=== PATIENT | female | born 1955 | race Caucasian/White ===

== ENCOUNTER 2018-08-19 10:01 | Inpatient (IN) ==
[2018-08-19] MEDS ORDERED: SODIUM CHLORIDE 0.9% 1000ML 1,000 ML IV ONE (10:16)
[2018-08-19] MEDS ORDERED: PIPERACILL/TAZOBAC CONSULT ACTIVE PRN ×2 (10:21→12:38)
[2018-08-19] MEDS ORDERED: PIPERACILLIN/TAZOBACTAM 4.5 GM/120 ML BAG IV ONE (10:21)
--- NOTE | 2018-08-19 10:27 | Emergency Department Note ---
Entered by Kevin Damon acting as a scribe for Gustabo Rajput DO History of Present Illness General Chief complaint: Lethargic Time Seen by Provider: 08/19/18 10:11 Source: patient Limitations: altered mental status History of Present Illness Provider complaint: Fever/Lower abdominal pain Onset (ago): day(s) (today) Location: head (AMS) and abdomen Pain Consistency: + other (persistent AMS) Quality: + other (Fever) Treatments prior to arrival: other (Tylenol) This history is limited secondary to the altered mental status of the patient. The patient is a 63 year old female who presents to the Emergency Room from [facility] for an altered mental status with elevated creatinine and lithium levels as well as a fever. The patient has been in [facility] for 1 week. Today the patient was found to be febrile with abnormal labs as mentioned above. Her fever broke with Tylenol given pre-hospital. She is currently complaining of lower abdominal pain. EMS state that upon her arrival she was tachycardic and slightly hypotensive. The note from [facility] states that her Sodium was 154. Her medical record reveals a history of diabetes, hypertension, CAD, HLD, glaucoma, and major depressive disorder. Home Medications Home Medications Medication Instructions Recorded Confirmed Type acetaminophen 325 mg PO Q4H PRN 08/19/18 08/19/18 History alum-mag hydroxide-simeth [Mag-Al 30 ml PO QID PRN 08/19/18 08/19/18 History Plus] aripiprazole 15 mg PO DAILY 08/19/18 08/19/18 History atorvastatin 40 mg PO HS 08/19/18 08/19/18 History lamotrigine 50 mg PO BID 08/19/18 08/19/18 History lorazepam 0.5 mg PO TID PRN 08/19/18 08/19/18 History magnesium hydroxide [Milk of 30 ml PO DAILY PRN 08/19/18 08/19/18 History Magnesia] montelukast 10 mg PO PM 08/19/18 08/19/18 History omeprazole 20 mg PO DAILY 08/19/18 08/19/18 History trazodone 100 mg PO DAILY 08/19/18 08/19/18 History Allergies Allergy/AdvReac Type Severity Reaction Status Date / Time aspirin Allergy Unknown Unverified 08/19/18 10:50 codeine Allergy Unknown Unverified 08/19/18 10:50 diazepam Allergy Unknown Unverified 08/19/18 10:50 fluoxetine Allergy Unknown Unverified 08/19/18 10:50 paroxetine Allergy Unknown Unverified 08/19/18 10:50 pseudoephedrine Allergy Unknown Unverified 08/19/18 10:50 tramadol Allergy Unknown Unverified 08/19/18 10:50 Past Med/Surg History Medical History Diabetes H/O: hysterectomy HLD (hyperlipidemia) HTN (hypertension) Major depressive disorder Surgical History History of appendectomy History of cholecystectomy Status post creation of urethral sling by suprapubic approach Social History Current Living Situation: Other Current Living Situation Comment: resides at [facility] Other Information That Helps Us Care for You: No Feels Safe at Home: Yes Safety Concerns: Feels Safe At This Time Smoking Status: Never smoker Do You Dip or Chew Tobacco: No Second Hand Exposure: No Tobacco Cessation Education Requested by Patient: No Hx Alcohol Use: No Hx Substance Use: No Beliefs That Will Affect Care: None Preferred Language: Tajik Communication Ability: Effective Realty Specialist Required: No Review of Systems ROS limited secondary to AMS Physical Exam Vital Signs Vital Signs - 24 hr 08/19/18 10:09 08/19/18 10:38 08/19/18 10:51 Temperature 37 C Temperature Source Oral Sepsis Recent Fever Within 48 Hours No Sepsis Action Taken by Nursing No Action Required Pulse Rate 121 H 121 H Pulse Rate [Apical] 122 H Pulse Rhythm Regular Pulse Rhythm [Apical] Regular Pulse Strength [Apical] Normal Respiratory Rate 20 28 H 17 Respiratory Effort / Characteristics Non-Labored Spontaneous Non-Labored Spontaneous Respiratory Depth Normal Normal Respiratory Pattern Regular Blood Pressure 115/72 Blood Pressure [Right Arm] 120/64 Blood Pressure Mean 86 Blood Pressure Mean [Right Arm] 82 Blood Pressure Position Lying Blood Pressure Position [Right Arm] Lying Pulse Oximetry 98 95 95 Oxygen Delivery Method Room Air Room Air Room Air 08/19/18 11:19 08/19/18 12:03 08/19/18 13:00 Temperature Temperature Source Sepsis Recent Fever Within 48 Hours Sepsis Action Taken by Nursing Pulse Rate Pulse Rate [Apical] 91 H 114 H 94 H Pulse Rhythm Pulse Rhythm [Apical] Pulse Strength [Apical] Respiratory Rate 20 24 20 Respiratory Effort / Characteristics Non-Labored Respiratory Depth Normal Respiratory Pattern Blood Pressure Blood Pressure [Right Arm] 117/58 L 114/65 144/64 H Blood Pressure Mean Blood Pressure Mean [Right Arm] 77 81 90 Blood Pressure Position Blood Pressure Position [Right Arm] Pulse Oximetry 95 92 98 Oxygen Delivery Method Room Air Room Air Room Air 08/19/18 13:35 08/19/18 14:30 08/19/18 14:35 Temperature 36.9 C Temperature Source Oral Sepsis Recent Fever Within 48 Hours Sepsis Action Taken by Nursing Pulse Rate 83 Pulse Rate [Apical] 83 Pulse Rhythm Pulse Rhythm [Apical] Regular Pulse Strength [Apical] Normal Respiratory Rate 20 20 Respiratory Effort / Characteristics Non-Labored Spontaneous Non-Labored Spontaneous Respiratory Depth Normal Normal Respiratory Pattern Regular Regular Blood Pressure 135/56 L Blood Pressure [Right Arm] 114/68 Blood Pressure Mean Blood Pressure Mean [Right Arm] 83 Blood Pressure Position Blood Pressure Position [Right Arm] Lying Pulse Oximetry 93 94 Oxygen Delivery Method Room Air Room Air Room Air 08/19/18 15:57 08/19/18 18:45 Temperature 36.8 C 37.1 C Temperature Source Oral Oral Sepsis Recent Fever Within 48 Hours Sepsis Action Taken by Nursing Pulse Rate Pulse Rate [Apical] 94 H 93 H Pulse Rhythm Pulse Rhythm [Apical] Pulse Strength [Apical] Respiratory Rate 18 18 Respiratory Effort / Characteristics Respiratory Depth Respiratory Pattern Blood Pressure Blood Pressure [Right Arm] 132/69 137/77 Blood Pressure Mean Blood Pressure Mean [Right Arm] 90 97 Blood Pressure Position Blood Pressure Position [Right Arm] Lying Lying Pulse Oximetry 95 94 Oxygen Delivery Method Room Air Room Air GENERAL: Patient is awake and alert. She is somewhat anxious appearing. She follows commands intermittently but slowly. EYES: The conjunctivae are clear. The pupils are round and reactive. EARS, NOSE, MOUTH AND THROAT: Mucous members are dry. NECK: The neck is nontender and supple. RESPIRATORY: Normal respiratory effort is noted there is no evidence of wheezing rhonchi or rales CARDIOVASCULAR: Tachycardic rate with regular rhythm was noted. There is no definite murmur noted to auscultation. GASTROINTESTINAL: The abdomen is moderately distended and suprapubic tenderness is noted to palpation. There is no guarding or rigidity. MUSCULOSKELETAL/EXTREMITIES: There is no evidence of gross deformity full range of motion is noted in the hips and shoulders SKIN: There is no obvious evidence of any rash. Trace pedal edema was noted bilaterally. NEUROLOGIC: Patient is awake. She does not answer questions appropriately. I am unable to assess orientation at this time. Patellar tendon reflexes are diminished bilaterally. Patient is tremulous. Course 1017: Past medical records reviewed. The patient was evaluated in room B6, and a complete history and physical examination were performed. 1251: I reviewed the patient's case with Dr. Donny TTAE Hospitalist. He will evaluate the patient for further management. Consultations Consultation #1: 1251: I reviewed the patient's case with Dr. Donny TATE Hospitalist. He will evaluate the patient for further management. Administered Medications Atorvastatin Calcium (Lipitor) 40 mg PO HS CH[facility]O Stop: 09/18/18 20:59 Last Admin: 08/19/18 21:32 Dose: 40 mg Heparin Sodium (Porcine) (Heparin Sodium (Porcine)) 5,000 units SQ Q12 [facility] Stop: 09/18/18 20:59 Last Admin: 08/19/18 21:31 Dose: 5,000 units Piperacillin Sod/Tazobactam (Sod 3.375 gm/ Dextrose) 115 mls @ 28.75 mls/hr IV Q12H CHAYITO; Protocol Stop: 08/21/18 18:59 Last Admin: 08/19/18 19:47 Dose: 28.8 mls/hr Sodium Chloride (Nss 1000ml) 1,000 mls @ 125 mls/hr IV .Q8H [facility] Stop: 09/18/18 15:14 Last Admin: 08/19/18 15:30 Dose: 125 mls/hr Insulin Aspart (Novolog Flexpen) 0 units SC ACHS CH[facility]O; Protocol Stop: 09/18/18 16:29 Last Admin: 08/19/18 21:34 Dose: Not Given Admin: 08/19/18 17:12 Dose: Not Given Lamotrigine (Lamictal) 50 mg PO BID CH[facility]O Stop: 09/18/18 20:59 Last Admin: 08/19/18 21:33 Dose: 50 mg Discontinued Medications Sodium Chloride (Nss 1000ml) 1,000 mls @ 999 mls/hr IV .Q1H1M ONE Stop: 08/19/18 11:16 Last Infusion: 08/19/18 12:01 Dose: 0 mls/hr Admin: 08/19/18 10:43 Dose: 999 mls/hr Piperacillin Sod/Tazobactam Sod (Zosyn) 4.5 gm in 120 mls @ 240 mls/hr IV NOW ONE Stop: 08/19/18 10:50 Last Infusion: 08/19/18 12:01 Dose: 0 mls/hr Admin: 08/19/18 11:20 Dose: 240 mls/hr Sodium Chloride (Nss 1000ml) 2,000 mls @ 999 mls/hr IV .Q2H1M ONE Stop: 08/19/18 12:51 Last Infusion: 08/19/18 15:25 Dose: 0 mls/hr Admin: 08/19/18 12:01 Dose: 999 mls/hr Medical Decision Making Differential Diagnosis Differential diagnosis: Etiologies such as sepsis, UTI, pneumonia, bacteremia, metabolic process, electrolyte abnormalities, cardiac sources, intracerebral event, intra- abdominal process, toxicological process, neurologic process, as well as others were entertained. Medical Records Attestation: I reviewed the patient's medical records. Home Medications Current Medication List: was personally reviewed by me Laboratory Data Attestation: I reviewed the patient's lab results. Result diagrams: 08/19/18 10:40 08/19/18 10:40 Lab Results 08/19/18 08/19/18 08/19/18 Range/Units 10:40 10:40 10:40 WBC 20.10 H (4.8-10.8) K/uL RBC 4.23 (4.2-5.4) M/uL Hgb 13.3 (12.0-16.0) g/dL POC Hgb (12.0-16.0) g/dl Hct 41.8 (37-47) % POC Hct (37-47) % MCV 98.8 (80-100) fL MCH 31.4 (25-34) pg MCHC 31.8 L (32-36) g/dL RDW Std Deviation 50.2 H (36.4-46.3) fL RDW Coeff of Shayy 14.1 (11.5-14.5) % Plt Count 327 (130-400) K/uL MPV 10.1 (7.4-10.4) fL Immature Gran % (Auto) 0.3 % Neut % (Auto) 74.8 % Lymph % (Auto) 19.0 % [place] % (Auto) 5.1 % Eos % (Auto) 0.5 % Baso % (Auto) 0.3 % Immature Gran # (Auto) 0.07 H (0.00-0.02) K/uL Neut # (Auto) 15.02 H (1.4-6.5) K/uL Lymph # (Auto) 3.81 H (1.2-3.4) K/uL [place] # (Auto) 1.02 H (0.11-0.59) K/uL Eos # (Auto) 0.11 (0-0.5) K/uL Baso # (Auto) 0.07 (0-0.2) K/uL ESR (0-21) mm/hr PT 11.8 (9.0-12.0) Seconds INR 1.2 H (0.9-1.1) APTT 24.0 (21.0-31.0) Seconds PTT Ratio 0.9 VBG pH (7.36-7.41) VBG pCO2 (38-50) mmHg VBG pO2 mmHg VBG HCO3 mmol/L VBG O2 Saturation % VBG Base Excess mEq/L Barometric Pressure mm/Hg POC Sodium (135-144) mEq/L Sodium 141 (136-145) mmol/L POC Potassium (3.3-5.0) mEq/L Potassium 4.0 (3.5-5.1) mmol/L POC Chloride (101-112) mEq/L Chloride 110 H (98-107) mmol/L Carbon Dioxide 24 (21-32) mmol/L POC Total CO2 (24-31) mEq/l Anion Gap 7.0 (3-11) POC Anion Gap (16-25) mmol/L POC BUN (7-18) mg/dl BUN 93 H (7-18) mg/dl Creatinine 5.66 H* (0.6-1.2) mg/dl POC Creatinine (0.6-1.3) mg/dl Est Cr Clr Drug Dosing 11.1 ml/min Est GFR ( Amer) 8.6 Est GFR (Non-Af Amer) 7.4 BUN/Creatinine Ratio 16.5 (10-20) Glucose 129 H (70-99) mg/dl POC Glucose (70-99) POC Glucose (other) (70-99) mg/dl Lactate (0.4-2.0) mmol/L Calcium 9.5 (8.5-10.1) mg/dl POC Ioniz Calcium Elaine (1.12-1.32) mmol/l Magnesium 2.5 H (1.8-2.4) mg/dl Total Bilirubin 0.7 (0.2-1) mg/dl AST 81 H (15-37) U/L ALT 49 (12-78) U/L Alkaline Phosphatase 79 (45-117) U/L Total Creatine Kinase (26-192) U/L Troponin I 0.479 H* (0-0.045) ng/ml C-Reactive Protein < 0.29 (0-0.29) mg/dl Total Protein 7.1 (6.4-8.2) gm/dl Albumin 3.7 (3.4-5.0) gm/dl Globulin 3.4 (2.5-4.0) gm/dl Albumin/Globulin Ratio 1.1 (0.9-2) Urine Color Urine Appearance (Clear) Urine pH (4.5-7.5) Ur Specific [place] (1.000-1.030) Urine Protein (Negative) Urine Glucose (UA) (Negative) Urine Ketones (Negative) Urine Blood (Negative) Urine Nitrite (Negative) Urine Bilirubin (Negative) Urine Urobilinogen (Negative) Ur Leukocyte Esterase (Negative) Urine WBC (Auto) (0-5) /hpf Urine RBC (Auto) (0-4) /hpf U Hyaline Cast (Auto) (0-5) /lpf U Epithel Cells (Auto) (0-5) /lpf Urine Bacteria (Auto) (Negative) Ur Renal Epithelial Cell (0-5) /lpf Calcium Oxalate Crystal (None Prsent) Amorphous Sediment (None Prsent) Granular Casts (0) /lpf Urine Mucus (None Prsent) Ur Random Creatinine mg/dl U Random Total Protein (0-11.9) mg/dl Ur Random Sodium mmol/L Protein/Creatinin Ratio (0-0.2) [place] (0.6-1.2) mmol/L 08/19/18 08/19/18 08/19/18 Range/Units 10:40 10:40 10:40 WBC (4.8-10.8) K/uL RBC (4.2-5.4) M/uL Hgb (12.0-16.0) g/dL POC Hgb (12.0-16.0) g/dl Hct (37-47) % POC Hct (37-47) % MCV (80-100) fL MCH (25-34) pg MCHC (32-36) g/dL RDW Std Deviation (36.4-46.3) fL RDW Coeff of Shayy (11.5-14.5) % Plt Count (130-400) K/uL MPV (7.4-10.4) fL Immature Gran % (Auto) % Neut % (Auto) % Lymph % (Auto) % [place] % (Auto) % Eos % (Auto) % Baso % (Auto) % Immature Gran # (Auto) (0.00-0.02) K/uL Neut # (Auto) (1.4-6.5) K/uL Lymph # (Auto) (1.2-3.4) K/uL [place] # (Auto) (0.11-0.59) K/uL Eos # (Auto) (0-0.5) K/uL Baso # (Auto) (0-0.2) K/uL ESR 11 (0-21) mm/hr PT (9.0-12.0) Seconds INR (0.9-1.1) APTT (21.0-31.0) Seconds PTT Ratio VBG pH (7.36-7.41) VBG pCO2 (38-50) mmHg VBG pO2 mmHg VBG HCO3 mmol/L VBG O2 Saturation % VBG Base Excess mEq/L Barometric Pressure mm/Hg POC Sodium (135-144) mEq/L Sodium (136-145) mmol/L POC Potassium (3.3-5.0) mEq/L Potassium (3.5-5.1) mmol/L POC Chloride (101-112) mEq/L Chloride (98-107) mmol/L Carbon Dioxide (21-32) mmol/L POC Total CO2 (24-31) mEq/l Anion Gap (3-11) POC Anion Gap (16-25) mmol/L POC BUN (7-18) mg/dl BUN (7-18) mg/dl Creatinine (0.6-1.2) mg/dl POC Creatinine (0.6-1.3) mg/dl Est Cr Clr Drug Dosing ml/min Est GFR ( Amer) Est GFR (Non-Af Amer) BUN/Creatinine Ratio (10-20) Glucose (70-99) mg/dl POC Glucose (70-99) POC Glucose (other) (70-99) mg/dl Lactate 1.6 (0.4-2.0) mmol/L Calcium (8.5-10.1) mg/dl POC Ioniz Calcium Elaine (1.12-1.32) mmol/l Magnesium (1.8-2.4) mg/dl Total Bilirubin (0.2-1) mg/dl AST (15-37) U/L ALT (12-78) U/L Alkaline Phosphatase (45-117) U/L Total Creatine Kinase (26-192) U/L Troponin I (0-0.045) ng/ml C-Reactive Protein (0-0.29) mg/dl Total Protein (6.4-8.2) gm/dl Albumin (3.4-5.0) gm/dl Globulin (2.5-4.0) gm/dl Albumin/Globulin Ratio (0.9-2) Urine Color Urine Appearance (Clear) Urine pH (4.5-7.5) Ur Specific [place] (1.000-1.030) Urine Protein (Negative) Urine Glucose (UA) (Negative) Urine Ketones (Negative) Urine Blood (Negative) Urine Nitrite (Negative) Urine Bilirubin (Negative) Urine Urobilinogen (Negative) Ur Leukocyte Esterase (Negative) Urine WBC (Auto) (0-5) /hpf Urine RBC (Auto) (0-4) /hpf U Hyaline Cast (Auto) (0-5) /lpf U Epithel Cells (Auto) (0-5) /lpf Urine Bacteria (Auto) (Negative) Ur Renal Epithelial Cell (0-5) /lpf Calcium Oxalate Crystal (None Prsent) Amorphous Sediment (None Prsent) Granular Casts (0) /lpf Urine Mucus (None Prsent) Ur Random Creatinine mg/dl U Random Total Protein (0-11.9) mg/dl Ur Random Sodium mmol/L Protein/Creatinin Ratio (0-0.2) [place] 1.2 (0.6-1.2) mmol/L 08/19/18 08/19/18 08/19/18 Range/Units 10:45 10:49 11:04 WBC (4.8-10.8) K/uL RBC (4.2-5.4) M/uL Hgb (12.0-16.0) g/dL POC Hgb 13.3 (12.0-16.0) g/dl Hct (37-47) % POC Hct 39 (37-47) % MCV (80-100) fL MCH (25-34) pg MCHC (32-36) g/dL RDW Std Deviation (36.4-46.3) fL RDW Coeff of Shayy (11.5-14.5) % Plt Count (130-400) K/uL MPV (7.4-10.4) fL Immature Gran % (Auto) % Neut % (Auto) % Lymph % (Auto) % [place] % (Auto) % Eos % (Auto) % Baso % (Auto) % Immature Gran # (Auto) (0.00-0.02) K/uL Neut # (Auto) (1.4-6.5) K/uL Lymph # (Auto) (1.2-3.4) K/uL [place] # (Auto) (0.11-0.59) K/uL Eos # (Auto) (0-0.5) K/uL Baso # (Auto) (0-0.2) K/uL ESR (0-21) mm/hr PT (9.0-12.0) Seconds INR (0.9-1.1) APTT (21.0-31.0) Seconds PTT Ratio VBG pH 7.41 (7.36-7.41) VBG pCO2 37 L (38-50) mmHg VBG pO2 50 mmHg VBG HCO3 23 mmol/L VBG O2 Saturation 83.8 % VBG Base Excess -1.1 mEq/L Barometric Pressure 739.3 mm/Hg POC Sodium 145 H (135-144) mEq/L Sodium (136-145) mmol/L POC Potassium 4.1 (3.3-5.0) mEq/L Potassium (3.5-5.1) mmol/L POC Chloride 108 (101-112) mEq/L Chloride (98-107) mmol/L Carbon Dioxide (21-32) mmol/L POC Total CO2 22 L (24-31) mEq/l Anion Gap (3-11) POC Anion Gap 20.0 (16-25) mmol/L POC BUN 93 H (7-18) mg/dl BUN (7-18) mg/dl Creatinine (0.6-1.2) mg/dl POC Creatinine 5.6 H* (0.6-1.3) mg/dl Est Cr Clr Drug Dosing ml/min Est GFR ( Amer) Est GFR (Non-Af Amer) BUN/Creatinine Ratio (10-20) Glucose (70-99) mg/dl POC Glucose (70-99) POC Glucose (other) 131 H (70-99) mg/dl Lactate (0.4-2.0) mmol/L Calcium (8.5-10.1) mg/dl POC Ioniz Calcium Elaine 1.19 (1.12-1.32) mmol/l Magnesium (1.8-2.4) mg/dl Total Bilirubin (0.2-1) mg/dl AST (15-37) U/L ALT (12-78) U/L Alkaline Phosphatase (45-117) U/L Total Creatine Kinase (26-192) U/L Troponin I (0-0.045) ng/ml C-Reactive Protein (0-0.29) mg/dl Total Protein (6.4-8.2) gm/dl Albumin (3.4-5.0) gm/dl Globulin (2.5-4.0) gm/dl Albumin/Globulin Ratio (0.9-2) Urine Color Dark Yellow Urine Appearance Cloudy H (Clear) Urine pH 5.0 (4.5-7.5) Ur Specific [place] 1.025 (1.000-1.030) Urine Protein Negative (Negative) Urine Glucose (UA) Negative (Negative) Urine Ketones Trace H (Negative) Urine Blood Negative (Negative) Urine Nitrite Negative (Negative) Urine Bilirubin Negative (Negative) Urine Urobilinogen Negative (Negative) Ur Leukocyte Esterase Negative (Negative) Urine WBC (Auto) 1-5 (0-5) /hpf Urine RBC (Auto) 0-4 (0-4) /hpf U Hyaline Cast (Auto) 5-10 H (0-5) /lpf U Epithel Cells (Auto) >30 H (0-5) /lpf Urine Bacteria (Auto) Negative (Negative) Ur Renal Epithelial Cell (0-5) /lpf Calcium Oxalate Crystal Present H (None Prsent) Amorphous Sediment Present H (None Prsent) Granular Casts (0) /lpf Urine Mucus (None Prsent) Ur Random Creatinine mg/dl U Random Total Protein (0-11.9) mg/dl Ur Random Sodium mmol/L Protein/Creatinin Ratio (0-0.2) [place] (0.6-1.2) mmol/L 08/19/18 08/19/18 08/19/18 Range/Units 15:47 16:27 17:35 WBC (4.8-10.8) K/uL RBC (4.2-5.4) M/uL Hgb (12.0-16.0) g/dL POC Hgb (12.0-16.0) g/dl Hct (37-47) % POC Hct (37-47) % MCV (80-100) fL MCH (25-34) pg MCHC (32-36) g/dL RDW Std Deviation (36.4-46.3) fL RDW Coeff of Shayy (11.5-14.5) % Plt Count (130-400) K/uL MPV (7.4-10.4) fL Immature Gran % (Auto) % Neut % (Auto) % Lymph % (Auto) % [place] % (Auto) % Eos % (Auto) % Baso % (Auto) % Immature Gran # (Auto) (0.00-0.02) K/uL Neut # (Auto) (1.4-6.5) K/uL Lymph # (Auto) (1.2-3.4) K/uL [place] # (Auto) (0.11-0.59) K/uL Eos # (Auto) (0-0.5) K/uL Baso # (Auto) (0-0.2) K/uL ESR 6 (0-21) mm/hr PT (9.0-12.0) Seconds INR (0.9-1.1) APTT (21.0-31.0) Seconds PTT Ratio VBG pH (7.36-7.41) VBG pCO2 (38-50) mmHg VBG pO2 mmHg VBG HCO3 mmol/L VBG O2 Saturation % VBG Base Excess mEq/L Barometric Pressure mm/Hg POC Sodium (135-144) mEq/L Sodium (136-145) mmol/L POC Potassium (3.3-5.0) mEq/L Potassium (3.5-5.1) mmol/L POC Chloride (101-112) mEq/L Chloride (98-107) mmol/L Carbon Dioxide (21-32) mmol/L POC Total CO2 (24-31) mEq/l Anion Gap (3-11) POC Anion Gap (16-25) mmol/L POC BUN (7-18) mg/dl BUN (7-18) mg/dl Creatinine (0.6-1.2) mg/dl POC Creatinine (0.6-1.3) mg/dl Est Cr Clr Drug Dosing ml/min Est GFR ( Amer) Est GFR (Non-Af Amer) BUN/Creatinine Ratio (10-20) Glucose (70-99) mg/dl POC Glucose 121 H (70-99) POC Glucose (other) (70-99) mg/dl Lactate (0.4-2.0) mmol/L Calcium (8.5-10.1) mg/dl POC Ioniz Calcium Elaine (1.12-1.32) mmol/l Magnesium (1.8-2.4) mg/dl Total Bilirubin (0.2-1) mg/dl AST (15-37) U/L ALT (12-78) U/L Alkaline Phosphatase (45-117) U/L Total Creatine Kinase (26-192) U/L Troponin I (0-0.045) ng/ml C-Reactive Protein (0-0.29) mg/dl Total Protein (6.4-8.2) gm/dl Albumin (3.4-5.0) gm/dl Globulin (2.5-4.0) gm/dl Albumin/Globulin Ratio (0.9-2) Urine Color Yellow Urine Appearance Cloudy H (Clear) Urine pH 5.0 (4.5-7.5) Ur Specific [place] 1.020 (1.000-1.030) Urine Protein 1+ H (Negative) Urine Glucose (UA) Negative (Negative) Urine Ketones Trace H (Negative) Urine Blood 3+ H (Negative) Urine Nitrite Negative (Negative) Urine Bilirubin Negative (Negative) Urine Urobilinogen Negative (Negative) Ur Leukocyte Esterase 2+ H (Negative) Urine WBC (Auto) >30 H (0-5) /hpf Urine RBC (Auto) 10-30 H (0-4) /hpf U Hyaline Cast (Auto) 5-10 H (0-5) /lpf U Epithel Cells (Auto) >30 H (0-5) /lpf Urine Bacteria (Auto) Negative (Negative) Ur Renal Epithelial Cell 0-5 (0-5) /lpf Calcium Oxalate Crystal (None Prsent) Amorphous Sediment (None Prsent) Granular Casts 1-5 H (0) /lpf Urine Mucus Present H (None Prsent) Ur Random Creatinine mg/dl U Random Total Protein (0-11.9) mg/dl Ur Random Sodium mmol/L Protein/Creatinin Ratio (0-0.2) [place] (0.6-1.2) mmol/L 08/19/18 08/19/18 08/19/18 Range/Units 17:35 18:30 20:11 WBC (4.8-10.8) K/uL RBC (4.2-5.4) M/uL Hgb (12.0-16.0) g/dL POC Hgb (12.0-16.0) g/dl Hct (37-47) % POC Hct (37-47) % MCV (80-100) fL MCH (25-34) pg MCHC (32-36) g/dL RDW Std Deviation (36.4-46.3) fL RDW Coeff of Shayy (11.5-14.5) % Plt Count (130-400) K/uL MPV (7.4-10.4) fL Immature Gran % (Auto) % Neut % (Auto) % Lymph % (Auto) % [place] % (Auto) % Eos % (Auto) % Baso % (Auto) % Immature Gran # (Auto) (0.00-0.02) K/uL Neut # (Auto) (1.4-6.5) K/uL Lymph # (Auto) (1.2-3.4) K/uL [place] # (Auto) (0.11-0.59) K/uL Eos # (Auto) (0-0.5) K/uL Baso # (Auto) (0-0.2) K/uL ESR (0-21) mm/hr PT (9.0-12.0) Seconds INR (0.9-1.1) APTT (21.0-31.0) Seconds PTT Ratio VBG pH (7.36-7.41) VBG pCO2 (38-50) mmHg VBG pO2 mmHg VBG HCO3 mmol/L VBG O2 Saturation % VBG Base Excess mEq/L Barometric Pressure mm/Hg POC Sodium (135-144) mEq/L Sodium (136-145) mmol/L POC Potassium (3.3-5.0) mEq/L Potassium (3.5-5.1) mmol/L POC Chloride (101-112) mEq/L Chloride (98-107) mmol/L Carbon Dioxide (21-32) mmol/L POC Total CO2 (24-31) mEq/l Anion Gap (3-11) POC Anion Gap (16-25) mmol/L POC BUN (7-18) mg/dl BUN (7-18) mg/dl Creatinine (0.6-1.2) mg/dl POC Creatinine (0.6-1.3) mg/dl Est Cr Clr Drug Dosing ml/min Est GFR ( Amer) Est GFR (Non-Af Amer) BUN/Creatinine Ratio (10-20) Glucose (70-99) mg/dl POC Glucose 100 H (70-99) POC Glucose (other) (70-99) mg/dl Lactate (0.4-2.0) mmol/L Calcium (8.5-10.1) mg/dl POC Ioniz Calcium [place] (1.12-1.32) mmol/l Magnesium (1.8-2.4) mg/dl Total Bilirubin (0.2-1) mg/dl AST (15-37) U/L ALT (12-78) U/L Alkaline Phosphatase (45-117) U/L Total Creatine Kinase 1883 H (26-192) U/L Troponin I 0.348 H* (0-0.045) ng/ml C-Reactive Protein (0-0.29) mg/dl Total Protein (6.4-8.2) gm/dl Albumin (3.4-5.0) gm/dl Globulin (2.5-4.0) gm/dl Albumin/Globulin Ratio (0.9-2) Urine Color Urine Appearance (Clear) Urine pH (4.5-7.5) Ur Specific [place] (1.000-1.030) Urine Protein (Negative) Urine Glucose (UA) (Negative) Urine Ketones (Negative) Urine Blood (Negative) Urine Nitrite (Negative) Urine Bilirubin (Negative) Urine Urobilinogen (Negative) Ur Leukocyte Esterase (Negative) Urine WBC (Auto) (0-5) /hpf Urine RBC (Auto) (0-4) /hpf U Hyaline Cast (Auto) (0-5) /lpf U Epithel Cells (Auto) (0-5) /lpf Urine Bacteria (Auto) (Negative) Ur Renal Epithelial Cell (0-5) /lpf Calcium Oxalate Crystal (None Prsent) Amorphous Sediment (None Prsent) Granular Casts (0) /lpf Urine Mucus (None Prsent) Ur Random Creatinine 134.0 mg/dl U Random Total Protein 76.4 H (0-11.9) mg/dl Ur Random Sodium 53 mmol/L Protein/Creatinin Ratio 0.6 H (0-0.2) [place] (0.6-1.2) mmol/L Imaging Data Attestation: I personally reviewed and interpreted this imaging study as follows : Radiologist's Impression: CT OF THE HEAD WITHOUT CONTRAST CLINICAL HISTORY: Altered mental status. COMPARISON STUDY: No previous studies for comparison. CT DOSE: 638.56 mGycm TECHNIQUE: Helical axial images of the head were obtained without IV contrast. Automated exposure control was utilized for the study. A dose lowering technique was utilized adhering to the principles of ALARA. FINDINGS: No acute intracranial hemorrhage, midline shift or mass effect is present. Ventricular system is normal. Basilar cisterns are patent. There are no extra-axial collections. [place]-white differentiation is maintained. There are no findings to suggest acute dural sinus thrombosis or acute territorial infarct. There are no significant calvarial abnormalities. Visualized portions of the sinuses and mastoid air cells are clear. IMPRESSION: No acute intracranial findings. Electronically signed by: Bradford Hanley M.D. 08/19/2018 11:44 AM XR chest 1V portable CLINICAL HISTORY: Sepsis. COMPARISON STUDY: No previous studies for comparison. FINDINGS: Incidental note is made of cholecystectomy clips. There is no pneumothorax or pleural effusion. No consolidation is present. There is no evidence for pulmonary edema. There is mild cardiomegaly. IMPRESSION: 1. No acute cardiopulmonary findings. 2. Mild cardiomegaly. Electronically signed by: Bradford Hanley M.D. 08/19/2018 10:29 AM ABDOMEN AND PELVIS CT WITHOUT CONTRAST CT DOSE: 1045.41 mGycm HISTORY: Acute renal failure renal issues, new onset TECHNIQUE: Multiaxial CT images of the abdomen and pelvis were performed without contrast. A dose lowering technique was utilized adhering to the principles of ALARA. COMPARISON STUDY: None. FINDINGS: Mild dependent subsegmental bibasilar atelectasis. Mildly limited study secondary to positioning of the patient's upper extremities and lack of IV contrast. Imaged inferior cardiac chambers are mildly enlarged. Prior cholecystectomy. Mild dilation of the common bile duct, likely on a postsurgical basis. The unenhanced liver, spleen, pancreas and adrenal glands are unremarkable. Mild nonspecific bilateral perinephric stranding. No renal calculi or obstructive uropathy. Decompressed urinary bladder lumen with Browne catheter in place. Air within the bladder lumen is likely secondary to instrumentation. Prior hysterectomy. No adnexal mass lesions. No abdominal aortic aneurysm. No adenopathy. Eccentric air noted about the proximal third portion of the duodenum on image 198 series 3 may reflect underlying duodenal diverticulum. No small bowel obstruction. Air-fluid levels are noted throughout the colon, notably within the rectum and sigmoid. Mild gaseous distention about the transverse colon. Prior appendectomy. No ascites or mesenteric inflammatory changes. Soft tissues are within normal limits. Bones appear to be intact. Multilevel facet arthrosis with spondylitic spurring intervertebral disc space narrowing. IMPRESSION: 1. No renal calculi or hydronephrosis. 2. Air-fluid levels throughout the colon may reflect diarrheal illness. No bowel obstruction. 3. Prior cholecystectomy and hysterectomy. 4. Additional findings as above. Electronically signed by: George Dumont M.D. 08/19/2018 11:47 AM ECG Data Attestation: I personally reviewed and interpreted this ECG as follows: Indication: altered mental status and weakness Rate (beats per minute): 122 Rhythm: sinus tachycardia Findings: + other (poor r-wave progression) and + T-wave inversion (inferior and lateral); no ectopy Comparison ECG Date: no prior available MDM Narrative The patient is a 63-year-old female who presented to the emergency department for an evaluation of altered mental status. The patient reportedly had a fever as well as altered mental status. She was also recently noted to be in renal failure on laboratory studies that were done at the [facility]. The patient is currently an inpatient at the [facility] for voluntary mental health treatment. The patient was somewhat confused when she presented to the emergency department. She was treated with IV fluids. A Browne catheter was placed. The patient was given IV antibiotics. She slowly started to improve while she was in the emergency department. The patient denied any specific overdoses. I discussed her case with the on-call [facility] hospitalist. They have agreed to evaluate the patient in the emergency department for further management and disposition. It is unclear if this is related to a medication or an infection. The patient had other laboratory studies done while she was in the emergency department as well as on the floor. She was reevaluated multiple times. I did review the patient's information that was sent from the [facility]. Impression & Plan Sepsis, Acute renal failure Critical Care Time I have personally spent greater than 45 minutes of critical care time in the direct management of this patient. This includes bedside care, interpretation of diagnostic studies, and testing, discussion with consultants, patient, and family members, and other required patient management activities. This 45 minutes is in excess of all separately billable procedures. Critical Care Time: Yes Total Critical Care Time: 45 Discharge Plan Visit Data *Final* Discharge Date/Time: 08/19/18 13:35 Chief Complaint: Lethargic ED Provider: Gustabo Rajput Discharge Problem: Sepsis, Acute renal failure Patient Disposition: Admitted As Inpatient Discharge Instructions Interventions: ED Discharge Assessment Last Done: 08/19/18 13:35 The scribe's documentation has been prepared under my direction and personally reviewed by me in its entirety. I confirm that the note above accurately reflects all work, treatment, procedures, and medical decision making performed by me.
--- NOTE | 2018-08-19 10:30 | XRay Report ---
XR chest 1V portable CLINICAL HISTORY: Sepsis. COMPARISON STUDY: No previous studies for comparison. FINDINGS: Incidental note is made of cholecystectomy clips. There is no pneumothorax or pleural effus ion. No consolidation is present. There is no evidence for pulmonary edema. There is mild cardiomegal y. IMPRESSION: 1. No acute cardiopulmonary findings. 2. Mild cardiomegaly. Electronically signed by: Bradford Hanley M.D. 08/19/2018 10:29 AM
[2018-08-19] MEDS ORDERED: SODIUM CHLORIDE 0.9% 1000ML 2,000 ML IV ONE (10:51)
[2018-08-19 10:58] LABS: iSTAT Hemoglobin 13.3 g/dl (12.0-16.0); iSTAT Ionized Calcium 1.19 mmol/l (1.12-1.32)
[2018-08-19 11:04] LABS: Appearance Urine Cloudy (Clear); Bacteria Urine Automated Negative (Negative); Bilirubin Urine Negative (Negative); Color Urine Dark Yellow; Epithelial Cell Urine Auto >30 /lpf (0-5); Glucose Urine UA Negative (Negative); Ketones Urine Trace (Negative); Leukocyte Esterase Urine Negative (Negative); Nitrite Urine Negative (Negative); Protein Urine Negative (Negative); Specific Gravity Urine 1.025 (1.000-1.030); Urobilinogen Urine Negative (Negative)
[2018-08-19 11:04] LABS: Basophils # (auto) 0.07 K/uL (0-0.2); Basophils % (auto) 0.3 %; Eosinophils # (auto) 0.11 K/uL (0-0.5); Eosinophils % (auto) 0.5 %; Hematocrit (blood only) 41.8 % (37-47); Hemoglobin 13.3 g/dL (12.0-16.0); Immature Granulocytes # (auto) 0.07 K/uL (0.00-0.02); Immature Granulocytes % (auto) 0.3 %; Lymphocytes # (auto) 3.81 K/uL (1.2-3.4); Mean Corpuscular Hgb Conc 31.8 g/dL (32-36); Mean Corpuscular Volume 98.8 fL (80-100); Mean Platelet Volume 10.1 fL (7.4-10.4); Monocytes # (auto) 1.02 K/uL (0.11-0.59); Monocytes % (auto) 5.1 %; Neutrophils # (auto) 15.02 K/uL (1.4-6.5); Neutrophils % (auto) 74.8 %; Platelet Count 327 K/uL (130-400); RDW Coefficient of Variation 14.1 % (11.5-14.5); RDW Standard Deviation 50.2 fL (36.4-46.3); Red Blood Count 4.23 M/uL (4.2-5.4)
[2018-08-19 11:16] LABS: Amorphous Sediment Urine Present (None Prsent)
[2018-08-19 11:16] LABS: INR 1.2 (0.9-1.1); Partial Thromboplastin Ratio 0.9; Prothrombin Time 11.8 Seconds (9.0-12.0)
[2018-08-19 11:17] LABS: Calcium Oxalate Crystals Urine Present (None Prsent)
[2018-08-19 11:21] LABS: Base Excess VBG -1.1 mEq/L; Oxygen Saturation VBG 83.8 %; pH VBG 7.41 (7.36-7.41)
[2018-08-19 11:31] LABS: Alanine Aminotransferase 49 U/L (12-78); Albumin Globulin Ratio 1.1 (0.9-2); Albumin Level 3.7 gm/dl (3.4-5.0); Alkaline Phosphatase 79 U/L (45-117); Aspartate Aminotransferase 81 U/L (15-37); BUN Creatinine Ratio 16.5 (10-20); Bilirubin,Total 0.7 mg/dl (0.2-1); Blood Urea Nitrogen 93 mg/dl (7-18); C Reactive Protein < 0.29 mg/dl (0-0.29); Calcium 9.5 mg/dl (8.5-10.1); Carbon Dioxide 24 mmol/L (21-32); Chloride 110 mmol/L (98-107); Creatinine Clr Calc Pharmacy 11.1 ml/min; Est GFR (African American) 8.6; Est GFR (Non-African American) 7.4; Globulin 3.4 gm/dl (2.5-4.0); Glucose 129 mg/dl (70-99); Magnesium 2.5 mg/dl (1.8-2.4); Sodium 141 mmol/L (136-145); Total Protein 7.1 gm/dl (6.4-8.2); Troponin I 0.479 ng/ml (0-0.045)
--- NOTE | 2018-08-19 11:45 | CT Scan Report ---
CT OF THE HEAD WITHOUT CONTRAST CLINICAL HISTORY: Altered mental status. COMPARISON STUDY: No previous studies for comparison. CT DOSE: 638.56 mGycm TECHNIQUE: Helical axial images of the head were obtained without IV contrast. Automated exposure con trol was utilized for the study. A dose lowering technique was utilized adhering to the principles o f ALARA. FINDINGS: No acute intracranial hemorrhage, midline shift or mass effect is present. Ventricular syst em is normal. Basilar cisterns are patent. There are no extra-axial collections. Rabago-white different iation is maintained. There are no findings to suggest acute dural sinus thrombosis or acute territor ial infarct. There are no significant calvarial abnormalities. Visualized portions of the sinuses and mastoid air cells are clear. IMPRESSION: No acute intracranial findings. Electronically signed by: Bradford Hanley M.D. 08/19/2018 11:44 AM
--- NOTE | 2018-08-19 11:48 | CT Scan Report ---
ABDOMEN AND PELVIS CT WITHOUT CONTRAST CT DOSE: 1045.41 mGycm HISTORY: Acute renal failure renal issues, new onset TECHNIQUE: Multiaxial CT images of the abdomen and pelvis were performed without contrast. A dose lo wering technique was utilized adhering to the principles of ALARA. COMPARISON STUDY: None. FINDINGS: Mild dependent subsegmental bibasilar atelectasis. Mildly limited study secondary to positioning of t he patient's upper extremities and lack of IV contrast. Imaged inferior cardiac chambers are mildly e nlarged. Prior cholecystectomy. Mild dilation of the common bile duct, likely on a postsurgical basis. The une nhanced liver, spleen, pancreas and adrenal glands are unremarkable. Mild nonspecific bilateral perin ephric stranding. No renal calculi or obstructive uropathy. Decompressed urinary bladder lumen with F oley catheter in place. Air within the bladder lumen is likely secondary to instrumentation. Prior hy sterectomy. No adnexal mass lesions. No abdominal aortic aneurysm. No adenopathy. Eccentric air noted about the proximal third portion of the duodenum on image 198 series 3 may reflec t underlying duodenal diverticulum. No small bowel obstruction. Air-fluid levels are noted throughout the colon, notably within the rectum and sigmoid. Mild gaseous distention about the transverse colon . Prior appendectomy. No ascites or mesenteric inflammatory changes. Soft tissues are within normal l imits. Bones appear to be intact. Multilevel facet arthrosis with spondylitic spurring intervertebral disc space narrowing. IMPRESSION: 1. No renal calculi or hydronephrosis. 2. Air-fluid levels throughout the colon may reflect diarrheal illness. No bowel obstruction. 3. Prior cholecystectomy and hysterectomy. 4. Additional findings as above. Electronically signed by: George Dumont M.D. 08/19/2018 11:47 AM
--- NOTE | 2018-08-19 12:28 | History & Physical Report ---
Date of Service August 19, 2018 Assessment & Plan (1) Acute renal failure: Patient patient presents with acute renal failure from the [facility] inpatient psychiatric facility. Apparently the patient was on Lasix and lisinopril as well as metformin and lithium over the last few days she is escalating renal dysfunction as her creatinine on presentation to the medical was 1.4. her lithium level is not toxic CT scan comments on a possible colitis pending C. difficile and stool cultures. But the patient cannot provide any information whether she had a diarrheal illness. She will be hydrated with Browne catheter to evaluate urine output and a renal consult be undertaken. Patient does have stable potassium and bicarbonate at this time (2) Elevated troponin: Patient is elevated troponin on presentation and abnormal EKG with inferior Q waves. We will trend her troponin, start baby aspirin given her renal dysfunction and atorvastatin 40. She will not be formally anticoagulated but will use DVT prevention heparin dosing (3) Diabetes: Reportedly the patient is on Januvia and metformin as an outpatient these are coarse held at this time and will use 20 scale insulin with a carb ratio (4) Hypertension: Patient typically is treated for hypertension with lisinopril this is held at this time will evaluate treatment (5) Severe depression: Notify Lamictal trazodone and Psych consult if need be reportedly she was febrile the repeat might be some concern for serotonin syndrome although her leukocytosis is concern for infectious etiology and given the fact is 20,000 we will pursue C. difficile testing (6) Fever: Given her marked leukocytosis and concern for colitis and CT scan will do infectious etiologies for bowel pathogens specifically C. difficile colitis. At this time she started on Zosyn therapy this will be maintained and will have urine culture. Is no pneumonia blood cultures were also obtained we will check a sed rate to evaluate if this is nephritis however her urine sediment is benign and discussed against that (7) DVT prophylaxis: Heparin will be used History of Present Illness Primary Care Provider: NO PCP This patient presents from the [facility] with reportedly fevers at the [facility], severe acute renal failure, abnormal EKG elevated troponin and altered mental state Patient from [facility] we have very little records on the patient. Reportedly she has a history of diabetes heart disease hypertension dyslipidemia and severe recurrent major depression. While at the [facility] continuing her home medications including diuretics of Lasix and lisinopril metformin and lithium. Her renal function went from a creatinine 1.4 on presentation to now in the 5 range with a BUN 93. Patient cannot provide much history she did have stool incontinence during my evaluation and there is concern on the CT scan of her abdomen for colitis. There is no obstructive uropathy noted. Her white blood cell count is 20,000 he has no pneumonia or other focal signs of infection Perhaps she has C. difficile colitis precipitating dehydration which was urged on by her typical medications she will be admitted aggressively hydrated. The confounding variable is mild elevation of her troponin and abnormal EKG although not a consistent with acute cardiac syndrome Family history is unobtainable the patient's altered mental state Allergies Allergy/AdvReac Type Severity Reaction Status Date / Time aspirin Allergy Unknown Unverified 08/19/18 10:50 codeine Allergy Unknown Unverified 08/19/18 10:50 diazepam Allergy Unknown Unverified 08/19/18 10:50 fluoxetine Allergy Unknown Unverified 08/19/18 10:50 paroxetine Allergy Unknown Unverified 08/19/18 10:50 pseudoephedrine Allergy Unknown Unverified 08/19/18 10:50 tramadol Allergy Unknown Unverified 08/19/18 10:50 Home Medications Home Medications Medication Instructions Recorded Confirmed Type acetaminophen 325 mg PO Q4H PRN 08/19/18 08/19/18 History alum-mag hydroxide-simeth [Mag-Al 30 ml PO QID PRN 08/19/18 08/19/18 History Plus] aripiprazole 15 mg PO DAILY 08/19/18 08/19/18 History atorvastatin 40 mg PO HS 08/19/18 08/19/18 History lamotrigine 50 mg PO BID 08/19/18 08/19/18 History lorazepam 0.5 mg PO TID PRN 08/19/18 08/19/18 History magnesium hydroxide [Milk of 30 ml PO DAILY PRN 08/19/18 08/19/18 History Magnesia] montelukast 10 mg PO PM 08/19/18 08/19/18 History omeprazole 20 mg PO DAILY 08/19/18 08/19/18 History trazodone 100 mg PO DAILY 08/19/18 08/19/18 History Past Med/Surg History Medical History Diabetes H/O: hysterectomy HLD (hyperlipidemia) HTN (hypertension) Major depressive disorder Surgical History History of appendectomy History of cholecystectomy Status post creation of urethral sling by suprapubic approach Social History Current Living Situation: Other Current Living Situation Comment: [place] Feels Safe at Home: Yes Smoking Status: Never smoker Review of Systems Unobtainable due to mental health condition Physical Exam 2 Vital Signs (Past 24 Hours): Last Vital Signs Temp 37 C 08/19/18 10:09 Pulse 114 H 08/19/18 12:03 Resp 24 08/19/18 12:03 BP 114/65 08/19/18 12:03 Pulse Ox 92 08/19/18 12:03 The patient appeared ill she is tremulous shaky and appears agitated Vital signs as documented. No documented fever here with us Head exam is unremarkable. She is edentulous she has a coating on her tongue Neck is without jugular venous distension, thyromegaly, or lymphademopathy Lungs are clear to auscultation and percussion. Cardiac exam reveals Rhythm is regular tachycardia with a systolic murmur Abdominal exam reveals hyperactive bowel sounds, no masses, no organomegaly no focal signs of tenderness or guarding Extremities are nonedematous and both pedal pulses are normal. Neurologic exam is awake she knows she is in the hospital no focal deficits, strength is equal bilateral he is tremulous and agitated Skin is warm Dry without bruises or lesions Results & Data Diagnostic Findings CT scan abdomen pelvis 1. No renal calculi or hydronephrosis. 2. Air-fluid levels throughout the colon may reflect diarrheal illness. No bowel obstruction. 3. Prior cholecystectomy and hysterectomy. CT scan head is unremarkable Chest x-ray shows no pneumonia mild cardiomegaly EKG Inferior infarct , Q waves throughout 3 aVF with poor R wave progression across the precordial leads T wave abnormality, lateral T wave inversion in V4 5 and 6 with flattening
[2018-08-19] MEDS ORDERED: PIPERACILLIN/TAZOBACTAM 3.375 GM/115 ML BAG IV SCH (14:00)
[2018-08-19] MEDS ORDERED: NITROGLYCERIN SL 0.4 MG/TAB TAB SL PRN (15:00)
[2018-08-19] MEDS ORDERED: DEXTROSE 50% 50 ML SYRINGE IV PRN (15:00)
[2018-08-19] MEDS ORDERED: GLUCOSE 10 TABS/TUBE PO PRN (15:00)
[2018-08-19] MEDS ORDERED: ACETAMINOPHEN 325 MG TAB PO PRN (15:00)
[2018-08-19] MEDS ORDERED: CARBOHYDRATES FOR HYPOGLYCEMIA PO PRN (15:00)
[2018-08-19] MEDS ORDERED: GLUCOSE 40% GEL 15 GM TUBE PO PRN (15:00)
[2018-08-19] MEDS ORDERED: GLUCAGON FOR INJ 1 MG VIAL SQ PRN (15:00)
[2018-08-19] MEDS ORDERED: PHARMACY GLYCEMIC MGMT CONSULT PRN (15:30)
[2018-08-19] MEDS: SODIUM CHLORIDE 0.9% 1000ML 1,000 ML IV SCH ×2 (15:30→23:30)
[2018-08-19] MEDS: INSULIN ASPART 100 UNITS/ML 3 ML PEN SC SCH ×2 (17:12→21:34)
--- NOTE | 2018-08-19 17:40 | Nephrology Consultation ---
Date of Consultation August 19, 2018 Assessment & Plan (1) Acute renal failure: GREGORY due to dehydration and febrile illness. Clinical presentation concerning for acute colitis. Patient w/ history of recurrent major depression , AODM and hyperlipidemia -- Agree w/ stopping Lakemoor & Metformin -- [place] level reviewed and not elevated at this time -- Patient appears clinically volume contracted. Start IV hydration w/ 0.9NS -- Urinalysis is without protein or blood. Will order FeNa and renal US -- Electrolyte balance is acceptable. No acute indication for HD at this time -- Monitor serial PRP -- Await results of blood cultures and C. Difficile toxin assay -- Will order CPK level. Consider holding Statin History of Present Illness Reason for Consultation: Acute kidney injury Attending Physician: Joaquin Hines MD History of Present Illness Miss Silverman is a 63 year old white female who is seen at the request of Dr. Hnies for evaluation of GREGORY. Only limited medical records are available from the [facility]. These have been reviewed today and are summarized as follows: Miss Silverman suffers from major depression, AODM, HTN , ASCVD. She has been a resident at the [facility]. Her medical regimen has included Lakemoor and Metformin. Laboratory studies dated show Cr 1.4. Today Miss Silverman was found to be febrile and lethargic. She was transported to [facility] ED. Evaluation has revealed WBC 20K, Na 145, BUN 93, Cr 5.6 and [place]oor level 1.2. Abdominal CT was performed without contrast. No hydronephrosis reported. Air fluid levels were present throughout the colon suggestive of diarrheal illness. There was no bowel obstruction. Miss Silverman is currently awake and alert. She does not appear to be in distress. She is oriented to self but not place or time. She will follow simple one step commands. Miss Silverman denies dyspnea or abdominal pain. Allergies Allergy/AdvReac Type Severity Reaction Status Date / Time aspirin Allergy Unknown Unverified 08/19/18 10:50 codeine Allergy Unknown Unverified 08/19/18 10:50 diazepam Allergy Unknown Unverified 08/19/18 10:50 fluoxetine Allergy Unknown Unverified 08/19/18 10:50 paroxetine Allergy Unknown Unverified 08/19/18 10:50 pseudoephedrine Allergy Unknown Unverified 08/19/18 10:50 tramadol Allergy Unknown Unverified 08/19/18 10:50 Home Medications Home Medications Medication Instructions Recorded Confirmed Type acetaminophen 325 mg PO Q4H PRN 08/19/18 08/19/18 History alum-mag hydroxide-simeth [Mag-Al 30 ml PO QID PRN 08/19/18 08/19/18 History Plus] aripiprazole 15 mg PO DAILY 08/19/18 08/19/18 History atorvastatin 40 mg PO HS 08/19/18 08/19/18 History lamotrigine 50 mg PO BID 08/19/18 08/19/18 History lorazepam 0.5 mg PO TID PRN 08/19/18 08/19/18 History magnesium hydroxide [Milk of 30 ml PO DAILY PRN 08/19/18 08/19/18 History Magnesia] montelukast 10 mg PO PM 08/19/18 08/19/18 History omeprazole 20 mg PO DAILY 08/19/18 08/19/18 History trazodone 100 mg PO DAILY 08/19/18 08/19/18 History Patient History Medical History Diabetes H/O: hysterectomy HLD (hyperlipidemia) HTN (hypertension) Major depressive disorder Surgical History History of appendectomy History of cholecystectomy Status post creation of urethral sling by suprapubic approach Social History Current Living Situation: Other Current Living Situation Comment: resides at [place] Other Information That Helps Us Care for You: No Feels Safe at Home: Yes Safety Concerns: Feels Safe At This Time Smoking Status: Never smoker Do You Dip or Chew Tobacco: No Second Hand Exposure: No Tobacco Cessation Education Requested by Patient: No Hx Alcohol Use: No Hx Substance Use: No Beliefs That Will Affect Care: None Preferred Language: Urdu Communication Ability: Effective Information Support Project Manager Required: No Review of Systems Constitutional: + fever and + malaise Respiratory: no dyspnea Cardiovascular: no chest pain Gastrointestinal: no abdominal pain Physical Exam 2 Vital Signs (Past 24 Hours): Last Vital Signs Temp 36.8 C 08/19/18 15:57 Pulse 94 H 08/19/18 15:57 Resp 18 08/19/18 15:57 BP 132/69 08/19/18 15:57 Pulse Ox 95 08/19/18 15:57 Constitutional: appears chronically ill Eyes: PERRL, conjunctivae normal, anicteric sclerae ENMT: Mouth: + edentulous (dry mucous membranes) Neck: trachea midline, no thyromegaly Respiratory: normal respiratory effort, lungs clear to auscultation Cardiovascular: RRR, no murmur, no edema Gastrointestinal (Abdomen): Inspection/Auscultation: normal bowel sounds Percussion/Palpation: abdomen soft; abdomen nontender and no guarding Results & Data Laboratory Results Laboratory Tests 08/19/18 08/19/18 08/19/18 10:40 10:40 10:40 WBC 20.10 H Hgb 13.3 Hct 41.8 Plt Count 327 VBG pH VBG pCO2 VBG pO2 VBG HCO3 POC Sodium POC Potassium POC Chloride POC Total CO2 BUN 93 H Creatinine 5.66 H* Glucose 129 H Lactate 1.6 Calcium 9.5 Magnesium 2.5 H AST 81 H ALT 49 Troponin I 0.479 H* Albumin 3.7 Urine Color Urine Appearance Urine pH Ur Specific [place] Urine Protein Urine Glucose (UA) Urine Blood Urine Nitrite Ur Leukocyte Esterase Urine RBC (Auto) U Hyaline Cast (Auto) Urine Bacteria (Auto) Calcium Oxalate Crystal Amorphous Sediment Lakemoor 08/19/18 08/19/18 08/19/18 10:40 10:45 10:49 WBC Hgb Hct Plt Count VBG pH VBG pCO2 VBG pO2 VBG HCO3 POC Sodium 145 H POC Potassium 4.1 POC Chloride 108 POC Total CO2 22 L BUN Creatinine Glucose Lactate Calcium Magnesium AST ALT Troponin I Albumin Urine Color Dark Yellow Urine Appearance Cloudy H Urine pH 5.0 Ur Specific [place] 1.025 Urine Protein Negative Urine Glucose (UA) Negative Urine Blood Negative Urine Nitrite Negative Ur Leukocyte Esterase Negative Urine RBC (Auto) 0-4 U Hyaline Cast (Auto) 5-10 H Urine Bacteria (Auto) Negative Calcium Oxalate Crystal Present H Amorphous Sediment Present H [place]oor 1.2 08/19/18 11:04 WBC Hgb Hct Plt Count VBG pH 7.41 VBG pCO2 37 L VBG pO2 50 VBG HCO3 23 POC Sodium POC Potassium POC Chloride POC Total CO2 BUN Creatinine Glucose Lactate Calcium Magnesium AST ALT Troponin I Albumin Urine Color Urine Appearance Urine pH Ur Specific [place] Urine Protein Urine Glucose (UA) Urine Blood Urine Nitrite Ur Leukocyte Esterase Urine RBC (Auto) U Hyaline Cast (Auto) Urine Bacteria (Auto) Calcium Oxalate Crystal Amorphous Sediment Lakemoor 08/19/[address]: 1. No renal calculi or hydronephrosis. 2. Air-fluid levels throughout the colon may reflect diarrheal illness. No bowel obstruction. 3. Prior cholecystectomy and hysterectomy. 4. Additional findings as above. _ (1) Acute renal failure Acute renal failure type: unspecified Qualified Code(s): N17.9 - Acute kidney failure, unspecified
[2018-08-19 18:29] LABS: Appearance Urine Cloudy (Clear); Bacteria Urine Automated Negative (Negative); Bilirubin Urine Negative (Negative); Color Urine Yellow; Epithelial Cell Urine Auto >30 /lpf (0-5); Glucose Urine UA Negative (Negative); Ketones Urine Trace (Negative); Leukocyte Esterase Urine 2+ (Negative); Nitrite Urine Negative (Negative); Protein Urine 1+ (Negative); Urobilinogen Urine Negative (Negative); WBC Urine Automated >30 /hpf (0-5)
[2018-08-19 19:00] LABS: Mucus Urine Present (None Prsent); Renal Epithelial Cells Urine 0-5 /lpf (0-5)
[2018-08-19 19:16] LABS: Total Protein Urine Random 76.4 mg/dl (0-11.9)
[2018-08-19 19:19] LABS: Troponin I 0.348 ng/ml (0-0.045)
[2018-08-19] MEDS: PIPERACILLIN/TAZOBACTAM 3.375 GM in DEXTROSE 5% 100 ML IV SCH (19:47)
[2018-08-19] MEDS: HEPARIN SOD 5,000 UNIT/0.5 ML VIAL SQ SCH (21:31)
[2018-08-19] MEDS: ATORVASTATIN 40 MG TAB PO SCH (21:32)
[2018-08-19] MEDS: lamoTRIgine 25 MG TAB PO SCH (21:33)
[2018-08-20] MEDS: SODIUM CHLORIDE 0.9% 1000ML 1,000 ML IV SCH ×3 (06:00→23:00)
[2018-08-20] MEDS: PIPERACILLIN/TAZOBACTAM 3.375 GM in DEXTROSE 5% 100 ML IV SCH (06:00)
[2018-08-20] MEDS: INSULIN ASPART 100 UNITS/ML 3 ML PEN SC SCH ×4 (07:40→20:10)
[2018-08-20 08:02] LABS: BUN Creatinine Ratio 24.7 (10-20); Calcium 8.4 mg/dl (8.5-10.1); Est GFR (Non-African American) 19.8; Potassium 3.5 mmol/L (3.5-5.1)
[2018-08-20 08:11] LABS: Hematocrit (blood only) 32.4 % (37-47); Hemoglobin 10.2 g/dL (12.0-16.0); Mean Corpuscular Hgb Conc 31.5 g/dL (32-36); Mean Corpuscular Volume 97.9 fL (80-100); Mean Platelet Volume 9.9 fL (7.4-10.4); Platelet Count 191 K/uL (130-400); RDW Coefficient of Variation 13.5 % (11.5-14.5); RDW Standard Deviation 48.4 fL (36.4-46.3); Red Blood Count 3.31 M/uL (4.2-5.4); White Blood Count 11.02 K/uL (4.8-10.8)
[2018-08-20] MEDS: lamoTRIgine 25 MG TAB PO SCH ×2 (08:30→20:06)
[2018-08-20] MEDS: TRAZODONE HCL 100 MG TAB PO SCH (08:30)
[2018-08-20] MEDS: PANTOprazole 40 MG TAB PO SCH (08:30)
[2018-08-20] MEDS: ARIPiprazole 15 MG TAB PO SCH (08:30)
[2018-08-20] MEDS: ACETAMINOPHEN 325 MG TAB PO PRN (08:30)
[2018-08-20] MEDS: ASPIRIN 81 MG ECTAB PO SCH (08:30)
[2018-08-20 08:56] LABS: Estimated Average Glucose 108 mg/dl
--- NOTE | 2018-08-20 09:56 | Family Medicine Progress Note ---
Date of Service August 20, 2018 Assessment & Plan (1) Severe depression: (2) Hypertension: (3) Diabetes: (4) Elevated troponin: (5) Acute renal failure: 63yoF with hx of HTN, HLD, DM and severe recurrent major depression presented from the [facility] on 08/19 with diarrhea and altered mental status. She was found to have severe acute renal failure likely secondary to dehydration. Her troponin also uptrended and she had some EKG changes (unsure if old vs. new given lack of history/medical records) but has now downtrended and likely due to supply demand mismatch. Pt had been taking her home lasix, metformin, lisinopril and lithium. AMS likely secondary to significant dehydration - improving -Head CT no acute abnormalities -Neuro checks ARF likely secondary to dehydration/pre-renal in the setting of diarrhea -BUN/Cr initially 93/5.6 -> 62/2.5 -FeNA 0.7% -Abdominal CT: no renal calculi/hydronephrosis -No electrolyte abnormalities -Received 3L NC + maintainance NS at 125mls/hr -Hold home metformin and lisinopril -Nephrology consulted: likely pre-renal continue rehydration -monitor BMP ?fever, and diarrhea likely viral vs. bacterial -no fever noted on EMR but pt was initially tachycardic -CT abdomen: concerning for colitis, no obstruction -C. diff ordered -WBC initially 20 but likely hemoconcentrated and improved to 11 secondary to rehydration -Blood cultures pending -Received zosyn empiric coverage - discontinued as unlikely to be bacterial given significantly improved WBC, and normal inflammatory markers Elevated troponin - asymptomatic -Troponin 0.47->0.34->0.159 -EKG initially concerning for Q waves in inferior leads, and lateral Twave inversion; repeat: subtle V1, V2 st elevation and inverted T waves in II (no previous comparison EKG in previous or [place] [facility] ) CXR mild cardiomegaly -ECHO: no wall motion abnl, EF 60-65%, grade 1 diastolic dysfunction -started on aspirin and atorvastatin 40mg daily -recommend outpt stress test DM -was on januvia and metformin at home -On SSI here -continue to monitor Severe depression/mood disorder: -Continued home trazodone, lamictal and abilify -holding lithium in the setting of ARF FEN/GI: protonix 40mg daily, low potassium diet, monitor and replete electrolytes as needed DVT prophylaxis: heparin Code: Full Dispo: pending clinical improvement (6) DVT prophylaxis: (7) Colitis: Supervising Physician Co-Signing Physician Notes I personally examined the patient and verified all alvarado points of history and exam, discussed case, and agree with decision making with Dr Fenton. Still having diarrhea, not much meaningful HPI or review of systems. Children at the bedside, updated Vitals noted, in general she is awake but does not interact much she does make eye contact she does not appear in distress although she does appear fatigued. Abdomen is soft nondistended nontender. Dehydration/acute renal failureappears to relate to the diarrhea. Continue hydration, continue to follow Diarrheaseems to be viral versus med related far more likely than any other etiologies. Given that she is clearly improved and is stable, we will hold Zosyn and follow her closely, C. difficile has still been not able to be collected due to liquid stool and incontinence. DVT prophylaxisheparin subcu Subjective This AM pt was somewhat drowsy and not completely alert. Was not sure how long she has been having diarrhea but when asked to approximate she responded about a week. Has had a small episode since being in the hospital but reports passing a lot of gas. Denies any hx of kidney disease, shakes head yes to hx of diabetes , HLD, depression and anxiety. Shakes head no to HTN. Denies any SALGUERO/dizziness, f/c, cp, sob, abdominal pain, n/v, dysuria. Physical Exam 2 Vital Signs (Past 24 Hours): Last Vital Signs Temp 36.7 C 08/20/18 07:43 Pulse 86 08/20/18 07:43 Resp 18 08/20/18 07:43 BP 148/73 H 08/20/18 07:43 Pulse Ox 98 08/20/18 07:43 Physical Exam: General: In NAD, somewhat drowsy this AM CV: RRR, no m/r/g Pulm: CTAB, equal breath sounds bilaterally Abdomen: hyperactive but not high pitched bowel sounds, lower abdominal mild TTP , non-distended LE: No LE edema, no calf tenderness to palpation Results & Data Laboratory Results Abnormal lab results 08/19/18 08/19/18 08/19/18 Range/Units 10:40 10:40 10:40 WBC 20.10 H (4.8-10.8) K/uL RBC (4.2-5.4) M/uL Hgb (12.0-16.0) g/dL Hct (37-47) % MCHC 31.8 L (32-36) g/dL RDW Std Deviation 50.2 H (36.4-46.3) fL Immature Gran # (Auto) 0.07 H (0.00-0.02) K/uL Neut # (Auto) 15.02 H (1.4-6.5) K/uL Lymph # (Auto) 3.81 H (1.2-3.4) K/uL Alcorn # (Auto) 1.02 H (0.11-0.59) K/uL INR 1.2 H (0.9-1.1) VBG pCO2 (38-50) mmHg POC Sodium (135-144) mEq/L Chloride 110 H (98-107) mmol/L Carbon Dioxide (21-32) mmol/L POC Total CO2 (24-31) mEq/l POC BUN (7-18) mg/dl BUN 93 H (7-18) mg/dl Creatinine 5.66 H* (0.6-1.2) mg/dl POC Creatinine (0.6-1.3) mg/dl BUN/Creatinine Ratio (10-20) Glucose 129 H (70-99) mg/dl POC Glucose (70-99) POC Glucose (other) (70-99) mg/dl Calcium (8.5-10.1) mg/dl Magnesium 2.5 H (1.8-2.4) mg/dl AST 81 H (15-37) U/L Total Creatine Kinase (26-192) U/L Troponin I 0.479 H* (0-0.045) ng/ml Urine Appearance (Clear) Urine Protein (Negative) Urine Ketones (Negative) Urine Blood (Negative) Ur Leukocyte Esterase (Negative) Urine WBC (Auto) (0-5) /hpf Urine RBC (Auto) (0-4) /hpf U Hyaline Cast (Auto) (0-5) /lpf U Epithel Cells (Auto) (0-5) /lpf Calcium Oxalate Crystal (None Prsent) Amorphous Sediment (None Prsent) Granular Casts (0) /lpf Urine Mucus (None Prsent) U Random Total Protein (0-11.9) mg/dl Protein/Creatinin Ratio (0-0.2) 08/19/18 08/19/18 08/19/18 Range/Units 10:45 10:49 11:04 WBC (4.8-10.8) K/uL RBC (4.2-5.4) M/uL Hgb (12.0-16.0) g/dL Hct (37-47) % MCHC (32-36) g/dL RDW Std Deviation (36.4-46.3) fL Immature Gran # (Auto) (0.00-0.02) K/uL Neut # (Auto) (1.4-6.5) K/uL Lymph # (Auto) (1.2-3.4) K/uL Alcorn # (Auto) (0.11-0.59) K/uL INR (0.9-1.1) VBG pCO2 37 L (38-50) mmHg POC Sodium 145 H (135-144) mEq/L Chloride (98-107) mmol/L Carbon Dioxide (21-32) mmol/L POC Total CO2 22 L (24-31) mEq/l POC BUN 93 H (7-18) mg/dl BUN (7-18) mg/dl Creatinine (0.6-1.2) mg/dl POC Creatinine 5.6 H* (0.6-1.3) mg/dl BUN/Creatinine Ratio (10-20) Glucose (70-99) mg/dl POC Glucose (70-99) POC Glucose (other) 131 H (70-99) mg/dl Calcium (8.5-10.1) mg/dl Magnesium (1.8-2.4) mg/dl AST (15-37) U/L Total Creatine Kinase (26-192) U/L Troponin I (0-0.045) ng/ml Urine Appearance Cloudy H (Clear) Urine Protein (Negative) Urine Ketones Trace H (Negative) Urine Blood (Negative) Ur Leukocyte Esterase (Negative) Urine WBC (Auto) (0-5) /hpf Urine RBC (Auto) (0-4) /hpf U Hyaline Cast (Auto) 5-10 H (0-5) /lpf U Epithel Cells (Auto) >30 H (0-5) /lpf Calcium Oxalate Crystal Present H (None Prsent) Amorphous Sediment Present H (None Prsent) Granular Casts (0) /lpf Urine Mucus (None Prsent) U Random Total Protein (0-11.9) mg/dl Protein/Creatinin Ratio (0-0.2) 08/19/18 08/19/18 08/19/18 Range/Units 16:27 17:35 17:35 WBC (4.8-10.8) K/uL RBC (4.2-5.4) M/uL Hgb (12.0-16.0) g/dL Hct (37-47) % MCHC (32-36) g/dL RDW Std Deviation (36.4-46.3) fL Immature Gran # (Auto) (0.00-0.02) K/uL Neut # (Auto) (1.4-6.5) K/uL Lymph # (Auto) (1.2-3.4) K/uL Alcorn # (Auto) (0.11-0.59) K/uL INR (0.9-1.1) VBG pCO2 (38-50) mmHg POC Sodium (135-144) mEq/L Chloride (98-107) mmol/L Carbon Dioxide (21-32) mmol/L POC Total CO2 (24-31) mEq/l POC BUN (7-18) mg/dl BUN (7-18) mg/dl Creatinine (0.6-1.2) mg/dl POC Creatinine (0.6-1.3) mg/dl BUN/Creatinine Ratio (10-20) Glucose (70-99) mg/dl POC Glucose 121 H (70-99) POC Glucose (other) (70-99) mg/dl Calcium (8.5-10.1) mg/dl Magnesium (1.8-2.4) mg/dl AST (15-37) U/L Total Creatine Kinase (26-192) U/L Troponin I (0-0.045) ng/ml Urine Appearance Cloudy H (Clear) Urine Protein 1+ H (Negative) Urine Ketones Trace H (Negative) Urine Blood 3+ H (Negative) Ur Leukocyte Esterase 2+ H (Negative) Urine WBC (Auto) >30 H (0-5) /hpf Urine RBC (Auto) 10-30 H (0-4) /hpf U Hyaline Cast (Auto) 5-10 H (0-5) /lpf U Epithel Cells (Auto) >30 H (0-5) /lpf Calcium Oxalate Crystal (None Prsent) Amorphous Sediment (None Prsent) Granular Casts 1-5 H (0) /lpf Urine Mucus Present H (None Prsent) U Random Total Protein 76.4 H (0-11.9) mg/dl Protein/Creatinin Ratio 0.6 H (0-0.2) 08/19/18 08/19/18 08/20/18 Range/Units 18:30 20:11 06:52 WBC 11.02 H (4.8-10.8) K/uL RBC 3.31 L (4.2-5.4) M/uL Hgb 10.2 L D (12.0-16.0) g/dL Hct 32.4 L (37-47) % MCHC 31.5 L (32-36) g/dL RDW Std Deviation 48.4 H (36.4-46.3) fL Immature Gran # (Auto) (0.00-0.02) K/uL Neut # (Auto) (1.4-6.5) K/uL Lymph # (Auto) (1.2-3.4) K/uL Alcorn # (Auto) (0.11-0.59) K/uL INR (0.9-1.1) VBG pCO2 (38-50) mmHg POC Sodium (135-144) mEq/L Chloride (98-107) mmol/L Carbon Dioxide (21-32) mmol/L POC Total CO2 (24-31) mEq/l POC BUN (7-18) mg/dl BUN (7-18) mg/dl Creatinine (0.6-1.2) mg/dl POC Creatinine (0.6-1.3) mg/dl BUN/Creatinine Ratio (10-20) Glucose (70-99) mg/dl POC Glucose 100 H (70-99) POC Glucose (other) (70-99) mg/dl Calcium (8.5-10.1) mg/dl Magnesium (1.8-2.4) mg/dl AST (15-37) U/L Total Creatine Kinase 1883 H (26-192) U/L Troponin I 0.348 H* (0-0.045) ng/ml Urine Appearance (Clear) Urine Protein (Negative) Urine Ketones (Negative) Urine Blood (Negative) Ur Leukocyte Esterase (Negative) Urine WBC (Auto) (0-5) /hpf Urine RBC (Auto) (0-4) /hpf U Hyaline Cast (Auto) (0-5) /lpf U Epithel Cells (Auto) (0-5) /lpf Calcium Oxalate Crystal (None Prsent) Amorphous Sediment (None Prsent) Granular Casts (0) /lpf Urine Mucus (None Prsent) U Random Total Protein (0-11.9) mg/dl Protein/Creatinin Ratio (0-0.2) 08/20/18 08/20/18 08/20/18 Range/Units 06:52 06:52 07:30 WBC (4.8-10.8) K/uL RBC (4.2-5.4) M/uL Hgb (12.0-16.0) g/dL Hct (37-47) % MCHC (32-36) g/dL RDW Std Deviation (36.4-46.3) fL Immature Gran # (Auto) (0.00-0.02) K/uL Neut # (Auto) (1.4-6.5) K/uL Lymph # (Auto) (1.2-3.4) K/uL Alcorn # (Auto) (0.11-0.59) K/uL INR (0.9-1.1) VBG pCO2 (38-50) mmHg POC Sodium (135-144) mEq/L Chloride 115 H (98-107) mmol/L Carbon Dioxide 20 L (21-32) mmol/L POC Total CO2 (24-31) mEq/l POC BUN (7-18) mg/dl BUN 62 H (7-18) mg/dl Creatinine 2.51 H D (0.6-1.2) mg/dl POC Creatinine (0.6-1.3) mg/dl BUN/Creatinine Ratio 24.7 H (10-20) Glucose (70-99) mg/dl POC Glucose 104 H (70-99) POC Glucose (other) (70-99) mg/dl Calcium 8.4 L (8.5-10.1) mg/dl Magnesium (1.8-2.4) mg/dl AST (15-37) U/L Total Creatine Kinase (26-192) U/L Troponin I 0.159 H* (0-0.045) ng/ml Urine Appearance (Clear) Urine Protein (Negative) Urine Ketones (Negative) Urine Blood (Negative) Ur Leukocyte Esterase (Negative) Urine WBC (Auto) (0-5) /hpf Urine RBC (Auto) (0-4) /hpf U Hyaline Cast (Auto) (0-5) /lpf U Epithel Cells (Auto) (0-5) /lpf Calcium Oxalate Crystal (None Prsent) Amorphous Sediment (None Prsent) Granular Casts (0) /lpf Urine Mucus (None Prsent) U Random Total Protein (0-11.9) mg/dl Protein/Creatinin Ratio (0-0.2) Medications Administered Current Inpatient Medications Acetaminophen (Tylenol) 650 mg PO Q4H PRN PRN Reason: Pain or Fever Stop: 09/18/18 14:59 Last Admin: 08/20/18 08:30 Dose: 650 mg Aripiprazole (Abilify) 15 mg PO DAILY [facility] Stop: 09/19/18 08:59 Last Admin: 08/20/18 08:30 Dose: 15 mg Aspirin (Ecotrin Ectab) 81 mg PO QAM [facility] Stop: 09/19/18 08:59 Last Admin: 08/20/18 08:30 Dose: 81 mg Atorvastatin Calcium (Lipitor) 40 mg PO HS [facility] Stop: 09/18/18 20:59 Last Admin: 08/19/18 21:32 Dose: 40 mg Dextrose (Dextrose 50%) 25 - 50 ml IV UD PRN; Protocol PRN Reason: Hypoglycemia Protocol Stop: 09/18/18 14:59 Glucagon (Glucagen) 1 mg SQ UD PRN; Protocol PRN Reason: Hypoglycemia Protocol Stop: 09/18/18 14:59 Glucose (Glucose 40%) 15 - 30 gm PO UD PRN; Protocol PRN Reason: Hypoglycemia Protocol Stop: 09/18/18 14:59 Glucose (Dex4 Glucose) 4 - 8 tabs PO UD PRN; Protocol PRN Reason: Hypoglycemia Protocol Stop: 09/18/18 14:59 Heparin Sodium (Porcine) (Heparin Sodium (Porcine)) 5,000 units SQ Q12 [facility] Stop: 09/18/18 20:59 Last Admin: 08/20/18 09:59 Dose: 5,000 units Piperacillin Sod/Tazobactam (Sod 3.375 gm/ Dextrose) 115 mls @ 28.75 mls/hr IV Q12H [facility]; Protocol Stop: 08/21/18 18:59 Last Infusion: 08/20/18 10:02 Dose: Infused Sodium Chloride (Nss 1000ml) 1,000 mls @ 125 mls/hr IV .Q8H [facility] Stop: 09/18/18 15:14 Last Admin: 08/20/18 06:00 Dose: 125 mls/hr Insulin Aspart (Novolog Flexpen) 0 units SC ACHS [facility]; Protocol Stop: 09/18/18 16:29 Last Admin: 08/20/18 07:40 Dose: Not Given Lamotrigine (Lamictal) 50 mg PO BID [facility] Stop: 09/18/18 20:59 Last Admin: 08/20/18 08:30 Dose: 50 mg Lorazepam (Ativan) 0.5 mg PO TID PRN PRN Reason: Anxiety Stop: 09/18/18 14:59 Miscellaneous (Carbohydrates For Hypoglycemia) 15 - 30 gm PO UD PRN PRN Reason: Hypoglycemia Treatment Stop: 09/18/18 14:59 Miscellaneous Information (Consult) 1 ea N/A UD PRN PRN Reason: Consult Stop: 09/18/18 12:37 Miscellaneous Information (Consult Glycemic Management Pharmacy) 1 ea N/A UD PRN; Protocol PRN Reason: Consult Stop: 09/18/18 15:29 Nitroglycerin (Nitrostat) 0.4 mg SL UD PRN PRN Reason: Chest Pain Stop: 09/18/18 14:59 Pantoprazole Sodium (Protonix) 40 mg PO DAILY [facility] Stop: 09/19/18 08:59 Last Admin: 08/20/18 08:30 Dose: 40 mg Trazodone HCl (Desyrel) 100 mg PO DAILY [facility] Stop: 09/19/18 08:59 Last Admin: 08/20/18 08:30 Dose: 100 mg Resident Activity Tracking Resident Involvement: Resident Care Provided Care Provided: [facility] Medicine _ (1) Acute renal failure Acute renal failure type: unspecified Qualified Code(s): N17.9 - Acute kidney failure, unspecified
[2018-08-20] MEDS: HEPARIN SOD 5,000 UNIT/0.5 ML VIAL SQ SCH ×2 (09:59→20:06)
--- NOTE | 2018-08-20 11:55 | Nephrology Progress Note ---
Date of Service August 20, 2018 Assessment & Plan (1) Acute renal failure: GREGORY due to dehydration and febrile illness. Clinical presentation concerning for acute colitis. Patient w/ history of recurrent major depression , AODM and hyperlipidemia Renal function improve significantly, electrolyte acceptable. Remain non- oliguric. Expect renal function to continue to improve -- okay to continue on IV fluid now however if p.o. intake improved from consider day decrease the IV rate to 75 mL/hour -- Monitor serial PRP Subjective Claudia Seen in room this morning. She denies any symptom it seems lethargic and was easily falling asleep. Blood pressure remained stable. Renal function improve significantly with IV hydration. Electrolyte acceptable. Review of Systems Detail ROS was not possible as patient was sleeping is a volume sleep. Constitutional: + fever and + malaise Physical Exam 2 Vital Signs (Past 24 Hours): Last Vital Signs Temp 36.6 C 08/20/18 11:14 Pulse 60 08/20/18 11:14 Resp 18 08/20/18 11:14 BP 113/69 08/20/18 11:14 Pulse Ox 97 08/20/18 11:14 Physical Exam: GENERAL: sleepy and lethargic, not in any distress. NECK: Supple, no JVD. RESPIRATORY: clear to auscultation bilaterally, no wheezes or rales. CARDIOVASCULAR: S1, S2 normal, rate rhythm regular. EXTREMITY: No lower extremity edema NEURO: speech fluent. PSYCHIATRY: Normal mood and judgment _ (1) Acute renal failure Acute renal failure type: unspecified Qualified Code(s): N17.9 - Acute kidney failure, unspecified
--- NOTE | 2018-08-20 14:26 | Pharmacy Report ---
Glycemic Control Consultation - Date of Service August 20, 2018 - Scope Scope: Glycemic Pharmacist consulted by Dr Hines on 08/19/18 for glycemic control and to write orders per [facility] inpatient glycemic control protocol - Objective Weight: 88.2 kg Accuchecks BSG (last 24hrs): 08/19/18 08/19/18 08/20/18 16:27 20:11 06:52 Glucose 89 POC Glucose 121 H 100 H 08/20/18 08/20/18 07:30 11:17 Glucose POC Glucose 104 H 95 Laboratory Data (last 24hrs): 08/20/18 06:52 Potassium 3.5 Carbon Dioxide 20 L Anion Gap 9.0 Creatinine 2.51 H D Est Cr Clr Drug Dosing 25.0 HbA1c: Hemoglobin A1c 5.4 % (4.5-5.6) 08/20/18 06:52 - Recent Pertinent Medications Outpatient Anti-diabetic Regimen: * metformin and januvia * A1c = 5.4 % 08/20/17 The patient is currently receiving: * Basal insulin: none * Correctional Insulin: Novolog Correction per scale ACHS Goal Range: Low 110 mg/dL - High 140 mg/dL Correction Factor: 25 mg/dL/unit * Prandial insulin: Per carb ratio of 1 unit per 9 grams CHO consumed - Assessment & Plan Assessment & Plan: ASSESSMENT: * 63 yr old female admitted with AMS and GREGORY likely due to dehydration * Fasting BSG is at goal without basal insulin * Post prandial BSGs also at goal - pt has not received any Novolog so far this admission * will loosen carb ratio; pt may not require carb coverage with A1c of 5.4% on oral agents at home PLAN FOR INPATIENT GLYCEMIC CONTROL: * Holding outpatient oral diabetes medications * Basal insulin * none * Bolus insulin - loosen carb ratio * NovoLog per scale ACHS or Q6hrs while NPO * Goal Range: Low 110 mg/dL - High 140 mg/dL * Correction Factor: 25 mg/dL/unit * Nutritional / Prandial insulin per carb ratio of 1 unit per 15 grams CHO consumed Thank you.
[2018-08-20] MEDS ORDERED: PIPERACILLIN/TAZOBACTAM 3.375 GM in DEXTROSE 5% 100 ML IV SCH (15:00)
[2018-08-20] MEDS: ATORVASTATIN 40 MG TAB PO SCH (20:07)
[2018-08-20] MEDS: LORazepam 0.5 MG TAB PO PRN (21:34)
[2018-08-21] MEDS: ACETAMINOPHEN 325 MG TAB PO PRN (05:45)
[2018-08-21 05:54] LABS: Mean Corpuscular Hgb Conc 33.3 g/dL (32-36); Mean Platelet Volume 9.5 fL (7.4-10.4); Platelet Count 180 K/uL (130-400); RDW Standard Deviation 44.6 fL (36.4-46.3); Red Blood Count 3.51 M/uL (4.2-5.4); White Blood Count 8.92 K/uL (4.8-10.8)
[2018-08-21 06:43] LABS: BUN Creatinine Ratio 24.9 (10-20); Blood Urea Nitrogen 31 mg/dl (7-18); C Reactive Protein < 0.29 mg/dl (0-0.29); Calcium 8.3 mg/dl (8.5-10.1); Carbon Dioxide 21 mmol/L (21-32); Chloride 114 mmol/L (98-107); Creatinine Clr Calc Pharmacy 50.6 ml/min; Est GFR (African American) 53.9; Est GFR (Non-African American) 46.5; Glucose 94 mg/dl (70-99); Potassium 3.8 mmol/L (3.5-5.1); Sodium 140 mmol/L (136-145)
[2018-08-21] MEDS: SODIUM CHLORIDE 0.9% 1000ML 1,000 ML IV SCH ×3 (07:21→23:09)
[2018-08-21] MEDS: PANTOprazole 40 MG TAB PO SCH (07:22)
[2018-08-21] MEDS: ARIPiprazole 15 MG TAB PO SCH (07:22)
[2018-08-21] MEDS: ASPIRIN 81 MG ECTAB PO SCH (07:22)
[2018-08-21] MEDS: TRAZODONE HCL 100 MG TAB PO SCH (07:22)
[2018-08-21] MEDS: lamoTRIgine 25 MG TAB PO SCH ×2 (07:22→20:45)
[2018-08-21] MEDS: HEPARIN SOD 5,000 UNIT/0.5 ML VIAL SQ SCH ×2 (07:23→20:45)
[2018-08-21] MEDS: INSULIN ASPART 100 UNITS/ML 3 ML PEN SC SCH ×4 (08:32→20:46)
--- NOTE | 2018-08-21 11:58 | Nephrology Progress Note ---
Date of Service August 21, 2018 Assessment & Plan (1) Acute renal failure: GREGORY due to dehydration and febrile illness. Clinical presentation concerning for acute colitis. Patient w/ history of recurrent major depression , AODM and hyperlipidemia Renal function improve significantly, electrolyte acceptable. Remain non- oliguric. Expect renal function to continue to improve -- okay to continue on IV fluid now however if p.o. intake improved from consider day decrease the IV rate to 75 mL/hour -- Monitor serial PRP While in hospital. -- Since renal function improved and now close to normal, electrolyte acceptable, blood pressure acceptable, remain non-oliguric, No further nephrology follow-up needed at this time. Will sign off. Please do not hesitate to contact if any further assistance needed. Subjective Claudia Seen in room this morning. She denies any symptom. Blood pressure remained stable. Renal function improve significantly with IV hydration, creatinine now close to baseline, 1.2.. Electrolyte acceptable. Constitutional: + fever and + malaise Physical Exam 2 Vital Signs (Past 24 Hours): Last Vital Signs Temp 36.9 C 08/21/18 07:14 Pulse 67 08/21/18 07:14 Resp 18 08/21/18 07:14 BP 127/73 08/21/18 07:14 Pulse Ox 100 08/21/18 07:14 Physical Exam: GENERAL: Middle-aged female, AAA x 3, , not in any distress. NECK: Supple, no JVD. RESPIRATORY: clear to auscultation bilaterally, no wheezes or rales. CARDIOVASCULAR: S1, S2 normal, rate rhythm regular. EXTREMITY: No lower extremity edema NEURO: speech fluent. PSYCHIATRY: Normal mood and judgment _ (1) Acute renal failure Acute renal failure type: unspecified Qualified Code(s): N17.9 - Acute kidney failure, unspecified
[2018-08-21] MEDS: LORazepam 0.5 MG TAB PO PRN ×2 (15:39→20:45)
--- NOTE | 2018-08-21 16:31 | Family Medicine Progress Note ---
Date of Service August 21, 2018 Assessment & Plan (1) Severe depression: (2) Hypertension: (3) Diabetes: (4) Elevated troponin: (5) Acute renal failure: 63yoF with hx of HTN, HLD, DM and severe recurrent major depression presented from the [facility] on 08/19 with diarrhea and altered mental status. She was found to have severe acute renal failure likely secondary to dehydration. Her troponin also uptrended and she had some EKG changes (unsure if old vs. new given lack of history/medical records) but has now downtrended and EKG changes improved likely due to supply demand mismatch in the setting of significant CAD given she had dynamic EKG changes. Pt had been taking her home lasix, metformin , lisinopril and lithium as well AMS likely secondary to significant dehydration - improved, pt at baseline this AM -Head CT no acute abnormalities -Neuro checks ARF likely secondary to dehydration/pre-renal in the setting of diarrhea -BUN/Cr initially 93/5.6 -> 62/2.5 --> 1.24/31 -FeNA 0.7% -Abdominal CT: no renal calculi/hydronephrosis -No electrolyte abnormalities -Received 3L bolus initially + maintainance NS at 75mls/hr now -Hold home metformin and lisinopril -Nephrology consulted: likely pre-renal continue rehydration - given improvement signed off -monitor BMP ?fever, and diarrhea likely viral vs. bacterial - resolved -no fever noted on EMR but pt was initially tachycardic -CT abdomen: concerning for diarrheal illness, no obstruction -C. diff negative -WBC initially 20 but likely hemoconcentrated and normalized to 8 secondary to rehydration -Blood cultures NGTD -Received zosyn empiric coverage initially - discontinued on 08/20 as unlikely to be bacterial given significantly improved WBC, and normal inflammatory markers Elevated troponin - asymptomatic -Troponin 0.47->0.34->0.159 -EKG initially concerning for Q waves in inferior leads, and lateral Twave inversion; repeat: subtle V1, V2 st elevation and inverted T waves in II (no previous comparison EKG in previous or new [facility] ) --> normalized this AM CXR mild cardiomegaly -ECHO: no wall motion abnl, EF 60-65%, grade 1 diastolic dysfunction -started on aspirin and atorvastatin 40mg daily -Cardiology consulted for concern of significant CAD given dynamic EKG changes DM -was on januvia and metformin at home -On SSI here -continue to monitor Severe depression/mood disorder: -Continued home trazodone, lamictal and abilify -holding lithium in the setting of ARF FEN/GI: protonix 40mg daily, low potassium diet, monitor and replete electrolytes as needed DVT prophylaxis: heparin Code: Full Dispo: pending clinical improvement likely back to the [facility] tomorrow (6) DVT prophylaxis: (7) Colitis: Subjective This AM pt was more alert. Reports resolved diarrhea. Denies any f/c, SALGUERO/dizziness, cp, sob, abdominal pain, n/v, dysuria. Physical Exam 2 Vital Signs (Past 24 Hours): Last Vital Signs Temp 37.1 C 08/21/18 14:58 Pulse 97 H 08/21/18 14:58 Resp 16 08/21/18 14:58 BP 170/77 H 08/21/18 14:58 Pulse Ox 98 08/21/18 14:58 Physical Exam: General: In NAD, alert this AM CV: RRR, no m/r/g Pulm: CTAB, equal breath sounds bilaterally Abdomen: +BS, diffusely non TTP, non-distended LE: No LE edema, no calf tenderness to palpation Results & Data Laboratory Results Abnormal lab results 08/21/18 08/21/18 08/21/18 Range/Units 05:42 05:42 07:25 RBC 3.51 L (4.2-5.4) M/uL Hgb 11.0 L (12.0-16.0) g/dL Hct 33.0 L (37-47) % Chloride 114 H (98-107) mmol/L BUN 31 H (7-18) mg/dl Creatinine 1.24 H D (0.6-1.2) mg/dl BUN/Creatinine Ratio 24.9 H (10-20) POC Glucose 126 H (70-99) Calcium 8.3 L (8.5-10.1) mg/dl Medications Administered Current Inpatient Medications Acetaminophen (Tylenol) 650 mg PO Q4H PRN PRN Reason: Pain or Fever Stop: 09/18/18 14:59 Last Admin: 08/21/18 05:45 Dose: 650 mg Aripiprazole (Abilify) 15 mg PO DAILY [facility] Stop: 09/19/18 08:59 Last Admin: 08/21/18 07:22 Dose: 15 mg Aspirin (Ecotrin Ectab) 81 mg PO QAM [facility] Stop: 09/19/18 08:59 Last Admin: 08/21/18 07:22 Dose: 81 mg Atorvastatin Calcium (Lipitor) 40 mg PO HS [facility] Stop: 09/18/18 20:59 Last Admin: 08/20/18 20:07 Dose: 40 mg Dextrose (Dextrose 50%) 25 - 50 ml IV UD PRN; Protocol PRN Reason: Hypoglycemia Protocol Stop: 09/18/18 14:59 Glucagon (Glucagen) 1 mg SQ UD PRN; Protocol PRN Reason: Hypoglycemia Protocol Stop: 09/18/18 14:59 Glucose (Glucose 40%) 15 - 30 gm PO UD PRN; Protocol PRN Reason: Hypoglycemia Protocol Stop: 09/18/18 14:59 Glucose (Dex4 Glucose) 4 - 8 tabs PO UD PRN; Protocol PRN Reason: Hypoglycemia Protocol Stop: 09/18/18 14:59 Heparin Sodium (Porcine) (Heparin Sodium (Porcine)) 5,000 units SQ Q12 [facility] Stop: 09/18/18 20:59 Last Admin: 08/21/18 07:23 Dose: 5,000 units Sodium Chloride (Nss 1000ml) 1,000 mls @ 75 mls/hr IV .[id number] [facility] Stop: 09/18/18 15:14 Last Admin: 08/21/18 15:36 Dose: 125 mls/hr Insulin Aspart (Novolog Flexpen) 0 units SC ACHS [facility]; Protocol Stop: 09/18/18 16:29 Last Admin: 08/21/18 12:06 Dose: Not Given Lamotrigine (Lamictal) 50 mg PO BID [facility] Stop: 09/18/18 20:59 Last Admin: 08/21/18 07:22 Dose: 50 mg Lorazepam (Ativan) 0.5 mg PO TID PRN PRN Reason: Anxiety Stop: 09/18/18 14:59 Last Admin: 08/21/18 15:39 Dose: 0.5 mg Miscellaneous (Carbohydrates For Hypoglycemia) 15 - 30 gm PO UD PRN PRN Reason: Hypoglycemia Treatment Stop: 09/18/18 14:59 Miscellaneous Information (Consult Glycemic Management Pharmacy) 1 ea N/A UD PRN; Protocol PRN Reason: Consult Stop: 09/18/18 15:29 Nitroglycerin (Nitrostat) 0.4 mg SL UD PRN PRN Reason: Chest Pain Stop: 09/18/18 14:59 Pantoprazole Sodium (Protonix) 40 mg PO DAILY [facility] Stop: 09/19/18 08:59 Last Admin: 08/21/18 07:22 Dose: 40 mg Trazodone HCl (Desyrel) 100 mg PO DAILY [facility] Stop: 09/19/18 08:59 Last Admin: 08/21/18 07:22 Dose: 100 mg Resident Activity Tracking Resident Involvement: Resident Care Provided Care Provided: [facility] Medicine _ (1) Acute renal failure Acute renal failure type: unspecified Qualified Code(s): N17.9 - Acute kidney failure, unspecified
[2018-08-21] MEDS: ATORVASTATIN 40 MG TAB PO SCH (20:45)
[2018-08-22] MEDS: ACETAMINOPHEN 325 MG TAB PO PRN ×2 (00:39→04:23)
[2018-08-22 06:42] LABS: BUN Creatinine Ratio 18.1 (10-20); Creatinine Clr Calc Pharmacy 68.9 ml/min; Est GFR (African American) 78.4; Est GFR (Non-African American) 67.6; Potassium 3.4 mmol/L (3.5-5.1)
[2018-08-22] MEDS: INSULIN ASPART 100 UNITS/ML 3 ML PEN SC SCH ×4 (08:16→20:47)
[2018-08-22] MEDS: HEPARIN SOD 5,000 UNIT/0.5 ML VIAL SQ SCH ×2 (08:17→20:46)
[2018-08-22] MEDS: lamoTRIgine 25 MG TAB PO SCH ×2 (08:18→20:47)
[2018-08-22] MEDS: ARIPiprazole 15 MG TAB PO SCH (08:18)
[2018-08-22] MEDS: TRAZODONE HCL 100 MG TAB PO SCH (08:18)
[2018-08-22] MEDS: ASPIRIN 81 MG ECTAB PO SCH (08:18)
[2018-08-22] MEDS: POTASSIUM CHLORIDE PWD 20 MEQ PACK PO SCH (08:18)
[2018-08-22] MEDS: PANTOprazole 40 MG TAB PO SCH (08:18)
--- NOTE | 2018-08-22 11:45 | Pharmacy Report ---
Pharmacy Glycemic Sign Off Nt - Date of Service August 22, 2018 - Assessment & Plan ASSESSMENT: * Pharmacy was consulted by Dr Hines on 08/19/18 for glycemic control and to write orders per [facility] inpatient glycemic control protocol. * Major changes made by pharmacy to antidiabetic regimen include: * slight adjustment of Novolog parameters * Patient has been receiving no insulin, as BSGs have been well-controlled without any. * BSGs ranging from 95-135 mg/dl * Do not anticipate further changes in patient status that would quickly deteriorate glycemic control (i.e. patient to be NPO for upcoming procedure, steroids tapering, starting tube feedings, etc). * Please see recommendations for outpatient antidiabetic regimen below. PLAN FOR INPATIENT GLYCEMIC CONTROL: No changes needed to current regimen. * Basal insulin -- none * Continue NovoLog per scale ACHS/Q6hrs while NPO * Goal range = 110 140 mg/dl * CF = 25 mg/dl/unit * CR = removed -- it does not appear that patient requires coverage * Pharmacy is signing off of glycemic consult and will no longer be making adjustments to inpatient regimen. Please feel free to re-consult if needed. Thank you. DISCHARGE RECOMMENDATIONS: * A1c 5.4 % on 08/20/18 * In H&P, it is stated that patient takes Metformin/Januvia, however these medications are not listed on patient's MedRec. * A1c indicates that patient may resume prior regimen after discharge.
[2018-08-22] MEDS: SODIUM CHLORIDE 0.9% 1000ML 1,000 ML IV SCH (12:15)
--- NOTE | 2018-08-22 13:54 | Cardiology Consultation ---
Date of Consultation August 22, 2018 Assessment & Plan (1) Elevated troponin: She presented with a very slightly elevated troponin in the descending pattern. This is consistent with demand ischemia, I believe she has underlying coronary artery disease although I do not have records. There does not appear to be any acute component to it, either by symptoms, electrocardiographic or echocardiographic criteria. I would not pursue further evaluation. (2) CAD (coronary artery disease): By history she tells me that she has coronary artery disease (she actually use that term), she does have what looks like to get an anteroseptal myocardial infarction on electrocardiography although no wall motion abnormality on echocardiography. I do not know if her diagnosis was made on the basis of her electrocardiogram or by an event, but neither case she has risk factors and probably should be treated for coronary artery disease. I would not pursue further evaluation at this time however unless symptoms would occur. History of Present Illness Reason for Consultation: Elevated troponin, coronary artery disease Attending Physician: Audrey Jimenez History of Present Illness This is a 63-year-old male who has a history of diabetes, hypertension, coronary disease and depression. Her prior care was in [facility], she presents here from [place]. On arrival she was febrile and minimally responsive, at the time of my evaluation now she responds appropriately although somewhat slowly and appears to have a reasonable understanding of her history. She reports that she has "coronary artery disease" and thinks she had a cardiac catheterization although I am not sure since she is not very specific about it. She also reports that she had a heart murmur. She does follow with a bookkeeper in [place]. She is quite clear that she has not had chest discomfort recently, occluding in the hospital or from what she recalls before hospitalization. She is not short of breath and has no lightheadedness, dizziness or palpitations. Allergies Allergy/AdvReac Type Severity Reaction Status Date / Time aspirin Allergy Unknown Unverified 08/19/18 10:50 codeine Allergy Unknown Unverified 08/19/18 10:50 diazepam Allergy Unknown Unverified 08/19/18 10:50 fluoxetine Allergy Unknown Unverified 08/19/18 10:50 paroxetine Allergy Unknown Unverified 08/19/18 10:50 pseudoephedrine Allergy Unknown Unverified 08/19/18 10:50 tramadol Allergy Unknown Unverified 08/19/18 10:50 Home Medications Home Medications Medication Instructions Recorded Confirmed Type acetaminophen 325 mg PO Q4H PRN 08/19/18 08/19/18 History alum-mag hydroxide-simeth [Mag-Al 30 ml PO QID PRN 08/19/18 08/19/18 History Plus] aripiprazole 15 mg PO DAILY 08/19/18 08/19/18 History atorvastatin 40 mg PO HS 08/19/18 08/19/18 History lamotrigine 50 mg PO BID 08/19/18 08/19/18 History lorazepam 0.5 mg PO TID PRN 08/19/18 08/19/18 History magnesium hydroxide [Milk of 30 ml PO DAILY PRN 08/19/18 08/19/18 History Magnesia] montelukast 10 mg PO PM 08/19/18 08/19/18 History omeprazole 20 mg PO DAILY 08/19/18 08/19/18 History trazodone 100 mg PO DAILY 08/19/18 08/19/18 History Patient History Medical History Diabetes H/O: hysterectomy HLD (hyperlipidemia) HTN (hypertension) Major depressive disorder Surgical History History of appendectomy History of cholecystectomy Status post creation of urethral sling by suprapubic approach Social History marital status: Current Living Situation: Other Current Living Situation Comment: resides at [facility] Other Information That Helps Us Care for You: No Feels Safe at Home: Yes Safety Concerns: Feels Safe At This Time Smoking Status: Never smoker Do You Dip or Chew Tobacco: No Second Hand Exposure: No Tobacco Cessation Education Requested by Patient: No Hx Alcohol Use: No Hx Substance Use: No Beliefs That Will Affect Care: None Communication Ability: Impaired Review of Systems Negative for lightheadedness, dizziness, palpitations, presyncope or syncope. No exertional symptoms, no dyspnea on exertion or exertional chest pain. No orthopnea or PND or peripheral edema. No GI complaints, no bleeding. No neurologic complaints such as TIA or stroke symptoms. Other systems negative. Physical Exam 2 Vital Signs (Past 24 Hours): Last Vital Signs Temp 36.5 C 08/22/18 08:04 Pulse 70 08/22/18 08:04 Resp 18 08/22/18 08:04 BP 154/82 H 08/22/18 08:04 Pulse Ox 97 08/22/18 08:04 Physical Exam: Constitutional: Alert, cooperative and in no distress. HEENT: Unremarkable Neck: No jugular venous distention, carotid pulses are normal and equal bilaterally without bruits. Pulmonary: Clear to auscultation bilaterally. Cardiac: Regular rhythm with no murmur, gallop or rub. Abdomen: Soft, nontender with normal bowel sounds. Extremities: No edema. Distal pulses intact. Neurologic: No focal findings. Gait is steady. Skin: No rash, ecchymoses or petechiae. Results & Data Diagnostic Findings An electrocardiogram from August 18, 2018 prior to hospitalization shows sinus tachycardia with inferolateral ST-T abnormalities. Here subsequent electrocardiograms have shown sinus rhythm with a probable old anteroseptal myocardial infarction. No acute changes. An echocardiogram done on August 19, 2018 shows normal left ventricular size and function with no regional wall motion abnormalities Telemetry: Sinus rhythm, no significant arrhythmia
--- NOTE | 2018-08-22 16:57 | Family Medicine Progress Note ---
Date of Service August 22, 2018 Assessment & Plan (1) Severe depression: (2) Hypertension: (3) Diabetes: (4) Elevated troponin: (5) Acute renal failure: (6) DVT prophylaxis: (7) Colitis: 63yoF with hx of HTN, HLD, DM and severe recurrent major depression presented from the [facility] on 08/19 with diarrhea and altered mental status. She was found to have severe acute renal failure likely secondary to dehydration from diarrhea. Her troponin also uptrended and she had some EKG changes (unsure if old vs. new given lack of history/medical records) but likely due to supply demand mismatch in the setting of significant CAD changes. Leg weakness/?fatigue/?tremors -Patient very tearful today regarding inability to ambulate. -Refused to participate with PT today. Required 2 person assist with OT. -?Related to antipsychotic (EPSE?). -Need to see her walk, preferably with PT present. Consider evaluation by neurology Severe depression/mood disorder: -Continued home trazodone, lamictal and abilify -Apparently only dose change made at [facility] cut lamictal to 50mg BID, unknown previous dose -Trazodone switched to HS instead of AM -holding lithium in the setting of ARF likely caused by diarrhea -Need to ensure close outpatient f/u with psych to manage restarting and monitoring of lithium. ARF in the setting of diarrhea, RESOLVED -BUN/Cr initially 93/5.6 -->now normal -FeNA 0.7% -Abdominal CT: no renal calculi/hydronephrosis -No electrolyte abnormalities -Discontinued IVF 08/22/18 -Hold home metformin and lisinopril -monitor BMP Diarrhea, RESOLVED -no fever noted on EMR but pt was initially tachycardic -CT abdomen: concerning for diarrheal illness, no obstruction, C. diff negative -Blood cultures NGTD -Received zosyn empiric coverage initially - discontinued on 08/20 HTN -lisinopril d/aleena while at [facility] due to hypotension -monitor BP here and resume med once BP goes up. On lasix at home- ? leg edema/diastolic dysfunction -Euvolemic here. Follow for sign of any fluid overload. IVF d/aleena. Elevated troponin - asymptomatic -Troponin 0.47->0.34->0.159 -EKG initially concerning, has since resolved. Has h/o CAD. -ECHO: no wall motion abnl, EF 60-65%, grade 1 diastolic dysfunction -started on aspirin and atorvastatin 40mg daily -Cardiology consulted, appreciate recs. No further workup needed at this time. DM -was on januvia and metformin at home -On ISS here, well controlled -continue to monitor FEN/GI: protonix 40mg daily, low potassium diet, monitor and replete electrolytes as needed DVT prophylaxis: heparin Code: Full Dispo: Will need at minimum SNF/inpatient rehab for strength Supervising Physician Co-Signing Physician Notes Resident Physician Supervision Note: I independently interviewed and examined the patient and verified the alvarado history and physical, reviewed labs and image studies, discussed the case with the resident Dr. Ge and agree with the findings and care plan. Subjective Patient continues to report no diarrhea. She expresses that she would like to go home. She is teary and states that she is tired of not being able to walk. Denies chest pain, dyspnea, abdo pain, peripheral edema. Physical Exam 2 Vital Signs (Past 24 Hours): Last Vital Signs Temp 36.9 C 08/22/18 15:22 Pulse 88 08/22/18 15:22 Resp 20 08/22/18 15:22 BP 156/78 H 08/22/18 15:22 Pulse Ox 96 08/22/18 15:22 Constitutional: WD/WN, vitals as above + obese and + behavioral limitations Eyes: PERRL, conjunctivae normal, anicteric sclerae ENMT: external ear and nose normal, oropharynx normal Neck: normal visual inspection Respiratory: normal respiratory effort, lungs clear to auscultation Cardiovascular: RRR, no murmur, no edema Gastrointestinal (Abdomen): normal bowel sounds, soft, nontender, no hepatosplenomegaly Musculoskeletal: Extremities: extremities normal to inspection and + abnormal muscle tone (patient will move legs while distracted, but does not participate when asked to perform ROM/strength exercises citing fatigue.) Psychiatric: Orientation: alert Affect: + depressed affect and + flat affect Mood: + depressed mood Insight: + limited insight Judgement: + limited judgement Results & Data Laboratory Results 08/22/18 08/22/18 08/22/18 Range/Units 16:34 11:33 07:36 Sodium (136-145) mmol/L Potassium (3.5-5.1) mmol/L Chloride (98-107) mmol/L Carbon Dioxide (21-32) mmol/L Anion Gap (3-11) BUN (7-18) mg/dl Creatinine (0.6-1.2) mg/dl Est Cr Clr Drug Dosing ml/min Est GFR ( Amer) Est GFR (Non-Af Amer) BUN/Creatinine Ratio (10-20) Glucose (70-99) mg/dl POC Glucose 128 H 122 H 109 H (70-99) Calcium (8.5-10.1) mg/dl 08/22/18 08/21/18 Range/Units 05:30 20:17 Sodium 140 (136-145) mmol/L Potassium 3.4 L (3.5-5.1) mmol/L Chloride 115 H (98-107) mmol/L Carbon Dioxide 18 L (21-32) mmol/L Anion Gap 7.0 (3-11) BUN 17 (7-18) mg/dl Creatinine 0.91 D (0.6-1.2) mg/dl Est Cr Clr Drug Dosing 68.9 ml/min Est GFR ( Amer) 78.4 Est GFR (Non-Af Amer) 67.6 BUN/Creatinine Ratio 18.1 (10-20) Glucose 106 H (70-99) mg/dl POC Glucose 128 H (70-99) Calcium 8.0 L (8.5-10.1) mg/dl Medications Administered Current Inpatient Medications Acetaminophen (Tylenol) 650 mg PO Q4H PRN PRN Reason: Pain or Fever Stop: 09/18/18 14:59 Last Admin: 08/22/18 04:23 Dose: 650 mg Aripiprazole (Abilify) 15 mg PO DAILY [facility] Stop: 09/19/18 08:59 Last Admin: 08/22/18 08:18 Dose: 15 mg Aspirin (Ecotrin Ectab) 81 mg PO QAM [facility] Stop: 09/19/18 08:59 Last Admin: 08/22/18 08:18 Dose: 81 mg Atorvastatin Calcium (Lipitor) 40 mg PO HS [facility] Stop: 09/18/18 20:59 Last Admin: 08/21/18 20:45 Dose: 40 mg Dextrose (Dextrose 50%) 25 - 50 ml IV UD PRN; Protocol PRN Reason: Hypoglycemia Protocol Stop: 09/18/18 14:59 Glucagon (Glucagen) 1 mg SQ UD PRN; Protocol PRN Reason: Hypoglycemia Protocol Stop: 09/18/18 14:59 Glucose (Glucose 40%) 15 - 30 gm PO UD PRN; Protocol PRN Reason: Hypoglycemia Protocol Stop: 09/18/18 14:59 Glucose (Dex4 Glucose) 4 - 8 tabs PO UD PRN; Protocol PRN Reason: Hypoglycemia Protocol Stop: 09/18/18 14:59 Heparin Sodium (Porcine) (Heparin Sodium (Porcine)) 5,000 units SQ Q12 [facility] Stop: 09/18/18 20:59 Last Admin: 08/22/18 08:17 Dose: 5,000 units Insulin Aspart (Novolog Flexpen) 0 units SC ACHS [facility] Stop: 09/18/18 16:29 Last Admin: 08/22/18 12:03 Dose: Not Given Lamotrigine (Lamictal) 50 mg PO BID [facility] Stop: 09/18/18 20:59 Last Admin: 08/22/18 08:18 Dose: 50 mg Lorazepam (Ativan) 0.5 mg PO TID PRN PRN Reason: Anxiety Stop: 09/18/18 14:59 Last Admin: 08/21/18 20:45 Dose: 0.5 mg Miscellaneous (Carbohydrates For Hypoglycemia) 15 - 30 gm PO UD PRN PRN Reason: Hypoglycemia Treatment Stop: 09/18/18 14:59 Nitroglycerin (Nitrostat) 0.4 mg SL UD PRN PRN Reason: Chest Pain Stop: 09/18/18 14:59 Pantoprazole Sodium (Protonix) 40 mg PO DAILY [facility] Stop: 09/19/18 08:59 Last Admin: 08/22/18 08:18 Dose: 40 mg Potassium Chloride (Klor-Con Pwd) 40 meq PO ONE [facility] Stop: 09/21/18 07:14 Last Admin: 08/22/18 08:18 Dose: 40 meq Trazodone HCl (Desyrel) 100 mg PO DAILY [facility] Stop: 09/19/18 08:59 Last Admin: 08/22/18 08:18 Dose: 100 mg Resident Activity Tracking Resident Involvement: Resident Care Provided Care Provided: [facility] Medicine _ (1) Acute renal failure Acute renal failure type: unspecified Qualified Code(s): N17.9 - Acute kidney failure, unspecified
[2018-08-22] MEDS: ATORVASTATIN 40 MG TAB PO SCH (20:47)
[2018-08-22] MEDS: LORazepam 0.5 MG TAB PO PRN (20:52)
[2018-08-23] MEDS: ACETAMINOPHEN 325 MG TAB PO PRN (02:44)
[2018-08-23 07:21] LABS: BUN Creatinine Ratio 12.1 (10-20); Calcium 8.3 mg/dl (8.5-10.1); Creatinine Clr Calc Pharmacy 74.7 ml/min; Est GFR (African American) 86.3; Est GFR (Non-African American) 74.5; Potassium 3.3 mmol/L (3.5-5.1)
[2018-08-23] MEDS ORDERED: POTASSIUM CHLORIDE 20 MEQ/15 ML UDC PO STA (07:23)
[2018-08-23] MEDS: INSULIN ASPART 100 UNITS/ML 3 ML PEN SC SCH ×4 (08:02→20:50)
[2018-08-23] MEDS: PANTOprazole 40 MG TAB PO SCH (08:03)
[2018-08-23] MEDS: HEPARIN SOD 5,000 UNIT/0.5 ML VIAL SQ SCH ×2 (08:03→21:58)
[2018-08-23] MEDS: ARIPiprazole 15 MG TAB PO SCH (08:03)
[2018-08-23] MEDS: ASPIRIN 81 MG ECTAB PO SCH (08:03)
[2018-08-23] MEDS: TRAZODONE HCL 100 MG TAB PO SCH (08:03)
[2018-08-23] MEDS: lamoTRIgine 25 MG TAB PO SCH ×2 (08:03→21:57)
[2018-08-23] MEDS: POTASSIUM CHLORIDE PWD 20 MEQ PACK PO SCH (08:11)
--- NOTE | 2018-08-23 11:33 | Family Medicine Progress Note ---
Date of Service August 23, 2018 Assessment & Plan (1) Severe depression: (2) Hypertension: (3) Diabetes: (4) Elevated troponin: (5) Acute renal failure: (6) DVT prophylaxis: (7) Colitis: 63yoF with hx of HTN, HLD, DM and severe recurrent major depression presented from the [facility] on 08/19 with diarrhea and altered mental status. She was found to have severe acute renal failure likely secondary to dehydration from diarrhea. Her troponin also uptrended and she had some EKG changes (unsure if old vs. new given lack of history/medical records) but likely due to supply demand mismatch in the setting of significant CAD changes. Leg weakness -Patient very tearful today regarding inability to ambulate. -Good hip flexion and knee extension, but was unable to stand without becoming dizzy. Unstable on feet, wobbled and fell back into bed -?Related to antipsychotic (EPS). -Ordered evaluation by neurology Severe depression/mood disorder: -Continued home trazodone, lamictal and abilify -Apparently only dose change made at [facility] cut lamictal to 50mg BID, unknown previous dose -Trazodone switched to HS instead of AM -holding lithium in the setting of ARF likely caused by diarrhea -Need to ensure close outpatient f/u with psych to manage restarting and monitoring of lithium. ARF in the setting of diarrhea, RESOLVED -BUN/Cr initially 93/5.6 -->now normal -FeNA 0.7% -Abdominal CT: no renal calculi/hydronephrosis -No electrolyte abnormalities -Discontinued IVF 08/22/18 -Hold home metformin and lisinopril -monitor BMP Diarrhea, RESOLVED -no fever noted on EMR but pt was initially tachycardic -CT abdomen: concerning for diarrheal illness, no obstruction, C. diff negative -Blood cultures NGTD -Received zosyn empiric coverage initially - discontinued on 08/20 Elevated troponin - asymptomatic -Troponin 0.47->0.34->0.159 -EKG initially concerning, has since resolved. Has h/o CAD. -ECHO: no wall motion abnl, EF 60-65%, grade 1 diastolic dysfunction -started on aspirin and atorvastatin 40mg daily -Cardiology consulted, appreciate recs. No further workup needed at this time. DM -was on januvia and metformin at home -On ISS here, well controlled -continue to monitor FEN/GI: protonix 40mg daily, low potassium diet, monitor and replete electrolytes as needed DVT prophylaxis: heparin Code: Full Dispo: Will need at minimum SNF/inpatient rehab for strength. Patient reluctantly amenable. CM unable to reach family by phone today. Supervising Physician Co-Signing Physician Notes Resident Physician Supervision Note: I independently interviewed and examined the patient and verified the alvarado history and physical, reviewed labs and image studies, discussed the case with the resident Dr. Ge and agree with the findings and care plan. Subjective Reports some lightheadedness this morning, no other complaints.Patient continues to report no diarrhea. She expresses that she would like to go home. Denies chest pain, dyspnea, abdo pain, peripheral edema. Physical Exam 2 Vital Signs (Past 24 Hours): Last Vital Signs Temp 36.6 C 08/23/18 07:48 Pulse 110 H 08/23/18 07:48 Resp 18 08/23/18 07:48 BP 168/99 H 08/23/18 07:48 Pulse Ox 95 08/23/18 07:48 Constitutional: WD/WN, vitals as above + obese and + behavioral limitations Eyes: PERRL, conjunctivae normal, anicteric sclerae ENMT: external ear and nose normal, oropharynx normal Neck: normal visual inspection Respiratory: normal respiratory effort, lungs clear to auscultation Cardiovascular: RRR, no murmur, no edema Gastrointestinal (Abdomen): normal bowel sounds, soft, nontender, no hepatosplenomegaly Musculoskeletal: Extremities: extremities normal to inspection and + abnormal muscle tone (patient will move legs while distracted, but does not participate when asked to perform ROM/strength exercises citing fatigue.) Psychiatric: Orientation: alert Affect: + depressed affect and + flat affect Mood: + depressed mood Insight: + limited insight Judgement: + limited judgement Results & Data Laboratory Results 08/23/18 08/23/18 08/22/18 Range/Units 07:30 06:07 20:41 Sodium 140 (136-145) mmol/L Potassium 3.3 L (3.5-5.1) mmol/L Chloride 112 H (98-107) mmol/L Carbon Dioxide 20 L (21-32) mmol/L Anion Gap 8.0 (3-11) BUN 10 D (7-18) mg/dl Creatinine 0.84 (0.6-1.2) mg/dl Est Cr Clr Drug Dosing 74.7 ml/min Est GFR ( Amer) 86.3 Est GFR (Non-Af Amer) 74.5 BUN/Creatinine Ratio 12.1 (10-20) Glucose 144 H (70-99) mg/dl POC Glucose 136 H 171 H (70-99) Calcium 8.3 L (8.5-10.1) mg/dl 08/22/18 08/22/18 Range/Units 16:34 11:33 Sodium (136-145) mmol/L Potassium (3.5-5.1) mmol/L Chloride (98-107) mmol/L Carbon Dioxide (21-32) mmol/L Anion Gap (3-11) BUN (7-18) mg/dl Creatinine (0.6-1.2) mg/dl Est Cr Clr Drug Dosing ml/min Est GFR ( Amer) Est GFR (Non-Af Amer) BUN/Creatinine Ratio (10-20) Glucose (70-99) mg/dl POC Glucose 128 H 122 H (70-99) Calcium (8.5-10.1) mg/dl Medications Administered Current Inpatient Medications Acetaminophen (Tylenol) 650 mg PO Q4H PRN PRN Reason: Pain or Fever Stop: 09/18/18 14:59 Last Admin: 08/23/18 02:44 Dose: 650 mg Aripiprazole (Abilify) 15 mg PO DAILY [facility] Stop: 09/19/18 08:59 Last Admin: 08/23/18 08:03 Dose: 15 mg Aspirin (Ecotrin Ectab) 81 mg PO QAM [facility] Stop: 09/19/18 08:59 Last Admin: 08/23/18 08:03 Dose: 81 mg Atorvastatin Calcium (Lipitor) 40 mg PO HS [facility] Stop: 09/18/18 20:59 Last Admin: 08/22/18 20:47 Dose: 40 mg Dextrose (Dextrose 50%) 25 - 50 ml IV UD PRN; Protocol PRN Reason: Hypoglycemia Protocol Stop: 09/18/18 14:59 Glucagon (Glucagen) 1 mg SQ UD PRN; Protocol PRN Reason: Hypoglycemia Protocol Stop: 09/18/18 14:59 Glucose (Glucose 40%) 15 - 30 gm PO UD PRN; Protocol PRN Reason: Hypoglycemia Protocol Stop: 09/18/18 14:59 Glucose (Dex4 Glucose) 4 - 8 tabs PO UD PRN; Protocol PRN Reason: Hypoglycemia Protocol Stop: 09/18/18 14:59 Heparin Sodium (Porcine) (Heparin Sodium (Porcine)) 5,000 units SQ Q12 [facility] Stop: 09/18/18 20:59 Last Admin: 08/23/18 08:03 Dose: 5,000 units Insulin Aspart (Novolog Flexpen) 0 units SC ACHS [facility] Stop: 09/18/18 16:29 Last Admin: 08/23/18 08:02 Dose: Not Given Lamotrigine (Lamictal) 50 mg PO BID [facility] Stop: 09/18/18 20:59 Last Admin: 08/23/18 08:03 Dose: 50 mg Lorazepam (Ativan) 0.5 mg PO TID PRN PRN Reason: Anxiety Stop: 09/18/18 14:59 Last Admin: 08/22/18 20:52 Dose: 0.5 mg Miscellaneous (Carbohydrates For Hypoglycemia) 15 - 30 gm PO UD PRN PRN Reason: Hypoglycemia Treatment Stop: 09/18/18 14:59 Nitroglycerin (Nitrostat) 0.4 mg SL UD PRN PRN Reason: Chest Pain Stop: 09/18/18 14:59 Pantoprazole Sodium (Protonix) 40 mg PO DAILY [facility] Stop: 09/19/18 08:59 Last Admin: 08/23/18 08:03 Dose: 40 mg Trazodone HCl (Desyrel) 100 mg PO DAILY [facility] Stop: 09/19/18 08:59 Last Admin: 08/23/18 08:03 Dose: 100 mg Resident Activity Tracking Resident Involvement: Resident Care Provided Care Provided: [facility] Medicine _ (1) Acute renal failure Acute renal failure type: unspecified Qualified Code(s): N17.9 - Acute kidney failure, unspecified
[2018-08-23] MEDS: LORazepam 0.5 MG TAB PO PRN (19:44)
[2018-08-23] MEDS: ATORVASTATIN 40 MG TAB PO SCH (22:49)
[2018-08-24] MEDS: LORazepam 0.5 MG TAB PO PRN ×2 (04:18→16:10)
[2018-08-24] MEDS: ACETAMINOPHEN 325 MG TAB PO PRN ×2 (04:18→20:19)
[2018-08-24 07:09] LABS: Basophils # (auto) 0.03 K/uL (0-0.2); Basophils % (auto) 0.3 %; Eosinophils # (auto) 0.29 K/uL (0-0.5); Eosinophils % (auto) 2.8 %; Hematocrit (blood only) 33.9 % (37-47); Hemoglobin 11.4 g/dL (12.0-16.0); Immature Granulocytes # (auto) 0.06 K/uL (0.00-0.02); Immature Granulocytes % (auto) 0.6 %; Lymphocytes # (auto) 1.47 K/uL (1.2-3.4); Lymphocytes % (auto) 14.2 %; Mean Corpuscular Hgb Conc 33.6 g/dL (32-36); Mean Corpuscular Volume 92.6 fL (80-100); Mean Platelet Volume 9.7 fL (7.4-10.4); Monocytes # (auto) 0.43 K/uL (0.11-0.59); Monocytes % (auto) 4.2 %; Neutrophils # (auto) 8.06 K/uL (1.4-6.5); Neutrophils % (auto) 77.9 %; Platelet Count 187 K/uL (130-400); RDW Coefficient of Variation 13.7 % (11.5-14.5); RDW Standard Deviation 46.3 fL (36.4-46.3); Red Blood Count 3.66 M/uL (4.2-5.4); White Blood Count 10.34 K/uL (4.8-10.8)
[2018-08-24 07:41] LABS: BUN Creatinine Ratio 10.4 (10-20); Calcium 8.3 mg/dl (8.5-10.1); Creatinine Clr Calc Pharmacy 68.9 ml/min; Est GFR (African American) 78.4; Est GFR (Non-African American) 67.6; Potassium 3.3 mmol/L (3.5-5.1)
[2018-08-24] MEDS: HEPARIN SOD 5,000 UNIT/0.5 ML VIAL SQ SCH ×2 (08:11→21:38)
[2018-08-24] MEDS: ARIPiprazole 15 MG TAB PO SCH (08:11)
[2018-08-24] MEDS: INSULIN ASPART 100 UNITS/ML 3 ML PEN SC SCH ×4 (08:11→21:39)
[2018-08-24] MEDS: ASPIRIN 81 MG ECTAB PO SCH (08:11)
[2018-08-24] MEDS: lamoTRIgine 25 MG TAB PO SCH ×2 (08:11→20:20)
[2018-08-24] MEDS ORDERED: POTASSIUM CHLORIDE 20 MEQ/15 ML UDC PO STA (08:14)
[2018-08-24] MEDS: TRAZODONE HCL 100 MG TAB PO SCH (08:55)
[2018-08-24] MEDS: PANTOprazole 40 MG TAB PO SCH (08:55)
--- NOTE | 2018-08-24 09:55 | Neurology Consultation ---
Date of Consultation August 24, 2018 Assessment & Plan (1) Ambulatory dysfunction: This is a 63-year-old female who initially presented with low-grade fevers , diarrhea, signs of acute colitis, and acute renal failure secondary to dehydration. These initial medical problems improved over the last several days but patient now has complaints of dizziness and trouble standing and walking. Overall I think her ambulatory dysfunction is likely multifactorial including being bedbound for several days with acute illness and ongoing dizziness. It is unclear to me if the patient is at her normal baseline mental status as she does appear to have some cognitive dysfunction. Considering that her formal strength examination is good I think this is less likely to indicate a critical care myopathy. There is nothing on exam or presentation to suggest that there is any spinal lesions or major problems with the peripheral nerves in her lower extremities. Recommendations: Recommend checking LFTs, magnesium, Phos, CK (was initially high on admission, so want to make sure that it comes down), ammonia, and Lamictal level (Lamictal dose is low, but potentially with her recent kidney dysfunction, potentially could have had toxic levels causing dizziness) to look for other secondary causes of encephalopathy, dizziness or ambulatory dysfunction. Could also consider checking TSH and B12 level. If patient is not at her baseline mental status, would recommend checking an MRI and make sure that there is no mass, stroke, or signs of inflammation causing cognitive dysfunction and dizziness Thank you for allowing me to participate in this patient's care. If there is any questions or concerns, feel free to call/page me. History of Present Illness Reason for Consultation: Consultation for ambulatory dysfunction Attending Physician: Audrey Jimenez History of Present Illness This is a 63-year-old female who initially presented on the for altered mental status with increased creatinine and fevers. She was also having abdominal pain and diarrhea and had signs of acute colitis. Patient had acute kidney failure likely secondary to dehydration. Initially her WBCs were 20 and did correct to 10. ESR and CRP were within normal limits. Her initial CK on the was 1883. [place] level was within normal limits of 1.2 on the . Patient's mental status reportedly has improved the last several days and fevers have stopped. Diarrhea is also stopped. Kidney function has improved. Unclear what the patient's mental status is. She does have a psychiatric history and was at the [facility]. Patient denies any significant ambulatory dysfunction at home, although the patient is a fairly poor historian. She reports that she fell once in the bathtub but cannot adequately tell me if that was related to what she is experiencing now. It does appear that her ambulatory dysfunction symptoms are new since this admission. Despite her other symptoms improving has been noted for the last couple of days that she is having trouble standing or walking and is a 1 assist. Patient tells me that she tends to get dizzy when standing. She reports she has been dizzy in the past with certain medications. This dizziness or lightheadedness does appear to be new per this admission. She reports that that is what prevents her from standing or walking. She does feel generally fatigued or weak all over. Nothing focal. She denies any numbness. Denies any pain in her legs or back. CT of the head report and images from initial admission was reviewed and unremarkable. Past medical history significant for diabetes, hypertension, CAD, depression on Lamictal, Abilify and trazodone Family history: Denies any family history of neuropathy or muscle disease Social history: Patient reports that she typically walks unassisted. No tobacco or regular alcohol use Allergies Allergy/AdvReac Type Severity Reaction Status Date / Time aspirin Allergy Unknown Unverified 08/19/18 10:50 codeine Allergy Unknown Unverified 08/19/18 10:50 diazepam Allergy Unknown Unverified 08/19/18 10:50 fluoxetine Allergy Unknown Unverified 08/19/18 10:50 paroxetine Allergy Unknown Unverified 08/19/18 10:50 pseudoephedrine Allergy Unknown Unverified 08/19/18 10:50 tramadol Allergy Unknown Unverified 08/19/18 10:50 Home Medications Home Medications Medication Instructions Recorded Confirmed Type acetaminophen 325 mg PO Q4H PRN 08/19/18 08/19/18 History alum-mag hydroxide-simeth [Mag-Al 30 ml PO QID PRN 08/19/18 08/19/18 History Plus] aripiprazole 15 mg PO DAILY 08/19/18 08/19/18 History atorvastatin 40 mg PO HS 08/19/18 08/19/18 History lamotrigine 50 mg PO BID 08/19/18 08/19/18 History lorazepam 0.5 mg PO TID PRN 08/19/18 08/19/18 History magnesium hydroxide [Milk of 30 ml PO DAILY PRN 08/19/18 08/19/18 History Magnesia] montelukast 10 mg PO PM 08/19/18 08/19/18 History omeprazole 20 mg PO DAILY 08/19/18 08/19/18 History trazodone 100 mg PO DAILY 08/19/18 08/19/18 History Patient History Medical History Diabetes H/O: hysterectomy HLD (hyperlipidemia) HTN (hypertension) Major depressive disorder Surgical History History of appendectomy History of cholecystectomy Status post creation of urethral sling by suprapubic approach Social History marital status: Current Living Situation: Other Current Living Situation Comment: resides at [facility] Other Information That Helps Us Care for You: No Feels Safe at Home: Yes Safety Concerns: Feels Safe At This Time Smoking Status: Never smoker Do You Dip or Chew Tobacco: No Second Hand Exposure: No Tobacco Cessation Education Requested by Patient: No Hx Alcohol Use: No Hx Substance Use: No Beliefs That Will Affect Care: None Communication Ability: Impaired Review of Systems Complete review of systems otherwise negative except for the above-noted in HPI Physical Exam 2 Vital Signs (Past 24 Hours): Last Vital Signs Temp 36.9 C 08/24/18 07:20 Pulse 105 H 08/24/18 07:20 Resp 18 08/24/18 07:20 BP 173/97 H 08/24/18 07:20 Pulse Ox 96 08/24/18 07:20 Physical Exam: Gen.: Patient is alert and oriented in no acute distress lying in bed Heart: Regular rate and rhythm Extremities: No gross deformities or rashes noted Neurological examination: Mental status: Patient is alert and oriented to person and place. Patient is a poor historian. Poor attention and concentration. Often does not answer the question that was posed to her or follow commands correctly. Impaired recent and remote memory. May also has some delusions as she report that she needs to go home because the "girls are mean to me here." Speech is fluent without any dysarthria or aphasia noted Cranial nerves: Visual self intact. Funduscopic examination was unremarkable with no signs of papilledema. Pupils equally round and reactive to light. Extraocular muscles intact without nystagmus. No facial asymmetry noted. Facial sensation intact. Tongue midline. Good palatal elevation. Good shoulder shrug bilaterally. Hearing grossly intact voice. Strength: 5/5 both proximal and distal in all extremities (this initially took a lot of effort at this patient did not give full effort with formal strength examination initially). Tone is normal. Sensation: Grossly intact to light touch in all extremities Deep tendon reflexes: +1 in bilateral biceps and patellar. Toes are equivocal to plantar stimulation bilaterally Coordination: Patient has good finger to nose without dysmetria. Patient would not perform heel to crenshaw for me. Station within the bed is normal. When I set the patient up she started to get tremulous. I did not appreciate any truncal ataxia or cerebellar ataxia, but it did take considerable effort to get the patient to sit up. Patient would not stand for me as she reported that she felt significantly dizzy. With sitting the patient was diffusely tremulous but I do not think that there is any neurological or pathological tremors seen.
--- NOTE | 2018-08-24 15:18 | Psychiatric Consultation ---
Date of Consultation August 24, 2018 Impression / Recommendations Impression 63 yo F with h/o bipolar depression, DM, HTN, HLD admitted for ARF, abnormal EKG and fever. Psychiatry consulted for evaluation for fdc placement. Upon evaluation, patient does not seem to have any acute mental health concerns related to her bipolar disorder nor any safety concerns and denied SI/HI/aVH. Patient has no behavioral concerns reported by primary team and she would be a candidate for fdc placement. Recommendations: -Continue outpatient medications regimen -No acute safety concerns at this time -No Psychiatric concerns related to fdc placement at this time Inventory Assets Strengths: access to care, help seeking Needs: meds, fdc, follow up Risk Factors Assessment Male: No : Yes Health Problems: Yes Mental Health Diagnoses: Yes Substance Use Disorders: No Hopelessness: No Protective Factors Assessment : Yes Responsible for Young Children: No Employed: No Stable Relationships: Yes Supportive Family: Yes CPT Code 40144 Psych History Chief Complaint "I'm fine" History of Present Illness 63 yo F with h/o bipolar depression, DM, HTN, HLD admitted for ARF, abnormal EKG and fever. Psychiatry consulted for evaluation for fdc placement. Patient reports she is doing fine and states that she has been diagnosed with bipolar and depression. Denies depressive symptoms at this time and also denies psychotic or manic symptoms. She states she has a whom she loves and have been 35 years, and denies SI, intent or plan and denies HI/aVH. She was difficult of hearing at times but did answer all questions. Below auto-populated from chart: This patient presents from the [facility] with reportedly fevers at the [facility], severe acute renal failure, abnormal EKG elevated troponin and altered mental state Patient from [facility] we have very little records on the patient. Reportedly she has a history of diabetes heart disease hypertension dyslipidemia and severe recurrent major depression. While at the [facility] continuing her home medications including diuretics of Lasix and lisinopril metformin and lithium. Her renal function went from a creatinine 1.4 on presentation to now in the 5 range with a BUN 93. Patient cannot provide much history she did have stool incontinence during my evaluation and there is concern on the CT scan of her abdomen for colitis. There is no obstructive uropathy noted. Her white blood cell count is 20,000 he has no pneumonia or other focal signs of infection Perhaps she has C. difficile colitis precipitating dehydration which was urged on by her typical medications she will be admitted aggressively hydrated. The confounding variable is mild elevation of her troponin and abnormal EKG although not a consistent with acute cardiac syndrome Family history is unobtainable the patient's altered mental state Past Psychiatric History Previous Psych History: bipolar and depression Allergies Allergy/AdvReac Type Severity Reaction Status Date / Time aspirin Allergy Unknown Unverified 08/19/18 10:50 codeine Allergy Unknown Unverified 08/19/18 10:50 diazepam Allergy Unknown Unverified 08/19/18 10:50 fluoxetine Allergy Unknown Unverified 08/19/18 10:50 paroxetine Allergy Unknown Unverified 08/19/18 10:50 pseudoephedrine Allergy Unknown Unverified 08/19/18 10:50 tramadol Allergy Unknown Unverified 08/19/18 10:50 Home Medications Home Medications Medication Instructions Recorded Confirmed Type acetaminophen 325 mg PO Q4H PRN 08/19/18 08/19/18 History alum-mag hydroxide-simeth [Mag-Al 30 ml PO QID PRN 08/19/18 08/19/18 History Plus] aripiprazole 15 mg PO DAILY 08/19/18 08/19/18 History atorvastatin 40 mg PO HS 08/19/18 08/19/18 History lamotrigine 50 mg PO BID 08/19/18 08/19/18 History lorazepam 0.5 mg PO TID PRN 08/19/18 08/19/18 History magnesium hydroxide [Milk of 30 ml PO DAILY PRN 08/19/18 08/19/18 History Magnesia] montelukast 10 mg PO PM 08/19/18 08/19/18 History omeprazole 20 mg PO DAILY 08/19/18 08/19/18 History trazodone 100 mg PO DAILY 08/19/18 08/19/18 History Personal History Beliefs That Will Affect Care: None Patient History Medical History Diabetes H/O: hysterectomy HLD (hyperlipidemia) HTN (hypertension) Major depressive disorder Surgical History History of appendectomy History of cholecystectomy Status post creation of urethral sling by suprapubic approach Social History marital status: Current Living Situation: Other Current Living Situation Comment: resides at [place] Other Information That Helps Us Care for You: No Feels Safe at Home: Yes Safety Concerns: Feels Safe At This Time Smoking Status: Never smoker Do You Dip or Chew Tobacco: No Second Hand Exposure: No Tobacco Cessation Education Requested by Patient: No Hx Alcohol Use: No Hx Substance Use: No Beliefs That Will Affect Care: None Communication Ability: Impaired Physical Exam Psychiatric A+Ox3, euthymic affect Apperance: appropriately dressed Eye Contact: + fair eye contact Motor Behavior: no abnormal motor movements Speech: normal rate/rhythm/volume of speech Affect: euthymic affect and mood congruent with affect Thought Process: goal directed thought process Thought Content: not paranoid and no delusions Suicidal Thoughts: denies suicidal thoughts Homicidal Thoughts: denies homicidal thoughts Hallucinations: no auditory hallucinations and no visual hallucinations Cognition: attention grossly intact Estimated Intelligence: average estimated intelligence Insight: + fair insight Judgement: + fair judgement Vital Signs (Past 24 Hours) Last Vital Signs Temp 36.9 C 08/24/18 07:20 Pulse 105 H 08/24/18 07:20 Resp 18 08/24/18 07:20 BP 173/97 H 08/24/18 07:20 Pulse Ox 96 08/24/18 07:20 Results & Data Medications Administered Acetaminophen (Tylenol) 650 mg PO Q4H PRN PRN Reason: Pain or Fever Stop: 09/18/18 14:59 Last Admin: 08/24/18 04:18 Dose: 650 mg Admin: 08/23/18 02:44 Dose: 650 mg Admin: 08/22/18 04:23 Dose: 650 mg Admin: 08/22/18 00:39 Dose: 650 mg Admin: 08/21/18 05:45 Dose: 650 mg Admin: 08/20/18 08:30 Dose: 650 mg Aripiprazole (Abilify) 15 mg PO DAILY [facility] Stop: 09/19/18 08:59 Last Admin: 08/24/18 08:11 Dose: 15 mg Admin: 08/23/18 08:03 Dose: 15 mg Admin: 08/22/18 08:18 Dose: 15 mg Admin: 08/21/18 07:22 Dose: 15 mg Admin: 08/20/18 08:30 Dose: 15 mg Aspirin (Ecotrin Ectab) 81 mg PO QAM [facility] Stop: 09/19/18 08:59 Last Admin: 08/24/18 08:11 Dose: 81 mg Admin: 08/23/18 08:03 Dose: 81 mg Admin: 08/22/18 08:18 Dose: 81 mg Admin: 08/21/18 07:22 Dose: 81 mg Admin: 08/20/18 08:30 Dose: 81 mg Atorvastatin Calcium (Lipitor) 40 mg PO HS [facility] Stop: 09/18/18 20:59 Last Admin: 08/23/18 22:49 Dose: 40 mg Admin: 08/22/18 20:47 Dose: 40 mg Admin: 08/21/18 20:45 Dose: 40 mg Admin: 08/20/18 20:07 Dose: 40 mg Admin: 08/19/18 21:32 Dose: 40 mg Heparin Sodium (Porcine) (Heparin Sodium (Porcine)) 5,000 units SQ Q12 [facility] Stop: 09/18/18 20:59 Last Admin: 08/24/18 08:11 Dose: 5,000 units Admin: 08/23/18 21:58 Dose: 5,000 units Admin: 08/23/18 08:03 Dose: 5,000 units Admin: 08/22/18 20:46 Dose: 5,000 units Admin: 08/22/18 08:17 Dose: 5,000 units Admin: 08/21/18 20:45 Dose: 5,000 units Admin: 08/21/18 07:23 Dose: 5,000 units Admin: 08/20/18 20:06 Dose: 5,000 units Admin: 08/20/18 09:59 Dose: 5,000 units Admin: 08/19/18 21:31 Dose: 5,000 units Insulin Aspart (Novolog Flexpen) 0 units SC ACHS [facility] Stop: 09/18/18 16:29 Last Admin: 08/24/18 12:42 Dose: 3 units Admin: 08/24/18 08:11 Dose: Not Given Admin: 08/23/18 20:50 Dose: Not Given Admin: 08/23/18 17:03 Dose: Not Given Admin: 08/23/18 12:32 Dose: 1 units Admin: 08/23/18 08:02 Dose: Not Given Admin: 08/22/18 20:47 Dose: 2 units Admin: 08/22/18 17:42 Dose: Not Given Admin: 08/22/18 12:03 Dose: Not Given Admin: 08/22/18 08:16 Dose: Not Given Admin: 08/21/18 20:46 Dose: Not Given Admin: 08/21/18 17:52 Dose: Not Given Admin: 08/21/18 12:06 Dose: Not Given Admin: 08/21/18 08:32 Dose: Not Given Admin: 08/20/18 20:10 Dose: Not Given Admin: 08/20/18 17:05 Dose: Not Given Admin: 08/20/18 12:14 Dose: Not Given Admin: 08/20/18 07:40 Dose: Not Given Admin: 08/19/18 21:34 Dose: Not Given Admin: 08/19/18 17:12 Dose: Not Given Lamotrigine (Lamictal) 50 mg PO BID [facility] Stop: 09/18/18 20:59 Last Admin: 08/24/18 08:11 Dose: 50 mg Admin: 08/23/18 21:57 Dose: 50 mg Admin: 08/23/18 08:03 Dose: 50 mg Admin: 08/22/18 20:47 Dose: 50 mg Admin: 08/22/18 08:18 Dose: 50 mg Admin: 08/21/18 20:45 Dose: 50 mg Admin: 08/21/18 07:22 Dose: 50 mg Admin: 08/20/18 20:06 Dose: 50 mg Admin: 08/20/18 08:30 Dose: 50 mg Admin: 08/19/18 21:33 Dose: 50 mg Lorazepam (Ativan) 0.5 mg PO TID PRN PRN Reason: Anxiety Stop: 09/18/18 14:59 Last Admin: 08/24/18 04:18 Dose: 0.5 mg Admin: 08/23/18 19:44 Dose: 0.5 mg Admin: 08/22/18 20:52 Dose: 0.5 mg Admin: 08/21/18 20:45 Dose: 0.5 mg Admin: 08/21/18 15:39 Dose: 0.5 mg Admin: 08/20/18 21:34 Dose: 0.5 mg Pantoprazole Sodium (Protonix) 40 mg PO DAILY [facility] Stop: 09/19/18 08:59 Last Admin: 08/24/18 08:55 Dose: 40 mg Admin: 08/23/18 08:03 Dose: 40 mg Admin: 08/22/18 08:18 Dose: 40 mg Admin: 08/21/18 07:22 Dose: 40 mg Admin: 08/20/18 08:30 Dose: 40 mg Trazodone HCl (Desyrel) 100 mg PO DAILY [facility] Stop: 09/19/18 08:59 Last Admin: 08/24/18 08:55 Dose: 100 mg Admin: 08/23/18 08:03 Dose: 100 mg Admin: 08/22/18 08:18 Dose: 100 mg Admin: 08/21/18 07:22 Dose: 100 mg Admin: 08/20/18 08:30 Dose: 100 mg
--- NOTE | 2018-08-24 16:56 | Family Medicine Progress Note ---
Date of Service August 24, 2018 Assessment & Plan (1) Severe depression: (2) Hypertension: (3) Diabetes: (4) Elevated troponin: (5) Acute renal failure: (6) DVT prophylaxis: (7) Colitis: 63yoF with hx of HTN, HLD, DM and severe recurrent major depression presented from the [facility] on 08/19 with diarrhea and altered mental status. She was found to have severe acute renal failure likely secondary to dehydration from diarrhea. Her troponin also uptrended and she had some EKG changes (unsure if old vs. new given lack of history/medical records) but likely due to supply demand mismatch in the setting of significant CAD changes. Recurrent falls/ambulatory dysfunction and Leg weakness -Unable to participate with PT due to weakness -?Related to antipsychotic (EPS). -Neurology consulted, appreciate recs: measure LFTs, Mg, Phos, CKk, ammonia, lamictal level, TSH, B12, and check MRI if concern for brain mass, stroke, etc. -patient unable to participate in MRI due to metal in her ear. -PT/OT - SNF placement once cleared by psych. ARF in the setting of diarrhea, RESOLVED -BUN/Cr initially 93/5.6 -->now normal -FeNA 0.7% -Abdominal CT: no renal calculi/hydronephrosis -No electrolyte abnormalities -Discontinued IVF 08/22/18 -Hold home metformin and lisinopril. resume in am -monitor BMP Diarrhea, RESOLVED -no fever noted on EMR but pt was initially tachycardic -CT abdomen: concerning for diarrheal illness, no obstruction, C. diff negative -Blood cultures NGTD -Received zosyn empiric coverage initially - discontinued on 08/20 Elevated troponin - asymptomatic -Troponin 0.47->0.34->0.159 -EKG initially concerning, has since resolved. Has h/o CAD. -ECHO: no wall motion abnl, EF 60-65%, grade 1 diastolic dysfunction -started on aspirin and atorvastatin 40mg daily -Cardiology consulted, appreciate recs. No further workup needed at this time. Severe depression/mood disorder: -Continued home trazodone, lamictal and abilify. Abilify is new medication for patient in past month. -Apparently only dose change made at [facility] cut lamictal to 50mg BID, unknown previous dose -Trazodone switched to HS instead of AM -holding lithium in the setting of ARF likely caused by diarrhea -Need to ensure close outpatient f/u with psych to manage restarting and monitoring of lithium. DM -was on januvia and metformin at home -On ISS here, well controlled -continue to monitor FEN/GI: protonix 40mg daily, low potassium diet, monitor and replete electrolytes as needed DVT prophylaxis: heparin Code: Full Dispo: Will need at minimum SNF/inpatient rehab for strength. Patient reluctantly amenable. Spoke with family today in room, they are amenable to rehab prior to home. Psych consult for target clearance Supervising Physician Co-Signing Physician Notes Resident Physician Supervision Note: I independently interviewed and examined the patient and verified the alvarado history and physical, reviewed labs and image studies, discussed the case with the resident Dr. Ge and agree with the findings and care plan. Subjective Reports some lightheadedness this morning, weakness, no other complaints.Patient continues to report no diarrhea. She expresses that she would like to go home. Denies chest pain, dyspnea, abdo pain, peripheral edema. Physical Exam 2 Vital Signs (Past 24 Hours): Last Vital Signs Temp 36.9 C 08/24/18 15:00 Pulse 119 H 08/24/18 15:00 Resp 21 08/24/18 15:00 BP 145/91 H 08/24/18 15:00 Pulse Ox 98 08/24/18 15:00 Constitutional: WD/WN, vitals as above + obese and + behavioral limitations Eyes: PERRL, conjunctivae normal, anicteric sclerae ENMT: external ear and nose normal, oropharynx normal Neck: normal visual inspection Respiratory: normal respiratory effort, lungs clear to auscultation Cardiovascular: RRR, no murmur, no edema Gastrointestinal (Abdomen): normal bowel sounds, soft, nontender, no hepatosplenomegaly Musculoskeletal: Extremities: extremities normal to inspection and + abnormal muscle tone (patient will move legs while distracted, but does not participate when asked to perform ROM/strength exercises citing fatigue.) Psychiatric: Orientation: alert Affect: + depressed affect and + flat affect Mood: + depressed mood Insight: + limited insight Judgement: + limited judgement Results & Data Laboratory Results 08/24/18 08/24/18 08/24/18 Range/Units 16:35 11:34 09:40 WBC (4.8-10.8) K/uL RBC (4.2-5.4) M/uL Hgb (12.0-16.0) g/dL Hct (37-47) % MCV (80-100) fL MCH (25-34) pg MCHC (32-36) g/dL RDW Std Deviation (36.4-46.3) fL RDW Coeff of Shayy (11.5-14.5) % Plt Count (130-400) K/uL MPV (7.4-10.4) fL Immature Gran % (Auto) % Neut % (Auto) % Lymph % (Auto) % [place] % (Auto) % Eos % (Auto) % Baso % (Auto) % Immature Gran # (Auto) (0.00-0.02) K/uL Neut # (Auto) (1.4-6.5) K/uL Lymph # (Auto) (1.2-3.4) K/uL [place] # (Auto) (0.11-0.59) K/uL Eos # (Auto) (0-0.5) K/uL Baso # (Auto) (0-0.2) K/uL Sodium (136-145) mmol/L Potassium (3.5-5.1) mmol/L Chloride (98-107) mmol/L Carbon Dioxide (21-32) mmol/L Anion Gap (3-11) BUN (7-18) mg/dl Creatinine (0.6-1.2) mg/dl Est Cr Clr Drug Dosing ml/min Est GFR ( Amer) Est GFR (Non-Af Amer) BUN/Creatinine Ratio (10-20) Glucose (70-99) mg/dl POC Glucose 293 H 202 H (70-99) Calcium (8.5-10.1) mg/dl Total Creatine Kinase (26-192) U/L Lamotrigine Pending 08/24/18 08/24/18 08/24/18 Range/Units 09:40 07:33 06:57 WBC (4.8-10.8) K/uL RBC (4.2-5.4) M/uL Hgb (12.0-16.0) g/dL Hct (37-47) % MCV (80-100) fL MCH (25-34) pg MCHC (32-36) g/dL RDW Std Deviation (36.4-46.3) fL RDW Coeff of Shayy (11.5-14.5) % Plt Count (130-400) K/uL MPV (7.4-10.4) fL Immature Gran % (Auto) % Neut % (Auto) % Lymph % (Auto) % [place] % (Auto) % Eos % (Auto) % Baso % (Auto) % Immature Gran # (Auto) (0.00-0.02) K/uL Neut # (Auto) (1.4-6.5) K/uL Lymph # (Auto) (1.2-3.4) K/uL [place] # (Auto) (0.11-0.59) K/uL Eos # (Auto) (0-0.5) K/uL Baso # (Auto) (0-0.2) K/uL Sodium 140 (136-145) mmol/L Potassium 3.3 L (3.5-5.1) mmol/L Chloride 110 H (98-107) mmol/L Carbon Dioxide 18 L (21-32) mmol/L Anion Gap 12.0 H (3-11) BUN 9 (7-18) mg/dl Creatinine 0.91 (0.6-1.2) mg/dl Est Cr Clr Drug Dosing 68.9 ml/min Est GFR ( Amer) 78.4 Est GFR (Non-Af Amer) 67.6 BUN/Creatinine Ratio 10.4 (10-20) Glucose 147 H (70-99) mg/dl POC Glucose 131 H (70-99) Calcium 8.3 L (8.5-10.1) mg/dl Total Creatine Kinase 115 (26-192) U/L Lamotrigine 08/24/18 08/23/18 Range/Units 06:57 20:17 WBC 10.34 (4.8-10.8) K/uL RBC 3.66 L (4.2-5.4) M/uL Hgb 11.4 L (12.0-16.0) g/dL Hct 33.9 L (37-47) % MCV 92.6 (80-100) fL MCH 31.1 (25-34) pg MCHC 33.6 (32-36) g/dL RDW Std Deviation 46.3 (36.4-46.3) fL RDW Coeff of Shayy 13.7 (11.5-14.5) % Plt Count 187 (130-400) K/uL MPV 9.7 (7.4-10.4) fL Immature Gran % (Auto) 0.6 % Neut % (Auto) 77.9 % Lymph % (Auto) 14.2 % [place] % (Auto) 4.2 % Eos % (Auto) 2.8 % Baso % (Auto) 0.3 % Immature Gran # (Auto) 0.06 H (0.00-0.02) K/uL Neut # (Auto) 8.06 H (1.4-6.5) K/uL Lymph # (Auto) 1.47 (1.2-3.4) K/uL [place] # (Auto) 0.43 (0.11-0.59) K/uL Eos # (Auto) 0.29 (0-0.5) K/uL Baso # (Auto) 0.03 (0-0.2) K/uL Sodium (136-145) mmol/L Potassium (3.5-5.1) mmol/L Chloride (98-107) mmol/L Carbon Dioxide (21-32) mmol/L Anion Gap (3-11) BUN (7-18) mg/dl Creatinine (0.6-1.2) mg/dl Est Cr Clr Drug Dosing ml/min Est GFR ( Amer) Est GFR (Non-Af Amer) BUN/Creatinine Ratio (10-20) Glucose (70-99) mg/dl POC Glucose 132 H (70-99) Calcium (8.5-10.1) mg/dl Total Creatine Kinase (26-192) U/L Lamotrigine Medications Administered Current Inpatient Medications Acetaminophen (Tylenol) 650 mg PO Q4H PRN PRN Reason: Pain or Fever Stop: 09/18/18 14:59 Last Admin: 08/24/18 04:18 Dose: 650 mg Aripiprazole (Abilify) 15 mg PO DAILY [facility] Stop: 09/19/18 08:59 Last Admin: 08/24/18 08:11 Dose: 15 mg Aspirin (Ecotrin Ectab) 81 mg PO QAM [facility] Stop: 09/19/18 08:59 Last Admin: 08/24/18 08:11 Dose: 81 mg Atorvastatin Calcium (Lipitor) 40 mg PO HS [facility] Stop: 09/18/18 20:59 Last Admin: 08/23/18 22:49 Dose: 40 mg Dextrose (Dextrose 50%) 25 - 50 ml IV UD PRN; Protocol PRN Reason: Hypoglycemia Protocol Stop: 09/18/18 14:59 Glucagon (Glucagen) 1 mg SQ UD PRN; Protocol PRN Reason: Hypoglycemia Protocol Stop: 09/18/18 14:59 Glucose (Glucose 40%) 15 - 30 gm PO UD PRN; Protocol PRN Reason: Hypoglycemia Protocol Stop: 09/18/18 14:59 Glucose (Dex4 Glucose) 4 - 8 tabs PO UD PRN; Protocol PRN Reason: Hypoglycemia Protocol Stop: 09/18/18 14:59 Heparin Sodium (Porcine) (Heparin Sodium (Porcine)) 5,000 units SQ Q12 [facility] Stop: 09/18/18 20:59 Last Admin: 08/24/18 08:11 Dose: 5,000 units Insulin Aspart (Novolog Flexpen) 0 units SC ACHS [facility] Stop: 09/18/18 16:29 Last Admin: 08/24/18 12:42 Dose: 3 units Lamotrigine (Lamictal) 50 mg PO BID [facility] Stop: 09/18/18 20:59 Last Admin: 08/24/18 08:11 Dose: 50 mg Lorazepam (Ativan) 0.5 mg PO TID PRN PRN Reason: Anxiety Stop: 09/18/18 14:59 Last Admin: 08/24/18 16:10 Dose: 0.5 mg Miscellaneous (Carbohydrates For Hypoglycemia) 15 - 30 gm PO UD PRN PRN Reason: Hypoglycemia Treatment Stop: 09/18/18 14:59 Nitroglycerin (Nitrostat) 0.4 mg SL UD PRN PRN Reason: Chest Pain Stop: 09/18/18 14:59 Pantoprazole Sodium (Protonix) 40 mg PO DAILY [facility] Stop: 09/19/18 08:59 Last Admin: 08/24/18 08:55 Dose: 40 mg Trazodone HCl (Desyrel) 100 mg PO DAILY [facility] Stop: 09/19/18 08:59 Last Admin: 08/24/18 08:55 Dose: 100 mg Resident Activity Tracking Resident Involvement: Resident Care Provided Care Provided: Adult Hospital Medicine _ (1) Acute renal failure Acute renal failure type: unspecified Qualified Code(s): N17.9 - Acute kidney failure, unspecified
[2018-08-24] MEDS: ATORVASTATIN 40 MG TAB PO SCH (20:19)
[2018-08-25] MEDS: LORazepam 0.5 MG TAB PO PRN ×3 (00:56→18:25)
[2018-08-25] MEDS: ACETAMINOPHEN 325 MG TAB PO PRN ×2 (00:56→06:44)
[2018-08-25 06:28] LABS: Albumin Level 3.2 gm/dl (3.4-5.0); BUN Creatinine Ratio 9.9 (10-20); Bilirubin Direct 0.1 mg/dl (0-0.2); Calcium 8.5 mg/dl (8.5-10.1); Creatinine Clr Calc Pharmacy 70.5 ml/min; Est GFR (African American) 80.5; Est GFR (Non-African American) 69.5; Magnesium 1.6 mg/dl (1.8-2.4); Potassium 3.4 mmol/L (3.5-5.1)
[2018-08-25 06:40] LABS: Bilirubin,Total 0.6 mg/dl (0.2-1); Total Protein 6.2 gm/dl (6.4-8.2)
[2018-08-25] MEDS ORDERED: POTASSIUM PHOS 3 MMOL/1 ML INFUSION IV STA (06:50)
[2018-08-25] MEDS ORDERED: POTASSIUM PHOSPHATE 15 MMOL in SODIUM CHLORIDE 0.9% 250 ML IV ONE (07:30)
[2018-08-25] MEDS ORDERED: MAGNESIUM OXIDE 400 MG TAB PO ONE (07:30)
[2018-08-25] MEDS: lamoTRIgine 25 MG TAB PO SCH ×2 (08:31→21:35)
[2018-08-25] MEDS: TRAZODONE HCL 100 MG TAB PO SCH (08:31)
[2018-08-25] MEDS: PANTOprazole 40 MG TAB PO SCH (08:31)
[2018-08-25] MEDS: ASPIRIN 81 MG ECTAB PO SCH (08:32)
[2018-08-25] MEDS: ARIPiprazole 15 MG TAB PO SCH (08:32)
[2018-08-25] MEDS: HEPARIN SOD 5,000 UNIT/0.5 ML VIAL SQ SCH ×2 (08:39→21:36)
[2018-08-25] MEDS: INSULIN ASPART 100 UNITS/ML 3 ML PEN SC SCH ×4 (08:41→20:55)
--- NOTE | 2018-08-25 16:32 | Family Medicine Progress Note ---
Date of Service August 25, 2018 Assessment & Plan (1) Severe depression: (2) Hypertension: (3) Diabetes: (4) Elevated troponin: (5) Acute renal failure: (6) DVT prophylaxis: (7) Colitis: 63yoF with hx of HTN, HLD, DM and severe recurrent major depression presented from the [facility] on 08/19 with diarrhea and altered mental status. She was found to have severe acute renal failure likely secondary to dehydration from diarrhea. Her troponin also uptrended and she had some EKG changes (unsure if old vs. new given lack of history/medical records) but likely due to supply demand mismatch in the setting of significant CAD changes. Recurrent fall/Ambulatory dysfunction/Leg weakness -Patient very frustrated regarding inability to ambulate. -Unable to participate with PT due to weakness -?Related to antipsychotic (EPSE). -Neurology consulted, appreciate recs: measure LFTs, Mg, Phos, CKk, ammonia, lamictal level, TSH, B12, and check MRI if concern for brain mass, stroke, etc. -Electrolytes repleted, normal ammonia, nl TSH, B12 pending, LFTs overall normal (mild elevation of AST/ALT) -Unfortunately patient unable to participate in MRI due to metal in her ear. ARF in the setting of diarrhea, RESOLVED -BUN/Cr initially 93/5.6 -->now normal -FeNA 0.7% -Abdominal CT: no renal calculi/hydronephrosis -No electrolyte abnormalities -Discontinued IVF 08/22/18 -Hold home metformin and lisinopril -monitor BMP Diarrhea, RESOLVED -no fever noted on EMR but pt was initially tachycardic -CT abdomen: concerning for diarrheal illness, no obstruction, C. diff negative -Blood cultures NG -Received zosyn empiric coverage initially - discontinued on 08/20 Elevated troponin - asymptomatic -Troponin 0.47->0.34->0.159 -EKG initially concerning, has since resolved. Has h/o CAD. -ECHO: no wall motion abnl, EF 60-65%, grade 1 diastolic dysfunction -started on aspirin and atorvastatin 40mg daily -Cardiology consulted, appreciate recs. No further workup needed at this time. Severe depression/mood disorder: -Continued home trazodone, lamictal and abilify. Abilify is new medication for patient in past few months. -Patient spent 30 days at [facility] in June 2018 where abilify was purportedly started at 30 mg daily. -Per outside records it appear she felt she was overmedicated, at one point stopping abilify and presenting to [facility] with insomnia, where she was referred back to psychiatrist who decreased dose to 15mg. She has then since been seen at [facility] for anxiety when she was 201'd and sent to the [facility]. -Apparently only dose change made at [facility] cut lamictal to 50mg BID, unknown previous dose but will review records -Trazodone switched to HS instead of AM -holding lithium in the setting of ARF likely caused by diarrhea -Need to ensure close outpatient f/u with psych to manage restarting and monitoring of lithium. -Will call [facility] and [facility] in [facility](sp?) for records tomorrow DM -was on januvia and metformin at home -On ISS here, well controlled -continue to monitor FEN/GI: protonix 40mg daily, low potassium diet, monitor and replete electrolytes as needed DVT prophylaxis: heparin Code: Full Dispo: Will need at minimum SNF/inpatient rehab for strength. Patient reluctantly amenable. Family are amenable to rehab prior to home. Supervising Physician Co-Signing Physician Notes Resident Physician Supervision Note: I independently interviewed and examined the patient and verified the alvarado history and physical, reviewed labs and image studies, discussed the case with the resident Dr. Ge and agree with the findings and care plan. Subjective Patient started interview by stating she was feeling much better today. She denies lightheadedness or dizziness. She remains weak. Denies diarrhea. No other complaints. She expresses that she would like to go home. Denies chest pain, dyspnea, abdo pain, peripheral edema. By end of interview she states she did not sleep well and feels very "foggy", frequently falling asleep during our interview Physical Exam 2 Vital Signs (Past 24 Hours): Last Vital Signs Temp 36.9 C 08/25/18 14:51 Pulse 85 08/25/18 14:51 Resp 18 08/25/18 14:51 BP 143/81 H 08/25/18 14:51 Pulse Ox 94 08/25/18 14:51 Constitutional: WD/WN, vitals as above + obese and + behavioral limitations Eyes: PERRL, conjunctivae normal, anicteric sclerae ENMT: external ear and nose normal, oropharynx normal Neck: normal visual inspection Respiratory: normal respiratory effort, lungs clear to auscultation Cardiovascular: RRR, no murmur, no edema Gastrointestinal (Abdomen): normal bowel sounds, soft, nontender, no hepatosplenomegaly Musculoskeletal: Extremities: extremities normal to inspection Psychiatric: Orientation: alert Affect: + depressed affect and + flat affect Mood: + depressed mood Insight: + limited insight Judgement: + limited judgement Results & Data Laboratory Results 08/25/18 08/25/18 08/25/18 Range/Units 11:27 07:37 05:54 Sodium (136-145) mmol/L Potassium (3.5-5.1) mmol/L Chloride (98-107) mmol/L Carbon Dioxide (21-32) mmol/L Anion Gap (3-11) BUN (7-18) mg/dl Creatinine (0.6-1.2) mg/dl Est Cr Clr Drug Dosing ml/min Est GFR ( Amer) Est GFR (Non-Af Amer) BUN/Creatinine Ratio (10-20) Glucose (70-99) mg/dl POC Glucose 137 H 131 H (70-99) Calcium (8.5-10.1) mg/dl Phosphorus (2.5-4.9) mg/dl Magnesium (1.8-2.4) mg/dl Total Bilirubin (0.2-1) mg/dl Direct Bilirubin (0-0.2) mg/dl AST (15-37) U/L ALT (12-78) U/L Alkaline Phosphatase (45-117) U/L Ammonia 26.0 (11-32) umol/L Total Protein (6.4-8.2) gm/dl Albumin (3.4-5.0) gm/dl Vitamin B12 (211-911) pg/ml TSH (0.300-4.500) uIu/ml 08/25/18 08/25/18 08/24/18 Range/Units 05:54 05:53 20:42 Sodium 139 (136-145) mmol/L Potassium 3.4 L (3.5-5.1) mmol/L Chloride 110 H (98-107) mmol/L Carbon Dioxide 24 (21-32) mmol/L Anion Gap 5.0 (3-11) BUN 9 (7-18) mg/dl Creatinine 0.89 (0.6-1.2) mg/dl Est Cr Clr Drug Dosing 70.5 ml/min Est GFR ( Amer) 80.5 Est GFR (Non-Af Amer) 69.5 BUN/Creatinine Ratio 9.9 L (10-20) Glucose 170 H (70-99) mg/dl POC Glucose 174 H (70-99) Calcium 8.5 (8.5-10.1) mg/dl Phosphorus 2.0 L (2.5-4.9) mg/dl Magnesium 1.6 L (1.8-2.4) mg/dl Total Bilirubin 0.6 (0.2-1) mg/dl Direct Bilirubin 0.1 (0-0.2) mg/dl AST 73 H (15-37) U/L ALT 82 H (12-78) U/L Alkaline Phosphatase 94 (45-117) U/L Ammonia (11-32) umol/L Total Protein 6.2 L (6.4-8.2) gm/dl Albumin 3.2 L (3.4-5.0) gm/dl Vitamin B12 619 (211-911) pg/ml TSH 3.120 (0.300-4.500) uIu/ml Medications Administered Current Inpatient Medications Acetaminophen (Tylenol) 650 mg PO Q4H PRN PRN Reason: Pain or Fever Stop: 09/18/18 14:59 Last Admin: 08/25/18 06:44 Dose: 650 mg Aripiprazole (Abilify) 15 mg PO DAILY [facility] Stop: 09/19/18 08:59 Last Admin: 08/25/18 08:32 Dose: 15 mg Aspirin (Ecotrin Ectab) 81 mg PO QAM [facility] Stop: 09/19/18 08:59 Last Admin: 08/25/18 08:32 Dose: 81 mg Atorvastatin Calcium (Lipitor) 40 mg PO HS [facility] Stop: 09/18/18 20:59 Last Admin: 08/24/18 20:19 Dose: 40 mg Dextrose (Dextrose 50%) 25 - 50 ml IV UD PRN; Protocol PRN Reason: Hypoglycemia Protocol Stop: 09/18/18 14:59 Glucagon (Glucagen) 1 mg SQ UD PRN; Protocol PRN Reason: Hypoglycemia Protocol Stop: 09/18/18 14:59 Glucose (Glucose 40%) 15 - 30 gm PO UD PRN; Protocol PRN Reason: Hypoglycemia Protocol Stop: 09/18/18 14:59 Glucose (Dex4 Glucose) 4 - 8 tabs PO UD PRN; Protocol PRN Reason: Hypoglycemia Protocol Stop: 09/18/18 14:59 Heparin Sodium (Porcine) (Heparin Sodium (Porcine)) 5,000 units SQ Q12 [facility] Stop: 09/18/18 20:59 Last Admin: 08/25/18 08:39 Dose: 5,000 units Insulin Aspart (Novolog Flexpen) 0 units SC ACHS [facility] Stop: 09/18/18 16:29 Last Admin: 08/25/18 17:47 Dose: Not Given Lamotrigine (Lamictal) 50 mg PO BID [facility] Stop: 09/18/18 20:59 Last Admin: 08/25/18 08:31 Dose: 50 mg Lorazepam (Ativan) 0.5 mg PO TID PRN PRN Reason: Anxiety Stop: 09/18/18 14:59 Last Admin: 08/25/18 08:52 Dose: 0.5 mg Miscellaneous (Carbohydrates For Hypoglycemia) 15 - 30 gm PO UD PRN PRN Reason: Hypoglycemia Treatment Stop: 09/18/18 14:59 Nitroglycerin (Nitrostat) 0.4 mg SL UD PRN PRN Reason: Chest Pain Stop: 09/18/18 14:59 Pantoprazole Sodium (Protonix) 40 mg PO DAILY [facility] Stop: 09/19/18 08:59 Last Admin: 08/25/18 08:31 Dose: 40 mg Trazodone HCl (Desyrel) 100 mg PO DAILY [facility] Stop: 09/19/18 08:59 Last Admin: 08/25/18 08:31 Dose: 100 mg Resident Activity Tracking Resident Involvement: Resident Care Provided Care Provided: [facility] Medicine _ (1) Acute renal failure Acute renal failure type: unspecified Qualified Code(s): N17.9 - Acute kidney failure, unspecified
[2018-08-25] MEDS: ATORVASTATIN 40 MG TAB PO SCH (21:35)
[2018-08-26] MEDS: ACETAMINOPHEN 325 MG TAB PO PRN (02:05)
[2018-08-26] MEDS: LORazepam 0.5 MG TAB PO PRN (02:05)
[2018-08-26 07:12] LABS: BUN Creatinine Ratio 12.3 (10-20); Calcium 8.5 mg/dl (8.5-10.1); Creatinine Clr Calc Pharmacy 68.2 ml/min; Est GFR (African American) 77.3; Est GFR (Non-African American) 66.7; Potassium 3.5 mmol/L (3.5-5.1)
--- NOTE | 2018-08-26 08:38 | Neurology Progress Note ---
Date of Service August 26, 2018 Assessment & Plan (1) Ambulatory dysfunction: The patient has significant gait dysfunction and cannot ambulate on her own. Although she does have a little bit of proximal leg weakness left greater than right side I am more struck with her significant bradykinesia, rigidity, and gait disturbance all typical of parkinsonism. Her Abilify dose is quite high and this typically leads to parkinsonism. This is a significant parkinsonism. Unfortunately, we cannot get an MRI of the brain because of metal in her ear. She does not have any other focal neurologic findings and she really does not have any significant encephalopathy/delirium. Her mood is stable. (2) Severe depression: Patient has a history of depression and bipolar disorder. She seems to be doing fairly well in the hospital and just wants to go home. She is on lamotrigine as a mood stabilizer and trazodone. Recommendations: 1. Strongly recommend discontinuing Abilify. 2. Continue physical therapy and gait training. 3. I would defer to Psychiatry for any additional psychiatric medicines or changes off Abilify. Avoid lithium. 4. Otherwise, I have no further neurologic testing or treatment recommendations to make at this time. She could be followed as an outpatient by Dr. Gilliam. Otherwise, please contact me if I can be of further assistance on this case. Overall, I spent a total of 40 minutes with this case including review of records, direct evaluation the patient at bedside, and discussion of the case with the patient, clinical staff, and Dr. Jimenez including differential diagnosis and treatment options. Subjective End has some complaint of discomfort with her neck and low back and finds it difficult sometimes to be comfortable in bed in certain positions. She says that her dizziness is markedly improved particularly with standing up. She was getting vertiginous. Patient could not get an MRI of the brain because apparent metal in her left ear. Nursing reports no unusual activity overnight. Patient is afebrile and vital signs are stable. Chem profile yesterday was largely unremarkable and her calcium and magnesium were normal. Additional history reveals that she has been on high dose of Abilify for about a month at 30 milligrams daily. More recently she was cut back to 15 milligrams daily Physical Exam 2 Vital Signs (Past 24 Hours): Last Vital Signs Temp 36.6 C 08/26/18 06:28 Pulse 86 08/26/18 06:28 Resp 18 08/26/18 06:28 BP 143/84 H 08/26/18 06:28 Pulse Ox 95 08/26/18 06:28 Physical Exam: She is awake and alert. Her speech is soft and she mumbles. She is very hard of hearing and needs to be spoken to quite loudly for her to understand. She does not seem confused. She knew her name and the year. She followed one-step commands well and was cooperative. She had a masklike face with decreased blink rate. She had a mildly positive glabellar sign. There is no facial droop. Extraocular eye muscles were intact without nystagmus. Her neck was stiff in all directions. Patient had a mild resting tremor of the left foot. This dampened with activity. She had some generalized shaking intermittently of the arms but was not true resting tremor. With outstretched arm she had no drift and no ataxia with [id number] testing. She had no significant postural or action tremor bilaterally. Motor strength was 5/5 in the upper extremities bilaterally both proximally and distally. In the lower extremities, strength was 4/5 proximally on the left and 4+/5 proximally on the right and closer to 5/5 distally bilaterally. Toes were downgoing to plantar stimulation bilaterally. Reflexes seem 2/4 in all 4 limbs. She had considerable bradykinesia and rigidity of all 4 limbs, left greater than right side. The patient was very slow in getting up to a sitting position on her own very difficult for her to get to a standing position. She needs the assistance of 2 people. She could walk but she had slow shuffling steps and slow turns. There were no truncal titubations.
[2018-08-26] MEDS: TRAZODONE HCL 100 MG TAB PO SCH (09:02)
[2018-08-26] MEDS: ASPIRIN 81 MG ECTAB PO SCH (09:02)
[2018-08-26] MEDS: PANTOprazole 40 MG TAB PO SCH (09:02)
[2018-08-26] MEDS: lamoTRIgine 25 MG TAB PO SCH ×2 (09:02→20:04)
[2018-08-26] MEDS: ARIPiprazole 15 MG TAB PO SCH (09:03)
[2018-08-26] MEDS: INSULIN ASPART 100 UNITS/ML 3 ML PEN SC SCH ×4 (09:03→20:16)
[2018-08-26] MEDS: HEPARIN SOD 5,000 UNIT/0.5 ML VIAL SQ SCH ×2 (09:03→20:08)
--- NOTE | 2018-08-26 16:00 | Family Medicine Progress Note ---
Date of Service August 26, 2018 Assessment & Plan (1) Ambulatory dysfunction: 63yoF with hx of HTN, HLD, DM and severe recurrent major depression presented from the [facility] on 08/19 with diarrhea and altered mental status. She was found to have severe acute renal failure likely secondary to dehydration from diarrhea. Her troponin also uptrended and she had some EKG changes (unsure if old vs. new given lack of history/medical records) but likely due to supply demand mismatch in the setting of significant CAD changes. Recurrent fall/ambulatory dysfunction/weakness Patient very frustrated regarding inability to ambulate. Unable to participate with PT due to weakness. ?Related to antipsychotic (EPSE). Neurology consulted, appreciate recs: measure LFTs, Mg, Phos, CKk, ammonia, lamictal level, TSH, B12, MRI if concern for brain mass, stroke, etc. -- Electrolytes repleted, normal ammonia, nl TSH, B12 pending, LFTs overall normal (mild elevation of AST/ALT). Unfortunately patient unable to participate in MRI due to metal in her ear. - Continue PT/OT - Adjustments made to psych meds (see below) Severe depression/mood disorder: Home meds: lithium, trazodone, lamotrogine, aripiprazole (a new medication for patient in past few months), and lorazepam PRN Patient spent 30 days at [facility] in June 2018 where aripiprazole was purportedly started at 30 mg daily. Per outside records it appear she felt she was overmedicated, at one point stopping aripiprazole and presenting to [facility] with insomnia, where she was referred back to psychiatrist who decreased dose to 15mg. She has then since been seen at [facility] for anxiety when she was voluntarily 201'd and sent to the [facility]. Per records from the [facility], only medication change made while there was a reduction of lamotrigine to 50mg BID, from 100mg BID and d/c of lithium for ARF. Psych consulted, recs appreciated. - Continue holding lithium in the setting of ARF likely caused by diarrhea. May choose to resume in outpatient setting during outpatient psych f/up. - Trazodone switched to 100mg HS instead of 100mg qAM - Per discussion with psych Karen MCLAUGHLIN, PRN lorazepam held for possible contributor to lethargy/weakness - ordered 12.5mg hydroxyzine q4h PRN anxiety instead - Per discussion with psychiatrist, Dr. Best, aripiprazole reduced from 15mg to 10mg daily to help with improvement in movenent - Record release forms faxed to [facility] ( [place] [phone]) and [employer] (fax: [phone])f - awaiting outside facility records to direct further med adjustments Elevated troponin on bkgd of CAD + HLD + HTN Elevated troponin 0.47->0.34->0.159, EKG initially concerning, has since resolved. Has h/o CAD. ECHO: no wall motion abnl, EF 60-65%, grade 1 diastolic dysfunction Cardiology consulted, appreciate recs. No further workup needed at this time. - Started on aspirin and continue atorvastatin 40mg daily - Restart lisiniopril 08/27. Furosemide held for now, no evidence of fluid overload. Continue to monitor BP DMII - Hold home Januvia and metformin at home - Continue ISS here, BSG well controlled, continue to monitor GERD - Continue pantoprazole ARF in the setting of diarrhea, RESOLVED - BUN/Cr initially 93/5.6 with FeNA 0.7% --> now Cr normal. Abdominal CT: no renal calculi/hydronephrosis. No electrolyte abnormalities. Discontinued IVF - Hold home metformin, lisinopril, and furosemide - Trend BMP Diarrhea, RESOLVED No fever noted on EMR but pt was initially tachycardic. CT abdomen: concerning for diarrheal illness, no obstruction, C. diff negative. Blood cultures NG. Received zosyn empiric coverage initially - discontinued on 08/20. Discontinued IVF 08/22/18 FEN: heart health, DMII diet. No IVF. DVT prophylaxis: heparin Code: Full Dispo: Will need at minimum SNF/inpatient rehab for strength. Patient reluctantly amenable. Family are amenable to rehab prior to home. (2) Severe depression: (3) Diabetes: (4) CAD (coronary artery disease): (5) Hypertension: (6) Acute renal failure: (7) Elevated troponin: (8) Fever: (9) Colitis: (10) DVT prophylaxis: Supervising Physician Co-Signing Physician Notes Resident Physician Supervision Note: I independently interviewed and examined the patient and verified the alvarado history and physical, reviewed labs and image studies, discussed the case with the resident Dr. Mcknight and agree with the findings and care plan. Subjective Patient feels ok this morning. She is upset for being made to sit out of bed, and has been paging the nurse every 5 min to request being back in bed because she is tired. She states she is not sleeping well. She states she is not eating well because she does not like the food. She states she is too weak to walk. She denies CP, SOB, abdo pain. When asked why she is requiring Tylenol, she is unable to provide an answer. She denies any pain at present. She denies issues with voiding or stooling. Review of Systems All systems reviewed & are unremarkable except as noted in HPI & below Physical Exam 2 Vital Signs (Past 24 Hours): Last Vital Signs Temp 36.6 C 08/26/18 06:28 Pulse 86 08/26/18 06:28 Resp 18 08/26/18 06:28 BP 143/84 H 08/26/18 06:28 Pulse Ox 95 08/26/18 06:28 Physical Exam: Constitutional: WD/WN, vitals as above, NAD, + behavioral limitations Eyes: conjunctivae normal, anicteric sclerae ENMT: external ear and nose normal, oropharynx normal Neck: normal visual inspection Respiratory: normal respiratory effort, lungs clear to auscultation Cardiovascular: RRR, no murmur, no edema Gastrointestinal (Abdomen): normal bowel sounds, soft, nontender, no hepatosplenomegaly Musculoskeletal: Extremities: extremities normal to inspection Psychiatric: Orientation: alert Affect: + depressed affect, + flat affect, + depressed mood, + limited insight, + limited judgement Results & Data Laboratory Results Laboratory Results - last 24 hr 08/24/18 08/25/18 08/25/18 09:40 16:38 20:04 Sodium Potassium Chloride Carbon Dioxide Anion Gap BUN Creatinine Est Cr Clr Drug Dosing Est GFR ( Amer) Est GFR (Non-Af Amer) BUN/Creatinine Ratio Glucose POC Glucose 140 H 138 H Calcium Magnesium Lamotrigine 2.2 L 08/26/18 08/26/18 08/26/18 06:18 06:18 07:23 Sodium 140 Potassium 3.5 Chloride 110 H Carbon Dioxide 26 Anion Gap 4.0 BUN 11 Creatinine 0.92 Est Cr Clr Drug Dosing 68.2 Est GFR ( Amer) 77.3 Est GFR (Non-Af Amer) 66.7 BUN/Creatinine Ratio 12.3 Glucose 104 H POC Glucose 115 H Calcium 8.5 Magnesium 1.8 Lamotrigine 08/26/18 08/26/18 11:38 16:29 Sodium Potassium Chloride Carbon Dioxide Anion Gap BUN Creatinine Est Cr Clr Drug Dosing Est GFR ( Amer) Est GFR (Non-Af Amer) BUN/Creatinine Ratio Glucose POC Glucose 171 H 148 H Calcium Magnesium Lamotrigine Resident Activity Tracking Resident Involvement: Resident Care Provided Care Provided: [facility] Medicine _ (1) Acute renal failure Acute renal failure type: unspecified Qualified Code(s): N17.9 - Acute kidney failure, unspecified
[2018-08-26] MEDS: hydrOXYzine HCl 10 MG TAB PO PRN (20:03)
[2018-08-26] MEDS: ATORVASTATIN 40 MG TAB PO SCH (20:03)
[2018-08-27] MEDS: hydrOXYzine HCl 10 MG TAB PO PRN (00:26)
[2018-08-27] MEDS: ACETAMINOPHEN 325 MG TAB PO PRN (00:26)
[2018-08-27] MEDS: ASPIRIN 81 MG ECTAB PO SCH (09:39)
[2018-08-27] MEDS: LISINOPRIL 10 MG TAB PO SCH (09:39)
[2018-08-27] MEDS: ARIPiprazole 10 MG TAB PO SCH (09:39)
[2018-08-27] MEDS: HEPARIN SOD 5,000 UNIT/0.5 ML VIAL SQ SCH ×2 (09:40→20:18)
[2018-08-27] MEDS: PANTOprazole 40 MG TAB PO SCH (09:40)
[2018-08-27] MEDS: INSULIN ASPART 100 UNITS/ML 3 ML PEN SC SCH ×4 (09:40→20:19)
[2018-08-27] MEDS: lamoTRIgine 25 MG TAB PO SCH ×2 (09:40→20:17)
--- NOTE | 2018-08-27 11:16 | Family Medicine Progress Note ---
Date of Service August 27, 2018 Assessment & Plan (1) Ambulatory dysfunction: 63yoF with hx of HTN, HLD, DM and severe recurrent major depression presented from the [facility] on 08/19 with diarrhea and altered mental status. She was found to have severe acute renal failure likely secondary to dehydration from diarrhea. Her troponin also uptrended and she had some EKG changes (unsure if old vs. new given lack of history/medical records) but likely due to supply demand mismatch in the setting of significant CAD changes. Recurrent fall/ambulatory dysfunction/weakness Patient very frustrated regarding inability to ambulate. Unable to participate with PT due to weakness. ?Related to antipsychotic (EPSE). Neurology consulted, appreciate recs: measure LFTs, Mg, Phos, CKk, ammonia, lamictal level, TSH, B12, MRI if concern for brain mass, stroke, etc. -- Electrolytes repleted, normal ammonia, nl TSH, B12 pending, LFTs overall normal (mild elevation of AST/ALT). Unfortunately patient unable to participate in MRI due to metal in her ear. - Continue PT/OT - Adjustments made to psych meds (see below) Severe depression/mood disorder: Home meds: lithium, trazodone, lamotrogine, aripiprazole (a new medication for patient in past few months), and lorazepam PRN Patient spent 30 days at [facility] in June 2018 where aripiprazole was purportedly started at 30 mg daily. Per outside records it appear she felt she was overmedicated, at one point stopping aripiprazole and presenting to [facility] with insomnia, where she was referred back to psychiatrist who decreased dose to 15mg. She has then since been seen at [facility] for anxiety when she was voluntarily 201'd and sent to the [facility]. Per records from the [facility], only medication change made while there was a reduction of lamotrigine to 50mg BID, from 100mg BID and d/c of lithium for ARF. Psych consulted, recs appreciated. - Continue holding lithium in the setting of ARF likely caused by diarrhea. May choose to resume in outpatient setting during outpatient psych f/up. - Trazodone switched to 100mg HS instead of 100mg qAM - Per discussion with psych Karen MCLAUGHLIN, PRN lorazepam held for possible contributor to lethargy/weakness - ordered 12.5mg hydroxyzine q4h PRN anxiety instead - Per discussion with psychiatrist, Dr. Best, aripiprazole reduced from 15mg to 10mg daily - Record release forms faxed to [facility] ( [place] [phone]) and [employer] (fax: [phone])f - awaiting outside facility records to direct further med adjustments Elevated troponin on bkgd of CAD + HLD + HTN Elevated troponin 0.47->0.34->0.159, EKG initially concerning, has since resolved. Has h/o CAD. ECHO: no wall motion abnl, EF 60-65%, grade 1 diastolic dysfunction Cardiology consulted, appreciate recs. No further workup needed at this time. - Started on aspirin and continue atorvastatin 40mg daily - Restart lisiniopril 08/27. Furosemide held for now, no evidence of fluid overload. Continue to monitor BP DMII - Hold home Januvia and metformin at home - Continue ISS here, BSG well controlled, continue to monitor GERD - Continue pantoprazole ARF in the setting of diarrhea, RESOLVED - BUN/Cr initially 93/5.6 with FeNA 0.7% --> now Cr normal. Abdominal CT: no renal calculi/hydronephrosis. No electrolyte abnormalities. Discontinued IVF - Hold home metformin, lisinopril, and furosemide - Trend BMP Diarrhea, RESOLVED No fever noted on EMR but pt was initially tachycardic. CT abdomen: concerning for diarrheal illness, no obstruction, C. diff negative. Blood cultures NG. Received zosyn empiric coverage initially - discontinued on 08/20. Discontinued IVF 08/22/18 FEN: heart health, DMII diet. No IVF. DVT prophylaxis: heparin Code: Full Dispo: Will need at minimum SNF/inpatient rehab for strength. Patient reluctantly amenable. Family are amenable to rehab prior to home. (2) Severe depression: (3) Diabetes: (4) CAD (coronary artery disease): (5) Hypertension: (6) Acute renal failure: 63yoF with hx of HTN, HLD, DM and severe recurrent major depression presented from the [facility] on 08/19 with diarrhea and altered mental status. She was found to have severe acute renal failure likely secondary to dehydration. Her troponin also uptrended and she had some EKG changes (unsure if old vs. new given lack of history/medical records) but has now downtrended and EKG changes improved likely due to supply demand mismatch in the setting of significant CAD given she had dynamic EKG changes. Pt had been taking her home lasix, metformin , lisinopril and lithium as well AMS likely secondary to significant dehydration - improved, pt at baseline this AM -Head CT no acute abnormalities -Neuro checks ARF likely secondary to dehydration/pre-renal in the setting of diarrhea -BUN/Cr initially 93/5.6 -> 62/2.5 --> 1.24/31 -FeNA 0.7% -Abdominal CT: no renal calculi/hydronephrosis -No electrolyte abnormalities -Received 3L bolus initially + maintainance NS at 75mls/hr now -Hold home metformin and lisinopril -Nephrology consulted: likely pre-renal continue rehydration - given improvement signed off -monitor BMP ?fever, and diarrhea likely viral vs. bacterial - resolved -no fever noted on EMR but pt was initially tachycardic -CT abdomen: concerning for diarrheal illness, no obstruction -C. diff negative -WBC initially 20 but likely hemoconcentrated and normalized to 8 secondary to rehydration -Blood cultures NGTD -Received zosyn empiric coverage initially - discontinued on 08/20 as unlikely to be bacterial given significantly improved WBC, and normal inflammatory markers Elevated troponin - asymptomatic -Troponin 0.47->0.34->0.159 -EKG initially concerning for Q waves in inferior leads, and lateral Twave inversion; repeat: subtle V1, V2 st elevation and inverted T waves in II (no previous comparison EKG in previous or new [facility] ) --> normalized this AM CXR mild cardiomegaly -ECHO: no wall motion abnl, EF 60-65%, grade 1 diastolic dysfunction -Started on aspirin and atorvastatin 40mg daily -Cardiology consulted for concern of significant CAD given dynamic EKG changes DM -was on januvia and metformin at home -On SSI here -continue to monitor Severe depression/mood disorder: -Continued home trazodone, lamictal and abilify -holding lithium in the setting of ARF FEN/GI: protonix 40mg daily, low potassium diet, monitor and replete electrolytes as needed DVT prophylaxis: heparin Code: Full Dispo: pending clinical improvement likely back to the [facility] tomorrow - Patient would like to be discharged to [facility] (7) Elevated troponin: (8) Fever: (9) Colitis: 63yoF with hx of HTN, HLD, DM and severe recurrent major depression presented from the [facility] on 08/19 with diarrhea and altered mental status. She was found to have severe acute renal failure likely secondary to dehydration from diarrhea. Her troponin also uptrended and she had some EKG changes (unsure if old vs. new given lack of history/medical records) but likely due to supply demand mismatch in the setting of significant CAD changes. Severe depression/mood disorder: -Continued home trazodone, lamictal and abilify. Abilify is new medication for patient in past few months. -Patient spent 30 days at [facility] in June 2018 where abilify was purportedly started at 30 mg daily. -Per outside records it appear she felt she was overmedicated, at one point stopping abilify and presenting to [facility] with insomnia, where she was referred back to psychiatrist who decreased dose to 15mg. She has then since been seen at [facility] for anxiety when she was 201'd and sent to the [facility]. -Apparently only dose change made at [facility] cut lamictal to 50mg BID, unknown previous dose but will review records -Trazodone switched to HS instead of AM -holding lithium in the setting of ARF likely caused by diarrhea -Need to ensure close outpatient f/u with psych to manage restarting and monitoring of lithium. -Will call [facility] and [facility] in [facility](sp?) for records tomorrow Leg weakness -Patient very tfrustrated regarding inability to ambulate. -Unable to participate with PT due to weakness -?Related to antipsychotic (EPSE). -Neurology consulted, appreciate recs: measure LFTs, Mg, Phos, CKk, ammonia, lamictal level, TSH, B12, and check MRI if concern for brain mass, stroke, etc. -Electrolytes repleted, normal ammonia, nl TSH, B12 pending, LFTs overall normal (mild elevation of AST/ALT) -Unfortunately patient unable to participate in MRI due to metal in her ear. ARF in the setting of diarrhea, RESOLVED -BUN/Cr initially 93/5.6 -->now normal -FeNA 0.7% -Abdominal CT: no renal calculi/hydronephrosis -No electrolyte abnormalities -Discontinued IVF 08/22/18 -Hold home metformin and lisinopril -monitor BMP Diarrhea, RESOLVED -no fever noted on EMR but pt was initially tachycardic -CT abdomen: concerning for diarrheal illness, no obstruction, C. diff negative -Blood cultures NG -Received zosyn empiric coverage initially - discontinued on 08/20 Elevated troponin - asymptomatic -Troponin 0.47->0.34->0.159 -EKG initially concerning, has since resolved. Has h/o CAD. -ECHO: no wall motion abnl, EF 60-65%, grade 1 diastolic dysfunction -started on aspirin and atorvastatin 40mg daily -Cardiology consulted, appreciate recs. No further workup needed at this time. DM -was on januvia and metformin at home -On ISS here, well controlled -continue to monitor FEN/GI: protonix 40mg daily, low potassium diet, monitor and replete electrolytes as needed DVT prophylaxis: heparin Code: Full Dispo: Will need at minimum SNF/inpatient rehab for strength. Patient reluctantly amenable. Family are amenable to rehab prior to home. (10) DVT prophylaxis: Subjective Patient resting comfortably in bed this morning in no acute distress. Patient with flat affect, tremor, and minimally responsive. States she feels more fatigued than yesterday after med changes and cannot acknowledge any specific improvement. Denies any acute complaints. Review of Systems See HPI for pertinent positives and negatives. A total of ten systems were reviewed and were otherwise negative. Physical Exam 2 Vital Signs (Past 24 Hours): Last Vital Signs Temp 36.8 C 08/27/18 06:53 Pulse 104 H 08/27/18 06:53 Resp 18 08/27/18 06:53 BP 169/84 H 08/27/18 06:53 Pulse Ox 95 08/27/18 06:53 GENERAL: Awake, al ert, flat affect, in no distress HEN T: Normocephalic, atraumatic. EYES: Normal conjunctiv a. Sclera non-icte richard. NECK: Supple. RESPIRATORY: Manisha r to auscultation. CARDIAC: Regular rate, normal rhyth m. Extremities war m and well perfuse d. Pulses equal. A BDOMEN: Soft, non- distended. No tend erness to palpatio n. RECTAL: Deferr ed. MUSCULOSKELETA L: Chest examinati on reveals no tend erness. LOWER EXT REMITIES: Calves a re equal size bila terally and non-te nder. No edema. No discoloration. N EURO: Tremor in up per and lower extr emities SKIN: No r luz or jaundice no shreya. Resident Activity Tracking Resident Involvement: Resident Care Provided Care Provided: [facility] Medicine _ (1) Acute renal failure Acute renal failure type: unspecified Qualified Code(s): N17.9 - Acute kidney failure, unspecified
[2018-08-27] MEDS: TRAZODONE HCL 100 MG TAB PO SCH (20:17)
[2018-08-27] MEDS: ATORVASTATIN 40 MG TAB PO SCH (20:17)
[2018-08-28] MEDS: ACETAMINOPHEN 325 MG TAB PO PRN ×2 (05:14→20:18)
[2018-08-28] MEDS: ASPIRIN 81 MG ECTAB PO SCH (09:02)
[2018-08-28] MEDS: ARIPiprazole 10 MG TAB PO SCH (09:02)
[2018-08-28] MEDS: lamoTRIgine 25 MG TAB PO SCH ×2 (09:03→20:19)
[2018-08-28] MEDS: HEPARIN SOD 5,000 UNIT/0.5 ML VIAL SQ SCH ×2 (09:03→20:21)
[2018-08-28] MEDS: PANTOprazole 40 MG TAB PO SCH (09:03)
[2018-08-28] MEDS: INSULIN ASPART 100 UNITS/ML 3 ML PEN SC SCH ×4 (09:04→20:20)
[2018-08-28] MEDS: LISINOPRIL 10 MG TAB PO SCH (09:04)
--- NOTE | 2018-08-28 09:46 | Family Medicine Progress Note ---
Date of Service August 28, 2018 Assessment & Plan (1) Ambulatory dysfunction: 63yoF with hx of HTN, HLD, DM and severe recurrent major depression presented from the [facility] on 08/19 with diarrhea and altered mental status. She was found to have severe acute renal failure likely secondary to dehydration from diarrhea. Her troponin also uptrended and she had some EKG changes (unsure if old vs. new given lack of history/medical records) but likely due to supply demand mismatch in the setting of significant CAD changes. Recurrent fall/ambulatory dysfunction/weakness Patient very frustrated regarding inability to ambulate. Unable to participate with PT due to weakness. ?Related to antipsychotic (EPSE). Neurology consulted, appreciate recs: measure LFTs, Mg, Phos, CKk, ammonia, lamictal level, TSH, B12, MRI if concern for brain mass, stroke, etc. -- Electrolytes repleted, normal ammonia, nl TSH, B12 pending, LFTs overall normal (mild elevation of AST/ALT). Unfortunately patient unable to participate in MRI due to metal in her ear. - Continue PT/OT - Adjustments made to psych meds (see below) Severe depression/mood disorder: Home meds: lithium, trazodone, lamotrogine, aripiprazole (a new medication for patient in past few months), and lorazepam PRN Patient spent 30 days at [facility] in June 2018 where aripiprazole was purportedly started at 30 mg daily. Per outside records it appear she felt she was overmedicated, at one point stopping aripiprazole and presenting to [facility] with insomnia, where she was referred back to psychiatrist who decreased dose to 15mg. She has then since been seen at [facility] for anxiety when she was voluntarily 201'd and sent to the [facility]. Per records from the [facility], only medication change made while there was a reduction of lamotrigine to 50mg BID, from 100mg BID and d/c of lithium for ARF. Psych consulted, recs appreciated. - Continue holding lithium in the setting of ARF likely caused by diarrhea. May choose to resume in outpatient setting during outpatient psych f/up. - Trazodone switched to 100mg HS instead of 100mg qAM - Per discussion with psych Karen MCLAUGHLIN, PRN lorazepam held for possible contributor to lethargy/weakness - ordered 12.5mg hydroxyzine q4h PRN anxiety instead - Per discussion with psychiatrist, Dr. Best, aripiprazole reduced from 15mg to 10mg daily --> Further decrease to 5mg daily on 08/28/18 - Record release forms faxed to [facility] ( [place] [phone]) and [employer] (fax: [phone])f - awaiting outside facility records to direct further med adjustments Elevated troponin on bkgd of CAD + HLD + HTN Elevated troponin 0.47->0.34->0.159, EKG initially concerning, has since resolved. Has h/o CAD. ECHO: no wall motion abnl, EF 60-65%, grade 1 diastolic dysfunction Cardiology consulted, appreciate recs. No further workup needed at this time. - Started on aspirin and continue atorvastatin 40mg daily - Restart lisiniopril 08/27. Furosemide held for now, no evidence of fluid overload. Continue to monitor BP DMII - Hold home Januvia and metformin at home - Continue ISS here, BSG well controlled, continue to monitor GERD - Continue pantoprazole ARF in the setting of diarrhea, RESOLVED - BUN/Cr initially 93/5.6 with FeNA 0.7% --> now Cr normal. Abdominal CT: no renal calculi/hydronephrosis. No electrolyte abnormalities. Discontinued IVF - Hold home metformin, lisinopril, and furosemide - Trend BMP Diarrhea, RESOLVED No fever noted on EMR but pt was initially tachycardic. CT abdomen: concerning for diarrheal illness, no obstruction, C. diff negative. Blood cultures NG. Received zosyn empiric coverage initially - discontinued on 08/20. Discontinued IVF 08/22/18 FEN: heart health, DMII diet. No IVF. DVT prophylaxis: heparin Code: Full Dispo: Will need at minimum SNF/inpatient rehab for strength. Patient reluctantly amenable. Family are amenable to rehab prior to home. (2) Severe depression: (3) Diabetes: (4) CAD (coronary artery disease): (5) Hypertension: (6) Acute renal failure: 63yoF with hx of HTN, HLD, DM and severe recurrent major depression presented from the [facility] on 08/19 with diarrhea and altered mental status. She was found to have severe acute renal failure likely secondary to dehydration. Her troponin also uptrended and she had some EKG changes (unsure if old vs. new given lack of history/medical records) but has now downtrended and EKG changes improved likely due to supply demand mismatch in the setting of significant CAD given she had dynamic EKG changes. Pt had been taking her home lasix, metformin , lisinopril and lithium as well AMS likely secondary to significant dehydration - improved, pt at baseline this AM -Head CT no acute abnormalities -Neuro checks ARF likely secondary to dehydration/pre-renal in the setting of diarrhea -BUN/Cr initially 93/5.6 -> 62/2.5 --> 1.24/31 -FeNA 0.7% -Abdominal CT: no renal calculi/hydronephrosis -No electrolyte abnormalities -Received 3L bolus initially + maintainance NS at 75mls/hr now -Hold home metformin and lisinopril -Nephrology consulted: likely pre-renal continue rehydration - given improvement signed off -monitor BMP ?fever, and diarrhea likely viral vs. bacterial - resolved -no fever noted on EMR but pt was initially tachycardic -CT abdomen: concerning for diarrheal illness, no obstruction -C. diff negative -WBC initially 20 but likely hemoconcentrated and normalized to 8 secondary to rehydration -Blood cultures NGTD -Received zosyn empiric coverage initially - discontinued on 08/20 as unlikely to be bacterial given significantly improved WBC, and normal inflammatory markers Elevated troponin - asymptomatic -Troponin 0.47->0.34->0.159 -EKG initially concerning for Q waves in inferior leads, and lateral Twave inversion; repeat: subtle V1, V2 st elevation and inverted T waves in II (no previous comparison EKG in previous or new [facility] ) --> normalized this AM CXR mild cardiomegaly -ECHO: no wall motion abnl, EF 60-65%, grade 1 diastolic dysfunction -Started on aspirin and atorvastatin 40mg daily -Cardiology consulted for concern of significant CAD given dynamic EKG changes DM -was on januvia and metformin at home -On SSI here -continue to monitor Severe depression/mood disorder: -Continued home trazodone, lamictal and abilify -holding lithium in the setting of ARF FEN/GI: protonix 40mg daily, low potassium diet, monitor and replete electrolytes as needed DVT prophylaxis: heparin Code: Full Dispo: pending clinical improvement likely back to the [facility] tomorrow - Patient would like to be discharged to [facility] (7) Elevated troponin: (8) Fever: (9) Colitis: 63yoF with hx of HTN, HLD, DM and severe recurrent major depression presented from the [facility] on 08/19 with diarrhea and altered mental status. She was found to have severe acute renal failure likely secondary to dehydration from diarrhea. Her troponin also uptrended and she had some EKG changes (unsure if old vs. new given lack of history/medical records) but likely due to supply demand mismatch in the setting of significant CAD changes. Severe depression/mood disorder: -Continued home trazodone, lamictal and abilify. Abilify is new medication for patient in past few months. -Patient spent 30 days at [facility] in June 2018 where abilify was purportedly started at 30 mg daily. -Per outside records it appear she felt she was overmedicated, at one point stopping abilify and [facility], where she was referred back to psychiatrist who decreased dose to 15mg. She has then [facility] when she was 201'd and sent to the [facility]. -Apparently only dose change made at [facility] cut lamictal to 50mg BID, unknown previous dose but will review records -Trazodone switched to HS instead of AM -holding lithium in the setting of ARF likely caused by diarrhea -Need to ensure close outpatient f/u with psych to manage restarting and monitoring of lithium. -Will call [facility] and [facility] in [facility](sp?) for records tomorrow Leg weakness -Patient very tfrustrated regarding inability to ambulate. -Unable to participate with PT due to weakness -?Related to antipsychotic (EPSE). -Neurology consulted, appreciate recs: measure LFTs, Mg, Phos, CKk, ammonia, lamictal level, TSH, B12, and check MRI if concern for brain mass, stroke, etc. -Electrolytes repleted, normal ammonia, nl TSH, B12 pending, LFTs overall normal (mild elevation of AST/ALT) -Unfortunately patient unable to participate in MRI due to metal in her ear. ARF in the setting of diarrhea, RESOLVED -BUN/Cr initially 93/5.6 -->now normal -FeNA 0.7% -Abdominal CT: no renal calculi/hydronephrosis -No electrolyte abnormalities -Discontinued IVF 08/22/18 -Hold home metformin and lisinopril -monitor BMP Diarrhea, RESOLVED -no fever noted on EMR but pt was initially tachycardic -CT abdomen: concerning for diarrheal illness, no obstruction, C. diff negative -Blood cultures NG -Received zosyn empiric coverage initially - discontinued on 08/20 Elevated troponin - asymptomatic -Troponin 0.47->0.34->0.159 -EKG initially concerning, has since resolved. Has h/o CAD. -ECHO: no wall motion abnl, EF 60-65%, grade 1 diastolic dysfunction -started on aspirin and atorvastatin 40mg daily -Cardiology consulted, appreciate recs. No further workup needed at this time. DM -was on januvia and metformin at home -On ISS here, well controlled -continue to monitor FEN/GI: protonix 40mg daily, low potassium diet, monitor and replete electrolytes as needed DVT prophylaxis: heparin Code: Full Dispo: Will need at minimum SNF/inpatient rehab for strength. Patient reluctantly amenable. Family are amenable to rehab prior to home. (10) DVT prophylaxis: Supervising Physician Co-Signing Physician Notes I personally examined the patient and verified all alvarado points of history and exam, discussed case, and agree with decision making with Dr Jasso. She would like to go to SNF to be closer to family as soon as possible. She notes ongoing anxiety, but agrees it makes sense to slowly adjust her psychiatric meds given what she has been going through recently. Vitals noted, in general she is awake and alert, fatigued, no distress, less tremulous than yesterday Weaknessprobably relates to her psychiatric meds which are being readjusted. Continue to wean Abilify further, with goal of discontinuation, awaiting SNF, ideally in the next day or 2. Will need ongoing outpatient psych follow-up. Otherwise as above Subjective Patient resting comfortably in bed this morning in no acute distress. No acute complaints this morning. Physical Exam 2 Vital Signs (Past 24 Hours): Last Vital Signs Temp 37.3 C 08/28/18 08:00 Pulse 98 H 08/28/18 08:00 Resp 20 08/28/18 08:00 BP 157/88 H 08/28/18 08:00 Pulse Ox 96 08/28/18 08:00 GENERAL: Awake, al ert, in no distres s HENT: Normocepha lic, atraumatic. EYES: Normal conju nctiva. Sclera non -icteric. NECK: Carroll pple. RESPIRATORY: Clear to ausculta tion. CARDIAC: Reg ular rate, normal rhythm. ABDOMEN: Soft, non-distende d. No tenderness t o palpation. No re bound or guarding. No masses. RECTAL : Deferred. MUSCUL OSKELETAL: Chest e xamination reveals no tenderness. LO WER EXTREMITIES: C lazaro are equal si ze bilaterally and non-tender. No ed arpita. No discolorat ion. NEURO: Flat Affect, Slow Respo nses SKIN: No rash or jaundice noted . Resident Activity Tracking Resident Involvement: Resident Care Provided Care Provided: [facility] Medicine _ (1) Acute renal failure Acute renal failure type: unspecified Qualified Code(s): N17.9 - Acute kidney failure, unspecified
[2018-08-28] MEDS: TRAZODONE HCL 100 MG TAB PO SCH (20:18)
[2018-08-28] MEDS: ATORVASTATIN 40 MG TAB PO SCH (20:19)
[2018-08-28] MEDS: hydrOXYzine HCl 10 MG TAB PO PRN (23:39)
[2018-08-29] MEDS: ACETAMINOPHEN 325 MG TAB PO PRN ×3 (06:20→20:40)
[2018-08-29] MEDS: hydrOXYzine HCl 10 MG TAB PO PRN ×2 (08:30→20:44)
[2018-08-29] MEDS: ASPIRIN 81 MG ECTAB PO SCH (08:30)
[2018-08-29] MEDS: LISINOPRIL 10 MG TAB PO SCH (08:31)
[2018-08-29] MEDS: HEPARIN SOD 5,000 UNIT/0.5 ML VIAL SQ SCH ×2 (08:32→20:35)
[2018-08-29] MEDS: PANTOprazole 40 MG TAB PO SCH (08:32)
[2018-08-29] MEDS: lamoTRIgine 25 MG TAB PO SCH ×2 (08:32→20:33)
[2018-08-29] MEDS: INSULIN ASPART 100 UNITS/ML 3 ML PEN SC SCH ×4 (08:33→20:35)
[2018-08-29] MEDS ORDERED: ARIPiprazole 5 MG TAB PO SCH (09:00)
[2018-08-29] MEDS: ARIPIprazole 1 MG/ML ORAL SOLN 150 ML BTL PO SCH (10:43)
--- NOTE | 2018-08-29 14:31 | Family Medicine Progress Note ---
Date of Service August 29, 2018 Assessment & Plan (1) Ambulatory dysfunction: 63yoF with hx of HTN, HLD, DM and severe recurrent major depression presented from the [facility] on 08/19 with diarrhea and altered mental status. She was found to have severe acute renal failure likely secondary to dehydration from diarrhea. Her troponin also uptrended and she had some EKG changes (unsure if old vs. new given lack of history/medical records) but likely due to supply demand mismatch in the setting of significant CAD changes. Recurrent fall/ambulatory dysfunction/weakness Patient very frustrated regarding inability to ambulate. Unable to participate with PT due to weakness. ?Related to antipsychotic (EPSE). Neurology consulted, appreciate recs: -- Electrolytes repleted, normal ammonia , nl TSH, B12 normal, LFTs overall normal (mild elevation of AST/ALT). Unfortunately patient unable to participate in MRI due to metal in her ear. - Continue PT/OT - Adjustments made to psych meds (see below) Severe depression/mood disorder: Home meds: lithium, trazodone, lamotrogine, aripiprazole (a new medication for patient in past few months), and lorazepam PRN Patient spent 30 days at [facility] [place], operated by [facility] in June 2018 where aripiprazole was purportedly started at 30 mg daily. Per outside records it appears she felt she was overmedicated, at one point stopping aripiprazole and presenting to [facility] with insomnia, where she was referred back to psychiatrist who decreased dose to 15mg. She has then since been seen at [facility] for anxiety when she was voluntarily 201'd and sent to the [facility]. Per records from the [facility], only medication change made while there was a reduction of lamotrigine to 50mg BID, (from 100mg BID) and d/c of lithium for ARF. Psych consulted, recs appreciated. - Continue holding lithium in the setting of ARF likely caused by diarrhea. May choose to resume in outpatient setting during outpatient psych f/up. - Trazodone switched to 100mg HS instead of 100mg qAM - Per discussion with psych Karen MCLAUGHLIN, PRN lorazepam held for possible contributor to lethargy/weakness - ordered 12.5mg hydroxyzine q4h PRN anxiety instead - Per discussion with psychiatrist, Dr. Best, aripiprazole reduced from 15mg to 10mg daily --> Further decrease to 5mg daily on 08/28/18 and decreased to 2mg on 08/29/18 - Record release forms faxed to [facility] ( [place] [phone]) and [facility]. (fax: [phone]) - awaiting outside facility records to direct further med adjustments Elevated troponin on bkgd of CAD + HLD + HTN Elevated troponin 0.47->0.34->0.159, EKG initially concerning, has since resolved. Has h/o CAD. ECHO: no wall motion abnl, EF 60-65%, grade 1 diastolic dysfunction Cardiology consulted, appreciate recs. No further workup needed at this time. - Started on aspirin and continue atorvastatin 40mg daily - Restart lisiniopril 08/27. Furosemide held for now, no evidence of fluid overload. Continue to monitor BP DMII - Hold home Januvia and metformin at home - Continue ISS here, BSG well controlled, continue to monitor GERD - Continue pantoprazole ARF in the setting of diarrhea, RESOLVED - BUN/Cr initially 93/5.6 with FeNA 0.7% --> now Cr normal. Abdominal CT: no renal calculi/hydronephrosis. No electrolyte abnormalities. Discontinued IVF - Hold home metformin, lisinopril, and furosemide - Trend BMP Diarrhea, RESOLVED No fever noted on EMR but pt was initially tachycardic. CT abdomen: concerning for diarrheal illness, no obstruction, C. diff negative. Blood cultures NG. Received zosyn empiric coverage initially - discontinued on 08/20. Discontinued IVF 08/22/18 FEN: heart health, DMII diet. No IVF. DVT prophylaxis: heparin Code: Full Dispo: Will need at minimum SNF/inpatient rehab for strength. Patient reluctantly amenable. Family are amenable to rehab prior to home. Most recent update from indicates 08/31-09/01 approval (2) Severe depression: (3) Diabetes: (4) CAD (coronary artery disease): (5) Hypertension: (6) Acute renal failure: (7) Elevated troponin: (8) Fever: (9) Colitis: (10) DVT prophylaxis: Supervising Physician Co-Signing Physician Notes I personally examined the patient and verified all alvarado points of history and exam, discussed case, and agree with decision making with Dr Ge. Still waiting on SNF placement. Vitals noted, resting comfortably no distress. Weaknessprobably relates to her psychiatric meds which are being readjusted. Continue to wean Abilify further, with goal of discontinuation, reduce to 2 mg tonight., awaiting SNF. Definitely needs ongoing psych follow-up. Anxietyongoing psych follow-up as well Subjective Patient resting comfortably in bed this morning in no acute distress. No acute complaints this morning. She states that her anxiety level is better than it has been in the past week. She does not think she is more alert or more awake since changing her meds Physical Exam 2 Vital Signs (Past 24 Hours): Last Vital Signs Temp 36.7 C 08/29/18 07:59 Pulse 81 08/29/18 07:59 Resp 18 08/29/18 07:59 BP 138/76 08/29/18 07:59 Pulse Ox 95 08/29/18 07:59 Constitutional: WD/WN, vitals as above + obese and + behavioral limitations Eyes: PERRL, conjunctivae normal, anicteric sclerae ENMT: external ear and nose normal, oropharynx normal Neck: normal visual inspection Respiratory: normal respiratory effort, lungs clear to auscultation Cardiovascular: RRR, no murmur, no edema Gastrointestinal (Abdomen): normal bowel sounds, soft, nontender, no hepatosplenomegaly Musculoskeletal: Extremities: extremities normal to inspection Psychiatric: Orientation: alert Affect: + depressed affect and + flat affect Mood: + depressed mood Insight: + limited insight Judgement: + limited judgement Results & Data Laboratory Results 08/29/18 08/29/18 08/28/18 Range/Units 11:36 07:31 20:07 POC Glucose 172 H 143 H 144 H (70-99) 08/28/18 Range/Units 16:31 POC Glucose 138 H (70-99) Medications Administered Current Inpatient Medications Acetaminophen (Tylenol) 650 mg PO Q4H PRN PRN Reason: Pain or Fever Stop: 09/18/18 14:59 Last Admin: 08/29/18 06:20 Dose: 650 mg Aripiprazole (Abilify) 2 mg PO DAILY [facility] Stop: 09/28/18 08:59 Last Admin: 08/29/18 10:43 Dose: 2 mg Aspirin (Ecotrin Ectab) 81 mg PO QAM [facility] Stop: 09/19/18 08:59 Last Admin: 08/29/18 08:30 Dose: 81 mg Atorvastatin Calcium (Lipitor) 40 mg PO HS [facility] Stop: 09/18/18 20:59 Last Admin: 08/28/18 20:19 Dose: 40 mg Dextrose (Dextrose 50%) 25 - 50 ml IV UD PRN; Protocol PRN Reason: Hypoglycemia Protocol Stop: 09/18/18 14:59 Glucagon (Glucagen) 1 mg SQ UD PRN; Protocol PRN Reason: Hypoglycemia Protocol Stop: 09/18/18 14:59 Glucose (Glucose 40%) 15 - 30 gm PO UD PRN; Protocol PRN Reason: Hypoglycemia Protocol Stop: 09/18/18 14:59 Glucose (Dex4 Glucose) 4 - 8 tabs PO UD PRN; Protocol PRN Reason: Hypoglycemia Protocol Stop: 09/18/18 14:59 Heparin Sodium (Porcine) (Heparin Sodium (Porcine)) 5,000 units SQ Q12 [facility] Stop: 09/18/18 20:59 Last Admin: 08/29/18 08:32 Dose: 5,000 units Hydroxyzine HCl (Vistaril) 10 mg PO Q4H PRN PRN Reason: Anxiety Stop: 09/25/18 11:54 Last Admin: 08/29/18 08:30 Dose: 10 mg Insulin Aspart (Novolog Flexpen) 0 units SC ACHS [facility] Stop: 09/18/18 16:29 Last Admin: 08/29/18 12:44 Dose: 2 units Lamotrigine (Lamictal) 50 mg PO BID [facility] Stop: 09/18/18 20:59 Last Admin: 08/29/18 08:32 Dose: 50 mg Lisinopril (Zestril) 10 mg PO DAILY [facility] Stop: 09/26/18 08:59 Last Admin: 08/29/18 08:31 Dose: 10 mg Lorazepam (Ativan) 0.5 mg PO TID PRN PRN Reason: Anxiety Stop: 09/18/18 14:59 Last Admin: 08/26/18 02:05 Dose: 0.5 mg Miscellaneous (Carbohydrates For Hypoglycemia) 15 - 30 gm PO UD PRN PRN Reason: Hypoglycemia Treatment Stop: 09/18/18 14:59 Nitroglycerin (Nitrostat) 0.4 mg SL UD PRN PRN Reason: Chest Pain Stop: 09/18/18 14:59 Pantoprazole Sodium (Protonix) 40 mg PO DAILY [facility] Stop: 09/19/18 08:59 Last Admin: 08/29/18 08:32 Dose: 40 mg Trazodone HCl (Desyrel) 100 mg PO HS [facility] Stop: 09/26/18 20:59 Last Admin: 08/28/18 20:18 Dose: 100 mg Resident Activity Tracking Resident Involvement: Resident Care Provided Care Provided: [facility] _ (1) Acute renal failure Acute renal failure type: unspecified Qualified Code(s): N17.9 - Acute kidney failure, unspecified
[2018-08-29] MEDS: TRAZODONE HCL 100 MG TAB PO SCH (20:33)
[2018-08-29] MEDS: ATORVASTATIN 40 MG TAB PO SCH (20:34)
[2018-08-30] MEDS: hydrOXYzine HCl 10 MG TAB PO PRN ×3 (05:23→20:19)
[2018-08-30] MEDS: LISINOPRIL 10 MG TAB PO SCH (08:00)
[2018-08-30] MEDS: INSULIN ASPART 100 UNITS/ML 3 ML PEN SC SCH ×4 (08:02→20:21)
[2018-08-30] MEDS: lamoTRIgine 25 MG TAB PO SCH ×2 (08:03→20:20)
[2018-08-30] MEDS: HEPARIN SOD 5,000 UNIT/0.5 ML VIAL SQ SCH ×2 (08:03→20:24)
[2018-08-30] MEDS: PANTOprazole 40 MG TAB PO SCH (08:03)
[2018-08-30] MEDS: ARIPIprazole 1 MG/ML ORAL SOLN 150 ML BTL PO SCH (08:04)
[2018-08-30] MEDS: ASPIRIN 81 MG ECTAB PO SCH (08:04)
--- NOTE | 2018-08-30 09:24 | Family Medicine Progress Note ---
Date of Service August 30, 2018 Assessment & Plan (1) Ambulatory dysfunction: 63yoF with hx of HTN, HLD, DM and severe recurrent major depression presented from the [facility] on 08/19 with diarrhea and altered mental status. She was found to have severe acute renal failure likely secondary to dehydration from diarrhea. Her troponin also uptrended and she had some EKG changes (unsure if old vs. new given lack of history/medical records) but likely due to supply demand mismatch in the setting of significant CAD changes. Recurrent fall/ambulatory dysfunction/weakness Patient very frustrated regarding inability to ambulate. Difficulty participating with PT due to weakness. ?Related to antipsychotic (EPSE). Neurology consulted, appreciate recs: -- Electrolytes repleted, normal ammonia , nl TSH, B12 normal, LFTs overall normal (mild elevation of AST/ALT). Unfortunately patient unable to participate in MRI due to metal in her ear. - Continue PT/OT - Adjustments made to psych meds (see below) Severe depression/mood disorder: Home meds: lithium, trazodone, lamotrogine, aripiprazole (a new medication for patient in past few months), and lorazepam PRN Patient spent 30 days at [facility] in June 2018 where aripiprazole was purportedly started at 30 mg daily. Per outside records it appears she felt she was overmedicated, at one point stopping aripiprazole and presenting to [facility] with insomnia, where she was referred back to psychiatrist who decreased dose to 15mg. She has then since been seen at [facility] for anxiety when she was voluntarily 201'd and sent to the [facility]. Per records from the [facility], only medication change made while there was a reduction of lamotrigine to 50mg BID, (from 100mg BID) and d/c of lithium for ARF. Psych consulted, recs appreciated. - Continue holding lithium in the setting of ARF likely caused by diarrhea. May choose to resume in outpatient setting during outpatient psych f/up. - Trazodone switched to 100mg HS instead of 100mg qAM - Per discussion with psych Karen MCLAUGHLIN, PRN lorazepam held for possible contributor to lethargy/weakness - ordered 12.5mg hydroxyzine q4h PRN anxiety instead - Per discussion with psychiatrist, Dr. Best, aripiprazole reduced from 15mg to 10mg daily --> Further decrease to 5mg daily on 08/28/18 and decreased to 2mg on 08/29/18 - Record release forms faxed to [facility] ( [place] [phone]) and [employer] (fax: [phone]) - awaiting outside facility records to direct further med adjustments Elevated troponin on bkgd of CAD + HLD + HTN Elevated troponin 0.47->0.34->0.159, EKG initially concerning, has since resolved. Has h/o CAD. ECHO: no wall motion abnl, EF 60-65%, grade 1 diastolic dysfunction Cardiology consulted, appreciate recs. No further workup needed at this time. - Started on aspirin and continue atorvastatin 40mg daily - Restart lisinopril 08/27. Furosemide held for now, no evidence of fluid overload. Continue to monitor BP DMII - Hold home Januvia and metformin at home - Continue ISS here, BSG well controlled, continue to monitor GERD - Continue pantoprazole ARF in the setting of diarrhea, RESOLVED - BUN/Cr initially 93/5.6 with FeNA 0.7% --> now Cr normal. Abdominal CT: no renal calculi/hydronephrosis. No electrolyte abnormalities. Discontinued IVF - Hold home metformin, lisinopril, and furosemide - Trend BMP Diarrhea, RESOLVED No fever noted on EMR but pt was initially tachycardic. CT abdomen: concerning for diarrheal illness, no obstruction, C. diff negative. Blood cultures NG. Received zosyn empiric coverage initially - discontinued on 08/20. Discontinued IVF 08/22/18 FEN: heart health, DMII diet. No IVF. DVT prophylaxis: heparin Code: Full Dispo: Will need at minimum SNF/inpatient rehab for strength. Patient reluctantly amenable. Family are amenable to rehab prior to home. Most recent update from indicates 08/31-09/01 approval date hopefully (2) Severe depression: (3) Diabetes: (4) CAD (coronary artery disease): (5) Hypertension: (6) Elevated troponin: (7) Fever: (8) Colitis: (9) DVT prophylaxis: Supervising Physician Co-Signing Physician Notes I personally examined the patient and verified all alvarado points of history and exam, discussed case, and agree with decision making with Dr Ge. Feeling anxious, but mostly wants to get out of the hospital to go to SNF closer to home. Vitals noted, resting comfortably no distress. Weaknessprobably relates to her psychiatric meds which are being readjusted. Psych awaiting records from outside facilities to be L to make further recommendations. Continue meds at current doses for now.. Definitely needs ongoing psych follow-up. Anxietyongoing psych follow-up as well, as above Subjective Patient states she is "not good" this morning. She states she doesn't care about anybody or anything. Denies SI/HI/PDW. Reports she had a panic attack overnight, and thinks that the meds she was given did help this. She states she wants a new body. She is "tired of all of this". Reports therapy has been going better, has been able to walk to bathroom and back. She wants to go home. Denies dyspnea, chest pain, diarrhea, nausea, vomiting, calf pain, peripheral edema. Physical Exam 2 Vital Signs (Past 24 Hours): Last Vital Signs Temp 36.7 C 08/30/18 07:21 Pulse 77 08/30/18 07:21 Resp 20 08/30/18 07:21 BP 127/72 08/30/18 07:21 Pulse Ox 95 08/30/18 07:21 Constitutional: WD/WN, vitals as above + obese and + behavioral limitations Eyes: PERRL, conjunctivae normal, anicteric sclerae ENMT: external ear and nose normal, oropharynx normal Neck: normal visual inspection Respiratory: normal respiratory effort, lungs clear to auscultation Cardiovascular: RRR, no murmur, no edema Gastrointestinal (Abdomen): normal bowel sounds, soft, nontender, no hepatosplenomegaly Musculoskeletal: Extremities: extremities normal to inspection and + lower leg abnormality Bilateral (Tremulous extremities) Skin: no rashes, warm and dry Psychiatric: Orientation: alert Affect: + depressed affect and + flat affect Mood: + depressed mood Insight: + limited insight Judgement: + limited judgement Results & Data Laboratory Results 08/30/18 08/29/18 08/29/18 Range/Units 07:35 20:24 16:30 POC Glucose 153 H 148 H 184 H (70-99) 08/29/18 Range/Units 11:36 POC Glucose 172 H (70-99) Medications Administered Current Inpatient Medications Acetaminophen (Tylenol) 650 mg PO Q4H PRN PRN Reason: Pain or Fever Stop: 09/18/18 14:59 Last Admin: 08/29/18 20:40 Dose: 650 mg Aripiprazole (Abilify) 2 mg PO DAILY [facility] Stop: 09/28/18 08:59 Last Admin: 08/30/18 08:04 Dose: 2 mg Aspirin (Ecotrin Ectab) 81 mg PO QAM [facility] Stop: 09/19/18 08:59 Last Admin: 08/30/18 08:04 Dose: 81 mg Atorvastatin Calcium (Lipitor) 40 mg PO HS [facility] Stop: 09/18/18 20:59 Last Admin: 08/29/18 20:34 Dose: 40 mg Dextrose (Dextrose 50%) 25 - 50 ml IV UD PRN; Protocol PRN Reason: Hypoglycemia Protocol Stop: 09/18/18 14:59 Glucagon (Glucagen) 1 mg SQ UD PRN; Protocol PRN Reason: Hypoglycemia Protocol Stop: 09/18/18 14:59 Glucose (Glucose 40%) 15 - 30 gm PO UD PRN; Protocol PRN Reason: Hypoglycemia Protocol Stop: 09/18/18 14:59 Glucose (Dex4 Glucose) 4 - 8 tabs PO UD PRN; Protocol PRN Reason: Hypoglycemia Protocol Stop: 09/18/18 14:59 Heparin Sodium (Porcine) (Heparin Sodium (Porcine)) 5,000 units SQ Q12 [facility] Stop: 09/18/18 20:59 Last Admin: 08/30/18 08:03 Dose: 5,000 units Hydroxyzine HCl (Vistaril) 10 mg PO Q4H PRN PRN Reason: Anxiety Stop: 09/25/18 11:54 Last Admin: 08/30/18 05:23 Dose: 10 mg Insulin Aspart (Novolog Flexpen) 0 units SC ACHS [facility] Stop: 09/18/18 16:29 Last Admin: 08/30/18 08:02 Dose: 1 units Lamotrigine (Lamictal) 50 mg PO BID [facility] Stop: 09/18/18 20:59 Last Admin: 08/30/18 08:03 Dose: 50 mg Lisinopril (Zestril) 10 mg PO DAILY [facility] Stop: 09/26/18 08:59 Last Admin: 08/30/18 08:00 Dose: 10 mg Lorazepam (Ativan) 0.5 mg PO TID PRN PRN Reason: Anxiety Stop: 09/18/18 14:59 Last Admin: 08/26/18 02:05 Dose: 0.5 mg Miscellaneous (Carbohydrates For Hypoglycemia) 15 - 30 gm PO UD PRN PRN Reason: Hypoglycemia Treatment Stop: 09/18/18 14:59 Nitroglycerin (Nitrostat) 0.4 mg SL UD PRN PRN Reason: Chest Pain Stop: 09/18/18 14:59 Pantoprazole Sodium (Protonix) 40 mg PO DAILY [facility] Stop: 09/19/18 08:59 Last Admin: 08/30/18 08:03 Dose: 40 mg Trazodone HCl (Desyrel) 100 mg PO HS [facility] Stop: 09/26/18 20:59 Last Admin: 08/29/18 20:33 Dose: 100 mg Resident Activity Tracking Resident Involvement: Resident Care Provided Care Provided: [facility]
[2018-08-30] MEDS: TRAZODONE HCL 100 MG TAB PO SCH (20:19)
[2018-08-30] MEDS: ATORVASTATIN 40 MG TAB PO SCH (20:19)
[2018-08-31] MEDS: ACETAMINOPHEN 325 MG TAB PO PRN ×2 (05:42→20:18)
[2018-08-31] MEDS: hydrOXYzine HCl 10 MG TAB PO PRN ×3 (05:42→23:45)
[2018-08-31] MEDS: lamoTRIgine 25 MG TAB PO SCH ×2 (08:51→20:18)
[2018-08-31] MEDS: PANTOprazole 40 MG TAB PO SCH (08:51)
[2018-08-31] MEDS: ARIPIprazole 1 MG/ML ORAL SOLN 150 ML BTL PO SCH (08:52)
[2018-08-31] MEDS: LISINOPRIL 10 MG TAB PO SCH (08:52)
[2018-08-31] MEDS: HEPARIN SOD 5,000 UNIT/0.5 ML VIAL SQ SCH ×2 (08:52→20:20)
[2018-08-31] MEDS: ASPIRIN 81 MG ECTAB PO SCH (08:52)
[2018-08-31] MEDS: INSULIN ASPART 100 UNITS/ML 3 ML PEN SC SCH ×4 (08:53→21:34)
--- NOTE | 2018-08-31 14:46 | Family Medicine Progress Note ---
Date of Service August 31, 2018 Assessment & Plan (1) Ambulatory dysfunction: 63yoF with hx of HTN, HLD, DM and severe recurrent major depression presented from the [facility] on 08/19 with diarrhea and altered mental status. She was found to have severe acute renal failure likely secondary to dehydration from diarrhea. Her troponin also uptrended and she had some EKG changes (unsure if old vs. new given lack of history/medical records) but likely due to supply demand mismatch in the setting of significant CAD changes. Recurrent fall/ambulatory dysfunction/weakness Patient very frustrated regarding inability to ambulate. Difficulty participating with PT due to weakness. ?Related to antipsychotic (EPSE). Neurology consulted, appreciate recs: -- Electrolytes repleted, normal ammonia , nl TSH, B12 normal, LFTs overall normal (mild elevation of AST/ALT). Unfortunately patient unable to participate in MRI due to metal in her ear. - Continue PT/OT - Adjustments made to psych meds (see below) Severe depression/mood disorder: Home meds: lithium, trazodone, lamotrogine, aripiprazole (a new medication for patient in past few months), and lorazepam PRN Patient spent 30 days at [facility] in June 2018 where aripiprazole was purportedly started at 30 mg daily. Per outside records it appears she felt she was overmedicated, at one point stopping aripiprazole and presenting to [facility] with insomnia, where she was referred back to psychiatrist who decreased dose to 15mg. She has then since been seen at [facility] for anxiety when she was voluntarily 201'd and sent to the [facility]. Per records from the [facility], only medication change made while there was a reduction of lamotrigine to 50mg BID, (from 100mg BID) and d/c of lithium for ARF. Psych consulted, recs appreciated. - Continue holding lithium in the setting of ARF likely caused by diarrhea. May choose to resume in outpatient setting during outpatient psych f/up. - Trazodone switched to 100mg HS instead of 100mg qAM - Per discussion with psych Karen MCLAUGHLIN, PRN lorazepam held for possible contributor to lethargy/weakness - ordered 12.5mg hydroxyzine q4h PRN anxiety instead - Per discussion with psychiatrist, Dr. Best, aripiprazole reduced from 15mg to 10mg daily --> Further decrease to 5mg daily on 08/28/18 and decreased to 2mg on 08/29/18 - Record release [facility] ( [place] [phone]) and [employer] (fax: [phone]) - awaiting outside facility records to direct further med adjustments Elevated troponin on bkgd of CAD + HLD + HTN Elevated troponin 0.47->0.34->0.159, EKG initially concerning, has since resolved. Has h/o CAD. ECHO: no wall motion abnl, EF 60-65%, grade 1 diastolic dysfunction Cardiology consulted, appreciate recs. No further workup needed at this time. - Started on aspirin and continue atorvastatin 40mg daily - Restart lisinopril 08/27. Furosemide held for now, no evidence of fluid overload. Continue to monitor BP DMII - Hold home Januvia and metformin at home - Continue ISS here, BSG well controlled, continue to monitor GERD - Continue pantoprazole ARF in the setting of diarrhea, RESOLVED - BUN/Cr initially 93/5.6 with FeNA 0.7% --> now Cr normal. Abdominal CT: no renal calculi/hydronephrosis. No electrolyte abnormalities. Discontinued IVF - Hold home metformin, lisinopril, and furosemide - Trend BMP Diarrhea, RESOLVED No fever noted on EMR but pt was initially tachycardic. CT abdomen: concerning for diarrheal illness, no obstruction, C. diff negative. Blood cultures NG. Received zosyn empiric coverage initially - discontinued on 08/20. Discontinued IVF 08/22/18 FEN: heart healthy, DMII diet. No IVF. DVT prophylaxis: heparin Code: Full Dispo: Ok for DC to rehab tomorrow AM, 09/01 (2) Severe depression: (3) Diabetes: (4) CAD (coronary artery disease): (5) Hypertension: (6) Elevated troponin: (7) Fever: (8) Colitis: (9) DVT prophylaxis: Supervising Physician Co-Signing Physician Notes I personally examined the patient and verified all alvarado points of history and exam, discussed case, and agree with decision making with Dr Ge. No new problems. Still awaiting placement Vitals noted, resting comfortably no distress. Weaknessprobably relates to her psychiatric meds which are being readjusted. Ongoing PT and OT at SNF to be done as soon as it can be arranged Anxietyongoing psych follow-up as well, as above Subjective Patient states she is "not good" this morning. She states she doesn't care about anybody or anything. Denies SI/HI/PDW. Reports she continues to have panic attacks overnight, and thinks that the meds she was given did help this. She is teary-eyed today and "tired of all of this" and that she wants to go home. Denies dyspnea, chest pain, diarrhea, nausea, vomiting, calf pain, peripheral edema. Physical Exam 2 Vital Signs (Past 24 Hours): Last Vital Signs Temp 36.8 C 08/31/18 13:09 Pulse 67 08/31/18 13:09 Resp 18 08/31/18 13:09 BP 145/75 H 08/31/18 13:09 Pulse Ox 94 08/31/18 13:09 Constitutional: WD/WN, vitals as above + obese and + behavioral limitations Eyes: PERRL, conjunctivae normal, anicteric sclerae ENMT: external ear and nose normal, oropharynx normal Neck: normal visual inspection Respiratory: normal respiratory effort, lungs clear to auscultation Cardiovascular: RRR, no murmur, no edema Gastrointestinal (Abdomen): normal bowel sounds, soft, nontender, no hepatosplenomegaly Musculoskeletal: Extremities: extremities normal to inspection and + lower leg abnormality Skin: no rashes, warm and dry Neurologic: tremulous Psychiatric: Orientation: alert Affect: + depressed affect and + flat affect Mood: + depressed mood Insight: + limited insight Judgement: + limited judgement Results & Data Laboratory Results 08/31/18 08/31/18 08/30/18 Range/Units 11:22 07:33 20:20 POC Glucose 151 H 138 H 134 H (70-99) 08/30/18 Range/Units 16:57 POC Glucose 123 H (70-99) Medications Administered Current Inpatient Medications Acetaminophen (Tylenol) 650 mg PO Q4H PRN PRN Reason: Pain or Fever Stop: 09/18/18 14:59 Last Admin: 08/31/18 05:42 Dose: 650 mg Aripiprazole (Abilify) 2 mg PO DAILY CHAYITO Stop: 09/28/18 08:59 Last Admin: 08/31/18 08:52 Dose: 2 mg Aspirin (Ecotrin Ectab) 81 mg PO QAM CHAYITO Stop: 09/19/18 08:59 Last Admin: 08/31/18 08:52 Dose: 81 mg Atorvastatin Calcium (Lipitor) 40 mg PO HS CHAYITO Stop: 09/18/18 20:59 Last Admin: 08/30/18 20:19 Dose: 40 mg Dextrose (Dextrose 50%) 25 - 50 ml IV UD PRN; Protocol PRN Reason: Hypoglycemia Protocol Stop: 09/18/18 14:59 Glucagon (Glucagen) 1 mg SQ UD PRN; Protocol PRN Reason: Hypoglycemia Protocol Stop: 09/18/18 14:59 Glucose (Glucose 40%) 15 - 30 gm PO UD PRN; Protocol PRN Reason: Hypoglycemia Protocol Stop: 09/18/18 14:59 Glucose (Dex4 Glucose) 4 - 8 tabs PO UD PRN; Protocol PRN Reason: Hypoglycemia Protocol Stop: 09/18/18 14:59 Heparin Sodium (Porcine) (Heparin Sodium (Porcine)) 5,000 units SQ Q12 CHAYITO Stop: 09/18/18 20:59 Last Admin: 08/31/18 08:52 Dose: 5,000 units Hydroxyzine HCl (Vistaril) 10 mg PO Q4H PRN PRN Reason: Anxiety Stop: 09/25/18 11:54 Last Admin: 08/31/18 05:42 Dose: 10 mg Insulin Aspart (Novolog Flexpen) 0 units SC ACHS CHAYITO Stop: 09/18/18 16:29 Last Admin: 08/31/18 13:44 Dose: 1 units Lamotrigine (Lamictal) 50 mg PO BID CHAYITO Stop: 09/18/18 20:59 Last Admin: 08/31/18 08:51 Dose: 50 mg Lisinopril (Zestril) 10 mg PO DAILY CHAYITO Stop: 09/26/18 08:59 Last Admin: 08/31/18 08:52 Dose: 10 mg Lorazepam (Ativan) 0.5 mg PO TID PRN PRN Reason: Anxiety Stop: 09/18/18 14:59 Last Admin: 08/26/18 02:05 Dose: 0.5 mg Miscellaneous (Carbohydrates For Hypoglycemia) 15 - 30 gm PO UD PRN PRN Reason: Hypoglycemia Treatment Stop: 09/18/18 14:59 Nitroglycerin (Nitrostat) 0.4 mg SL UD PRN PRN Reason: Chest Pain Stop: 09/18/18 14:59 Pantoprazole Sodium (Protonix) 40 mg PO DAILY CHAYITO Stop: 09/19/18 08:59 Last Admin: 08/31/18 08:51 Dose: 40 mg Trazodone HCl (Desyrel) 100 mg PO HS [facility] Stop: 09/26/18 20:59 Last Admin: 08/30/18 20:19 Dose: 100 mg Resident Activity Tracking Resident Involvement: Resident Care Provided Care Provided: Adult Hospital Medicine
[2018-08-31] MEDS: ATORVASTATIN 40 MG TAB PO SCH (20:17)
[2018-08-31] MEDS: TRAZODONE HCL 100 MG TAB PO SCH (20:18)
[2018-09-01] MEDS: ACETAMINOPHEN 325 MG TAB PO PRN (01:46)
[2018-09-01] MEDS: hydrOXYzine HCl 10 MG TAB PO PRN ×2 (04:01→09:20)
--- NOTE | 2018-09-01 07:33 | Discharge Summary ---
Date of Service September 01, 2018 Admission HPI Per Admitting Provider 63 yo F with h/o bipolar depression, DM, HTN, HLD admitted for ARF, abnormal EKG and fever. Psychiatry consulted for evaluation for care home placement. Patient reports she is doing fine and states that she has been diagnosed with bipolar and depression. Denies depressive symptoms at this time and also denies psychotic or manic symptoms. She states she has a whom she loves and have been 35 years, and denies SI, intent or plan and denies HI/aVH. She was difficult of hearing at times but did answer all questions. Below auto-populated from chart: This patient presents from the [facility] with reportedly fevers at the [facility], severe acute renal failure, abnormal EKG elevated troponin and altered mental state Patient from [facility] we have very little records on the patient. Reportedly she has a history of diabetes heart disease hypertension dyslipidemia and severe recurrent major depression. While at the [facility] continuing her home medications including diuretics of Lasix and lisinopril metformin and lithium. Her renal function went from a creatinine 1.4 on presentation to now in the 5 range with a BUN 93. Patient cannot provide much history she did have stool incontinence during my evaluation and there is concern on the CT scan of her abdomen for colitis. There is no obstructive uropathy noted. Her white blood cell count is 20,000 he has no pneumonia or other focal signs of infection Perhaps she has C. difficile colitis precipitating dehydration which was urged on by her typical medications she will be admitted aggressively hydrated. The confounding variable is mild elevation of her troponin and abnormal EKG although not a consistent with acute cardiac syndrome Family history is unobtainable the patient's altered mental state Principal Diagnosis Ambulatory dysfunction, MDD Discharge Exam Constitutional WD/WN, vitals as above + obese and + behavioral limitations Eyes PERRL, conjunctivae normal, anicteric sclerae ENMT external ear and nose normal, oropharynx normal Neck normal visual inspection Respiratory normal respiratory effort, lungs clear to auscultation Cardiovascular RRR, no murmur, no edema Gastrointestinal (Abdomen) normal bowel sounds, soft, nontender, no hepatosplenomegaly Musculoskeletal Extremities: extremities normal to inspection Skin no rashes, warm and dry Neurologic Tremulous Psychiatric Orientation: alert Affect: + depressed affect and + flat affect Mood: + depressed mood Insight: + limited insight Judgement: + limited judgement Discharge Data Allergies Allergy/AdvReac Type Severity Reaction Status Date / Time aspirin Allergy Unknown Unverified 08/19/18 10:50 codeine Allergy Unknown Unverified 08/19/18 10:50 diazepam Allergy Unknown Unverified 08/19/18 10:50 fluoxetine Allergy Unknown Unverified 08/19/18 10:50 paroxetine Allergy Unknown Unverified 08/19/18 10:50 pseudoephedrine Allergy Unknown Unverified 08/19/18 10:50 tramadol Allergy Unknown Unverified 08/19/18 10:50 Consultations 08/19/18 12:48 ED Decision to Admit Stat 08/19/18 15:00 Consult Case Management - Discharge Planning Routine Consult Nephrology Routine 08/21/18 13:46 Consult Cardiology Routine 08/23/18 11:32 Consult Neurology Routine 08/24/18 13:03 Consult Psychiatry Routine Ordered Studies 08/19/18 10:14 CT abd pelvis wo con Stat CT head/brain wo con Stat Hospital Course (1) Ambulatory dysfunction: 63yoF with hx of HTN, HLD, DM and severe recurrent major depression presented from the [facility] on 08/19 with diarrhea and altered mental status. She was found to have severe acute renal failure likely secondary to dehydration from diarrhea. Her troponin also uptrended and she had some EKG changes (unsure if old vs. new given lack of history/medical records) but likely due to supply demand mismatch in the setting of significant CAD changes. Recurrent fall/ambulatory dysfunction/weakness Patient very frustrated regarding inability to ambulate. Difficulty participating with PT due to weakness. ?Related to antipsychotic (EPSE). Neurology consulted, appreciate recs: -- Electrolytes repleted, normal ammonia , nl TSH, B12 normal, LFTs overall normal (mild elevation of AST/ALT). Unfortunately patient unable to participate in MRI due to metal in her ear. - Continue rehabilitation - Adjustments made to psych meds (see below) Severe depression/mood disorder: Home meds: lithium, trazodone, lamotrogine, aripiprazole (a new medication for patient in past few months), and lorazepam PRN Patient spent 30 days at [facility] in June 2018 where aripiprazole was purportedly started at 30 mg daily. Per outside records it appears she felt she was overmedicated, at one point stopping aripiprazole and presenting to [facility] with insomnia, where she was referred back to psychiatrist who decreased dose to 15mg. She has then since been seen at [facility] for anxiety when she was voluntarily 201'd and sent to the [facility]. Per records from the [facility], only medication change made while there was a reduction of lamotrigine to 50mg BID, (from 100mg BID) and d/c of lithium for ARF. Psych consulted, recs appreciated. - Continue holding lithium in the setting of ARF likely caused by diarrhea. May choose to resume in outpatient setting during outpatient psych f/up. - Trazodone switched to 100mg HS instead of 100mg qAM - Per discussion with psych Karen MCLAUGHLIN, PRN lorazepam held for possible contributor to lethargy/weakness - ordered 12.5mg hydroxyzine q4h PRN anxiety instead - Per discussion with psychiatrist, Dr. Best, aripiprazole reduced from 15mg to 10mg daily --> Further decrease to 5mg daily on 08/28/18 and decreased to 2mg on 08/29/18 - Record release forms faxed to [facility] ( [place] [phone]) and [employer] (fax: [phone]) - awaiting outside facility records to direct further med adjustments Elevated troponin on bkgd of CAD + HLD + HTN Elevated troponin 0.47->0.34->0.159, EKG initially concerning, has since resolved. Has h/o CAD. ECHO: no wall motion abnl, EF 60-65%, grade 1 diastolic dysfunction Cardiology consulted, appreciate recs. No further workup needed at this time. - Started on aspirin, continue atorvastatin 40mg daily - Restarted lisinopril 08/27. Furosemide held for now, no evidence of fluid overload. Monitor BP DMII - Resume home Januvia and metformin - ISS while admitted, BSG well controlled GERD - Continue pantoprazole ARF in the setting of diarrhea, RESOLVED - BUN/Cr initially 93/5.6 with FeNA 0.7% --> now Cr normal. Abdominal CT: no renal calculi/hydronephrosis. No electrolyte abnormalities. Discontinued IVF - Resume home metformin, furosemide prn Diarrhea, RESOLVED No fever noted on EMR but pt was initially tachycardic. CT abdomen: concerning for diarrheal illness, no obstruction, C. diff negative. Blood cultures: NG. Received zosyn empiric coverage initially - discontinued on 08/20. Discontinued IVF 08/22/18 FEN: heart healthy, DMII diet. Code: Full (2) Severe depression: (3) Diabetes: (4) CAD (coronary artery disease): (5) Hypertension: (6) Elevated troponin: (7) Fever: (8) Colitis: (9) DVT prophylaxis: Total Time Total Time Spent Total Time Spent (In Minutes): <30 Discharge Plan Discharge Items Patient Disposition: Transfer [facility] Reason For Visit: ELEVATED TORPONIN, ABNORMAL ECG Discharge Diagnosis: MDD, ambulatory dysfunction, GREGORY, bipolar depression Discharge Goals: Improve disease control, Improve function and Increase independence Activity: Per 'Additional Instructions' section Non-emergency contact: Primary Care Provider and Psychiatrist Call non-emergency contact if: you have any medication questions, your symptoms worsen and your temperature is above 101.5 Follow-up/Referrals: elvia, fabián [Other] (follow up psych appt with [facility] Sep 09, 2018 2:50 pm [phone]) Diet: Carb Consistent or DM2 Addtl Provider Instructions: NOTE: PRIOR TO DISCHARGE, PT C/O URINARY SYMPTOMS. WILL ATTEMPT TO GET UA AND SEND FOR CX PRIOR TO DEPARTURE. KEEP LOW THRESHOLD TO RECULTURE AND TREAT PRN. IF NO INFECTION, CONSIDER SIDE EFFECT FROM MEDICATION CAUSE FOR RETENTION. 1) Ambulatory dysfunction: 63yoF with hx of HTN, HLD, DM and severe recurrent major depression presented from the [facility] on 08/19 with diarrhea and altered mental status. She was found to have severe acute renal failure likely secondary to dehydration from diarrhea. Her troponin also uptrended and she had some EKG changes (unsure if old vs. new given lack of history/medical records) but likely due to supply demand mismatch in the setting of significant CAD changes. Recurrent fall/ambulatory dysfunction/weakness Patient very frustrated regarding inability to ambulate. Difficulty participating with PT due to weakness. ?Related to antipsychotic (EPSE). Neurology consulted, appreciate recs: -- Electrolytes repleted, normal ammonia , nl TSH, B12 normal, LFTs overall normal (mild elevation of AST/ALT). Unfortunately patient unable to participate in MRI due to metal in her ear. - Continue rehabilitation - Adjustments made to psych meds (see below) Severe depression/mood disorder: Home meds: lithium, trazodone, lamotrogine, aripiprazole (a new medication for patient in past few months), and lorazepam PRN Patient spent 30 days at [facility] in June 2018 where aripiprazole was purportedly started at 30 mg daily. Per outside records it appears she felt she was overmedicated, at one point stopping aripiprazole and presenting to [facility] with insomnia, where she was referred back to psychiatrist who decreased dose to 15mg. She has then since been seen at [facility] for anxiety when she was voluntarily 201'd and sent to the [facility]. Per records from the [facility], only medication change made while there was a reduction of lamotrigine to 50mg BID, (from 100mg BID) and d/c of lithium for ARF. Psych consulted, recs appreciated. - Continue holding lithium in the setting of ARF likely caused by diarrhea. May choose to resume in outpatient setting during outpatient psych f/up. - Trazodone switched to 100mg HS instead of 100mg qAM - Per discussion with psych Karen MCLAUGHLIN, PRN lorazepam held for possible contributor to lethargy/weakness - ordered 12.5mg hydroxyzine q4h PRN anxiety instead - Per discussion with psychiatrist, Dr. Best, aripiprazole reduced from 15mg to 10mg daily --> Further decrease to 5mg daily on 08/28/18 and decreased to 2mg on 08/29/18 - Record release forms faxed to [facility] ( [place] [phone]) and [employer] (fax: [phone]) - awaiting outside facility records to direct further med adjustments Elevated troponin on bkgd of CAD + HLD + HTN Elevated troponin 0.47->0.34->0.159, EKG initially concerning, has since resolved. Has h/o CAD. ECHO: no wall motion abnl, EF 60-65%, grade 1 diastolic dysfunction Cardiology consulted, appreciate recs. No further workup needed at this time. - Started on aspirin, continue atorvastatin 40mg daily - Restarted lisinopril 08/27. Furosemide held for now, no evidence of fluid overload. Monitor BP DMII - Resume home Januvia and metformin - ISS while admitted, BSG well controlled GERD - Continue pantoprazole ARF in the setting of diarrhea, RESOLVED - BUN/Cr initially 93/5.6 with FeNA 0.7% --> now Cr normal. Abdominal CT: no renal calculi/hydronephrosis. No electrolyte abnormalities. Discontinued IVF - Resume home metformin, furosemide prn Diarrhea, RESOLVED No fever noted on EMR but pt was initially tachycardic. CT abdomen: concerning for diarrheal illness, no obstruction, C. diff negative. Blood cultures: NG. Received zosyn empiric coverage initially - discontinued on 08/20. Discontinued IVF 08/22/18 FEN: heart healthy, DMII diet. Code: Full Prescriptions: New trazodone 100 mg Tablet 100 mg PO HS 30 Days Qty: 30 RF: 0 aripiprazole 1 mg/mL Solution 2 ml PO DAILY 30 Days Qty: 60 RF: 0 aspirin [Aspir-81] 81 mg tablet,delayed release (DR/EC) 81 mg PO DAILY Qty: 30 RF: 0 pantoprazole 40 mg Tablet,Delayed Release (Dr/Ec) 40 mg PO DAILY 30 Days Qty: 30 RF: 0 hydroxyzine HCl 10 mg Tablet 10 mg PO Q4H PRN (Reason: anxiety) 30 Days Qty: 90 RF: 0 Continue atorvastatin 40 mg Tablet 40 mg PO HS RF: 0 acetaminophen 325 mg Tablet 325 mg PO Q4H PRN (Reason: Pain) RF: 0 lamotrigine 25 mg Tablet 50 mg PO BID RF: 0 montelukast 10 mg Tablet 10 mg PO PM RF: 0 lisinopril 10 mg Tablet 10 mg PO DAILY RF: 0 metformin 850 mg BID RF: 0 Discontinued lorazepam 0.5 mg Tablet 0.5 mg PO TID PRN (Reason: Anxiety) RF: 0 magnesium hydroxide [Milk of Magnesia] 400 mg/5 mL Suspension 30 ml PO DAILY PRN (Reason: Constipation) RF: 0 trazodone 100 mg Tablet 100 mg PO DAILY RF: 0 omeprazole 20 mg Capsule,Delayed Release(Dr/Ec) 20 mg PO DAILY RF: 0 alum-mag hydroxide-simeth [Mag-Al Plus] 200-200-20 mg/5 mL Suspension 30 ml PO QID PRN (Reason: Indigestion) RF: 0 aripiprazole 15 mg Tablet 15 mg PO DAILY RF: 0 citalopram 20 mg tablet 20 mg PO DAILY RF: 0 Visit Report Forms: My [facility] Stand-Alone Forms: [facility] Discharge Orders: Discharge Order (Routine); Ordered 09/01/18 Ordered By: Reena Ge Skilled Items Patient informed of condition?: Yes DNR: No Discharge Level of Care: Acute rehab Communicable Disease: No Discharge Prognosis: Improving Admission Data Admit Date/Time: 08/19/18 12:36 Attending Provider: Aleksey Polanco Admit Provider: Joaquin Hines Primary Care Provider: PCP,BRANDON Other Providers: Joaquin Hines ; Pravin Santiago ; Anuel Mcmillan ; Cathy Gilliam ; Wen Reid ; Audrey Jimenez Service: Medical Other Interventions: Discharge Summary Assessment (RN) Last Done: 08/31/18 13:09 DC Date/Time DO NOT enter until pt leaves facility: 09/01/18 12:30 Supervising Physician Co-Signing Physician Notes I personally examined the patient and verified all alvarado points of history and exam, discussed case, and agree with decision making with Dr Ge. Ready for discharge today. Later we will call that she has a degree of urinary retention that is new. Vitals noted, resting comfortably no distress. Pleasant and feels ready to go to SNF. No focal neuro deficits, her tremor seems less she is quiet. Weaknessprobably relates to her psychiatric meds which are being readjusted. Ongoing PT and OT at SNF Anxietyongoing psych follow-up as well, as she seems to have a delicate balance between her anxiety, and suffering side effects from her medications. Parkinsonismneurology felt this was highly likely related to her Abilify, continue to wean as possible Urinary retentionthis is new today, certainly it can be managed in the SNF setting. UA and culture have been sent, straight cath as needed Resident Activity Tracking Resident Involvement: Resident Care Provided Care Provided: Adult Hospital Medicine
[2018-09-01] MEDS: LISINOPRIL 10 MG TAB PO SCH (07:43)
[2018-09-01] MEDS: ARIPIprazole 1 MG/ML ORAL SOLN 150 ML BTL PO SCH (07:46)
[2018-09-01] MEDS: ASPIRIN 81 MG ECTAB PO SCH (07:47)
[2018-09-01] MEDS: lamoTRIgine 25 MG TAB PO SCH (07:47)
[2018-09-01] MEDS: PANTOprazole 40 MG TAB PO SCH (07:48)
[2018-09-01] MEDS: HEPARIN SOD 5,000 UNIT/0.5 ML VIAL SQ SCH (09:23)
[2018-09-01] MEDS: INSULIN ASPART 100 UNITS/ML 3 ML PEN SC SCH (09:23)
--- NOTE | 2018-09-02 12:00 | Coding Query ---
PRESENT ON ADMISSION QUERY To promote full compliance with coding requirements relating to pateint care, physician participation is requested in all cases of it support specialist uncertainty. Please assist us with the question(s) below: Please place an X within the parenthesis (x). The following diagnosis(es) listed in this patient's medical record require physician assistance to determine if they were present on admission (POA) or not. Please advise for each diagnosis whether it was present on admission, not present on admission, or if it was clinically undetermined. 1. AMBULATORY DYSFUNCTION (documented beginning on 08/22 Progress note with Leg weakness/?fatigue/?tremors, and throughout the remainder of the record describing ambulatory dysfunction. The H&P physical exam, under Neurologic exam describes no focal deficits, strength is equal bilateral he is tremulous and agitated.) ( xx) Present On Admission ( ) Not Present On Admission ( ) Clinically Undetermined, at the time of admission I would say I felt that there were other medical problems to be ruled out to determine if she was able to walk or not, she was not at the time I saw her e Thank you Sammi Land *Definition of the present on admission (POA)-Present on admission is defined as present at the time the order for inpatient admission occurs. Conditions that develop during an outpatient encounter prior to a written order for inpatient admission (including emergency department, observation, or outpatient surgery) are considered present on admission. MTDD
--- NOTE | 2018-09-02 12:01 | Coding Query ---
To promote full compliance with coding requirements relating to patient care, provider participation is requested in all cases of chief executive or managing director uncertainty. Please assist us with the question(s) below: Coding Question(s): The diagnosis(es) below was documented in the ER H&P, then subsequently fell off all further documentation. Please indicate if it is still a possible diagnosis or ruled out. Physician's Response(s): SEPSIS ( ) Diagnosed and POA ( ) Diagnosed and not POA ( x ) Ruled out ( ) Other (please specify) MTDD
== END 2018-09-01 12:30 | DRG 57 ==
LOC: ED 10:01 → 2S 12:36 → SUATTDRO 12:36 → 2S 13:35 → 2W 08-20 18:22